=== PATIENT | female | born 1980 | race Caucasian/White ===

== ENCOUNTER → 2016-11-12 | Outpatient (CLI) | payer MEDICAID ==
[~2016-11-12] MED LIST: AMOX875T2 PO; AZIT250T5 PO; CYCL10TA9 PO; DOXY1TAB3 PO; HYOS0.1283 SL; MTP25TSR; MTP25TSR PO; ONDA4TAB8 PO; PNV91TAB3 PO
--- NOTE | 2016-11-12 12:39 | Diagnostic Imaging Report ---
First trimester OB ultrasound. INDICATION: Dating. FINDINGS: There is a normal-appearing single intrauterine . An embryo is seen with cardiac activity at 176 beats per minute. The crown-rump length is at 10 weeks and 2 days. DEBBY is 06/08/17. The ovaries are obscured by bowel gas . IMPRESSION: Live single intrauterine . Dictated by: Dictated on workstation # [id number]
== END ==
LOC: RAD 11:35
PROVIDERS: ATTEND Family Medicine
DX: Z36 Encounter for antenatal screening of mother (principal); Z3A.10 10 weeks gestation of pregnancy
CPT/HCPCS: 76801

== ENCOUNTER 2016-12-08 20:31 | Emergency (ER) | payer MEDICAID ==
[~2016-12-08] VITALS: Ht 154.9 cm; Wt 65.8 kg
[~2016-12-08 20:31] MED LIST changes: -AMOX875T2 PO; -AZIT250T5 PO; -DOXY1TAB3 PO; -PNV91TAB3 PO
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
[2016-12-08] MEDS ORDERED: PNV91TAB3 PO (20:47)
[2016-12-08] MEDS ORDERED: AMOX875T2 PO (20:47)
[2016-12-08 21:04] LABS: BILIRUBIN,URINE NEGATIVE (NEGATIVE); KETONES,URINE NEGATIVE (NEGATIVE); LEUKOCYTE ESTERASE ,URINE NEGATIVE (NEGATIVE); NITRITE,URINE NEGATIVE (NEGATIVE); PH,URINE 7 (5-9); PROTEIN,URINE NEGATIVE (NEGATIVE); UROBILINOGEN,URINE NORMAL (NORMAL)
--- NOTE | 2016-12-08 21:20 | ED GU-Female ---
General Chief Complaint: -Female Stated Complaint: SPOTTING, CRAMPING, APPROX 17 WKS PREG Nursing Triage Note: Pt c/o spotting starting just HAT PRESSER and lower abd cramping Nursing Sepsis Screen: No Definite Risk Source: patient Exam Limitations: no limitations History of Present Illness Time seen by provider: 21:03 Initial Comments Here with report of vaginal spotting tonight. She is and she is not exactly sure how far and thinks it may be 13 weeks now. She did have ultrasound which showed intrauterine . She does follow with Dr. Cortes. Denies vaginal discharge. She has not been sexually active for the last month. Denies persistent spotting. She does have some bilateral lower quadrant pain that is intermittent. Denies nausea or vomiting. Timing/Duration: this afternoon, intermittent Severity/Quality: mild Location: RLQ, LLQ Radiation: none Activities at Onset: none Sexual [place] History: less than 2 months ago, single partner Associated Symptoms: abdominal painNo dysuria, No fever/chills, No nausea/ vomiting, No urinary frequency Allergies and Home Medications Allergies Coded Allergies: No Known Drug Allergies (Unverified , 12/08/16) Home Medications Amoxicillin 875 Mg Tablet #20 875 MG PO BID (Reported) Pnv95/Ferrous Fumarate/FA 1 Each Tablet 1 EACH PO DAILY (Reported) Constitutional: see HPINo chills, No fever EENTM: no symptoms reported Respiratory: no symptoms reported Cardiovascular: no symptoms reported Gastrointestinal: see HPI Genitourinary: see HPI Expected Date of Delivery: Jun 08, 2017 Musculoskeletal: no symptoms reported Skin: no symptoms reported Past Gbkngjg-Skneys-Pdchlb Hx Patient Social History Alcohol Use: Denies Use Recreational Drug Use: No Smoking Status: Former Smoker Type Used: Cigarettes Recent Foreign Travel: No Contact w/Someone Who Travel: No Recent Infectious Disease Expo: No Recent Hopitalizations: Yes (during , 09/28, ) Surgeries HX Surgeries: Yes (BREAST-BENIGN LUMPECTOMY; ?LEEP? OF CERVIX; R WRIST/HAND-? GANGLION?; L KNEE) Surgeries: Breast, Orthopedic Respiratory Hx Respiratory Disorders: No Cardiovascular Hx Cardiac Disorders: No Neurological Hx Neurological Disorders: No Reproductive System : Yes Hx Reproductive Disorders: Yes (CERVICAL DYSPLASIA) Sexually Transmitted Disease: No Genitourinary Hx Genitourinary Disorders: No Gastrointestinal Hx Gastrointestinal Disorders: No Musculoskeletal Hx Musculoskeletal Disorders: Yes (RIGHT HAND/WRIST SURGERY, LEFT KNEE SURGERY) Endocrine Hx Endocrine Disorders: No HEENT HX ENT Disorders: No Cancer Hx Cancer: No Psychosocial Hx Psychiatric Problems: No Integumentary HX Skin/Integumentary Disorder: No Blood Transfusions Hx Blood Disorders: No Reviewed Nursing Assessment Reviewed/Agree w Nursing PMH: Yes Family Medical History Significant Family History: No Pertinent Family Hx Physical Exam Vital Signs Vital Sign - Last 12Hours 12/08/16 20:47 Temp 99.2 Pulse 86 Resp 18 B/P 128/79 Pulse Ox 97 O2 Delivery Room Air Capillary Refill : Less Than 3 Seconds General Appearance: WD/WN no apparent distress Neck: full range of motion supple Cardiovascular: regular rate, rhythm no murmur Respiratory: lungs clear normal breath sounds Gastrointestinal: non tender soft Pelvic: other (deferred per patient request) Back: normal inspection no CVA tenderness no vertebral tenderness Extremities: non-tender normal inspection Neurologic/Psychiatric: alert oriented x 3 Skin: normal color warm/dry Progress/Results/Core Measures Results/Orders Lab Results Laboratory Tests Test 12/08/16 20:56 Range/Units Urine Bacteria NEGATIVE /HPF Urine Bilirubin NEGATIVE NEGATIVE Urine Casts NONE /LPF Urine Clarity CLEAR Urine Color YELLOW Urine Crystals NONE /LPF Urine Culture Indicated NO Urine Glucose (UA) NEGATIVE NEGATIVE Urine Ketones NEGATIVE NEGATIVE Urine Leukocyte Esterase NEGATIVE NEGATIVE Urine Mucus NEGATIVE /LPF Urine Nitrite NEGATIVE NEGATIVE Urine Protein NEGATIVE NEGATIVE Urine RBC RARE /HPF Urine RBC (Auto) NEGATIVE NEGATIVE Urine Renal Epithelial Cells NONE /HPF Urine Specific [place] 1.015 L 1.016-1.022 Urine Squamous Epithelial Cells >50 H /HPF Urine Urobilinogen NORMAL NORMAL MG/DL Urine WBC 0-2 /HPF Urine pH 7 5-9 My Orders Orders-DWAYNE DEL ROSARIO MD Ua Culture If Indicated (12/08/16 20:54) Vital Signs/I&O Vital Sign - Last 12Hours 12/08/16 20:47 Temp 99.2 Pulse 86 Resp 18 B/P 128/79 Pulse Ox 97 O2 Delivery Room Air Blood Pressure Mean: 95 Progress Note : Progress Note Seen and evaluated. UA ordered. Bedside ultrasound shows intrauterine with fetus approximately 13 5/7 by femur length, positive movement and moderate amount of amniotic fluid. We will defer pelvic exam currently is patient denies vaginal discharge and she would like to wait to see her sales solutions associate which is reasonable. She is reassured by ultrasound. Monitor patient. 2200: No acute findings on UA. Discharged home with return precautions. Patient verbalize understanding instructions and agreement with plan. Departure Impression Impression: Primary Impression: Threatened miscarriage Additional Impression: Abdominal pain during Qualified Code: O26.891 - Other specified related conditions, first trimester Disposition: HOME, SELF-CARE Condition: Improved Departure-Patient Inst. Decision time for Depature: 21:24 Referrals: PATIENCE CORTES MD (PCP/Family) Primary Care Physician Patient Instructions: Threatened Miscarriage (DC) Add. Discharge Instructions: All discharge instructions reviewed with patient and/or family. Voiced understanding. Pelvic rest meaning no sexual activity or intravaginal insertion until cleared by your sales solutions associate. Follow-up with your Dr. in one to 2 days for recheck and further evaluation. Return for worse pain, fever, vomiting, weakness, breathing problems or other concerns as needed. You may take Tylenol ( acetaminophen) per package directions as needed for pain. Copy Copies To 1: PATIENCE CORTES MD, TIMOTHY D MD Dec 08, 2016 21:20
[2016-12-08 21:24] LABS: SQUAMOUS EPITHELIAL CELL,UR >50 /HPF; WBC,URINE 0-2 /HPF
[2016-12-08 22:10] VITALS: BP 117/82
== END 2016-12-08 22:10 | disposition home or self-care (01) ==
LOC: EDUNIT# 20:31 → ER 20:33
DX: O20.0 Threatened abortion (principal); O26.891 Other specified pregnancy related conditions, first trimester; Z3A.13 13 weeks gestation of pregnancy
CPT/HCPCS: 81000; 99283

== ENCOUNTER 2016-12-12 01:39 | Emergency (ER) | payer MEDICAID ==
[~2016-12-12] VITALS: Ht 154.9 cm; Wt 65.8 kg
[~2016-12-12 01:39] MED LIST changes: +AMOX875T2 PO; +PNV91TAB3 PO
--- OUTSIDE RECORDS SUMMARY | 2016-12-12 01:46 | XMS REPORT | Continuity of Care Document ---
Author Author [facility] Organization [facility] Address Unknown Phone Unavailable Care Team Providers Care Ict Teacher Name Role Phone PATIENCE JOHNSTON MD PCP Insurance Providers Payer Name Policy Number Subscriber Name Relationship [employer] [id number] Clint Rocha 18 Self / Same As Patient Advance Directives Directive Response Recorded Date/Time Advance Directives No 12/08/16 8:47pm Health Care Power of Cargo Tank Mechanic No 12/08/16 8:47pm Organ Donor No 12/08/16 8:47pm Resuscitation Status Full Code 12/08/16 8:47pm Chief Complaint and Reason for Visit Chief Complaint -Female Reason for Visit [id number] Abdominal pain during Problems Active Problems Medical Problem Onset Date Status Abdominal pain Unknown Acute Abdominal pain during Unknown Acute Threatened miscarriage Unknown Acute Medications Current Home Medications Medication Dose Units Route Directions Days/Qty Instructions Start Date Pnv95/Ferrous Fumarate/Fa 1 Each 1 Each Oral Daily 12/08/16 Amoxicillin 875 Mg 875 Mg Oral Twice A Day 20 12/08/16 Past Home Medications Medication Directions Ordered Status Metoprolol Succinate (Metoprolol Er 25MG) 25 Mg Tab, 12/19/09 Discontinued Metoprolol Succinate (Metoprolol Er 25MG) 25 Mg Tab, 25 Mg Oral Daily Discontinued Cyclobenzaprine Hcl (Flexeril) 10 Mg Tablet, 1 Each Oral Q8hr Prn 12/19/09 Discontinued Hyoscyamine Sulfate 0.125 Mg Tab.subl, 1-2 Tab Sublingual Every 4HRS for Abdominal Pain 02/02/16 Discontinued Ondansetron 4 Mg Tab.rapdis, 4 Mg Oral Every 4HRS for Nausea/Vomiting Discontinued Social History Social History Problem Response Recorded Date/Time Alcohol Use Denies Use 02/01/2016 11:33pm Recreational Drug Use No 02/01/2016 11:33pm Recent Foreign Travel No 12/08/2016 8:47pm Recent Infectious Disease Exposure No 12/08/2016 8:47pm Sexually Transmitted Disease No 12/08/2016 8:47pm Smoking Status Former Smoker 12/08/2016 8:47pm Do you dip or chew tobacco? No 02/01/2016 11:33pm Type Used Cigarettes 12/08/2016 8:47pm Recent Hopitalizations Y during , 09/28, 12/08/2016 8:47pm Sexually Transmitted Disease No 12/08/2016 8:47pm Hx Sexually Transmitted Disorders No 07/14/2008 10:55am Query Response Start Date Stop Date Smoking Status Former Smoker Hospital Discharge Instructions No hospital discharge instructions. Plan of Care Discharge Date 12/08/16 10:10pm Disposition 01 HOME, SELF-CARE Condition at Discharge Improved Instructions/Education Provided Threatened Miscarriage (DC) Prescriptions See Medication Section Referrals PATIENCE JOHNSTON MD - Primary Care Physician Additional Instructions/Education All discharge instructions reviewed with patient and/or family. Voiced understanding. 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 Follow-up with your Dr. in one to 2 days for recheck and further evaluation. Return for worse pain, fever, vomiting, weakness, breathing problems or other concerns as needed. You may take Tylenol (acetaminophen) per package directions as needed for pain. Functional Status No functional status results. Allergies, Adverse Reactions, Alerts No known allergies. Immunizations No immunization records. Vital Signs Acute Vital Signs Vital Response Date/Time Temperature (Fahrenheit) 99.2 degrees F (97.6 - 99.5) 12/08/2016 8:47pm Temperature (Calculated Celsius) 37.15416 degrees C (36.4 - 37.5) 12/08/2016 8:47pm Temperature Source Tympanic 12/08/2016 8:47pm Pulse Rate (adult) 86 bpm (60 - 90) 12/08/2016 8:47pm Respiratory Rate 18 bpm (12 - 24) 12/08/2016 8:47pm O2 Sat by Pulse Oximetry 97 % (88 - 100) 12/08/2016 8:47pm Blood Pressure 128/79 mm Hg 12/08/2016 8:47pm Blood Pressure Mean 95 mm Hg 12/08/2016 8:47pm Pain Numeric Pain Scale 5-Moderate Pain 12/08/2016 8:47pm Height (Feet) 5 feet 12/08/2016 8:47pm Height (Inches) 1 inches 12/08/2016 8:47pm Height (Calculated Centimeters) 154.237198 cm 12/08/2016 8:47pm Weight (Pounds) 145 pounds 12/08/2016 8:47pm Weight (Calculated Kilograms) 65.028401 kilograms 12/08/2016 8:47pm Capillary Refill Capillary Refill Less Than 3 Seconds 12/08/2016 8:47pm Height 5 ft 1 in Weight 145 lb Body Mass Index 27.4 kg/m^2 Results Pending Laboratory Results Test Name Collection Date/Time Procedures No known history of procedures. Encounters Encounter Location Arrival/Admit Date Discharge/Depart Date Attending Provider Departed Emergency Room [facility] 12/08/16 8:33pm 12/08 10:10pm DWAYNE DEL ROSARIO MD Registered Clinic [facility] 11/12/16 11:35am PATIENCE JOHNSTON MD Recent Diagnosis
[2016-12-12] MEDS ORDERED: ONDANSETRON 4 MG (ZOFRAN) ORAL DISSOLVE TAB PO ONE (02:00)
--- NOTE | 2016-12-12 02:13 | ED GI ---
General Chief Complaint: Abdominal/GI Problems Stated Complaint: N/V/D,13 1/2 WKS PREG Nursing Triage Note: PT TO ED 10 W/ FAMILY FOR C/O N/V/D ET ABD CRAMPING ONSET 1899 TONIGHT. PT ALSO REPORTS SHE IS 13 WKS AT THIS TIME Sepsis Screen: No Definite Risk Source of Information: Patient History of Present Illness Time Seen By Provider: 01:50 Initial Comments PT STATES SHE HAS HAD NAUSEA/VOMITING/DIARRHEA SINCE 1899 TONIGHT--FELT FINE ALL DAY TODAY STATES SHE HAS VOMITED AND HAD DIARRHEA "AT LEAST 20 TIMES EACH" LAST VOID UNKNOWN--STATES SHE DOES NOT KNOW IF SHE URINATES WHEN SHE HAS DIARRHEA OR NOT NO FEVER GENERALIZED ABDOMINAL SORENESS FROM VOMITING YOUNGEST CHILD HAS BEEN ILL WITH SAME--BROUGHT TO ER ON FRIDAY PT WAS ALSO SEEN HERE IN ER ON FRIDAY FOR MILD ABDOMINAL PAIN AND SLIGHT SPOTTING ONE TIME--NO PROBLEMS SINCE PT IS 13 WEEKS . HAS NOT HAD SIGNIFICANT MORNING SICKNESS WITH THIS PT HAS BEEN ON AMOXIL FOR URI--THOSE SYMPTOMS ARE BETTER. SEEN LAST WEEK BY DR. JOHNSTON, HAS ANOTHER WEEKS' WORTH OF MEDICATION --WAS GIVEN 10 DAY SUPPLY PCP: DR. JOHNSTON--SEEN 11/26/16 FOR OB VISIT Allergies and Home Medications Allergies Coded Allergies: No Known Drug Allergies (Unverified , 12/08/16) Home Medications Amoxicillin 875 Mg Tablet #20 875 MG PO BID (Reported) Doxylamine/Pyridoxine HCl 1 Each Tablet. #14 2 EACH PO HS Prescribed by: MIRIAN HARRISON on 12/12/16 0246 Ondansetron 4 Mg Tab.rapdis #6 4 MG PO Q4H Prescribed by: MIRIAN HARRISON on 12/12/16 0246 Pnv95/Ferrous Fumarate/FA 1 Each Tablet 1 EACH PO DAILY (Reported) Review of Systems Constitutional: no symptoms reported EENTM: See HPI Respiratory: No Symptoms Reported Cardiovascular: No Symptoms Reported Gastrointestinal: See HPI Genitourinary: See HPI Musculoskeletal: no symptoms reported Skin: no symptoms reported Psychiatric/Neurological: No Symptoms Reported Endocrine: No Symptoms Reported Hematologic/Lymphatic: No Symptoms Reported Past Pweaamy-Nabxmn-Bblcvb Hx Patient Social History Alcohol Use: Denies Use Recreational Drug Use: No Smoking Status: Former Smoker Type Used: Cigarettes Recent Foreign Travel: No Contact w/Someone Who Travel: No Recent Infectious Disease Expo: No Recent Hopitalizations: No Surgeries HX Surgeries: Yes (BREAST-BENIGN LUMPECTOMY; ?LEEP? OF CERVIX; R WRIST/HAND-? GANGLION?; L KNEE) Surgeries: Breast, Orthopedic Respiratory Hx Respiratory Disorders: No Cardiovascular Hx Cardiac Disorders: No Neurological Hx Neurological Disorders: No Reproductive System Hx : 4 Hx Para: 3 Hx Total # of Abortions (Spona: 0 Hx Reproductive Disorders: Yes (CERVICAL DYSPLASIA) Sexually Transmitted Disease: No Genitourinary Hx Genitourinary Disorders: No Gastrointestinal Hx Gastrointestinal Disorders: No Musculoskeletal Hx Musculoskeletal Disorders: Yes (RIGHT HAND/WRIST SURGERY, LEFT KNEE SURGERY) Endocrine Hx Endocrine Disorders: No HEENT HX ENT Disorders: No Cancer Hx Cancer: No Psychosocial Hx Psychiatric Problems: No Integumentary HX Skin/Integumentary Disorder: No Blood Transfusions Hx Blood Disorders: No Family Medical History Significant Family History: No Pertinent Family Hx Physical Exam Vital Signs VS - Last 72 Hours, by Label 12/12/16 01:44 Temp 95.8 Pulse 105 Resp 18 B/P 113/89 Pulse Ox 99 O2 Delivery Room Air Capillary Refill : Less Than 3 Seconds General Appearance: WD/WN no apparent distress other HEENT: PERRL/EOMI other (ORAL MUCOSA MOIST) Neck: normal inspection Respiratory: normal breath sounds no respiratory distress no accessory muscle use Cardiovascular: regular rate, rhythm no murmur Gastrointestinal: normal bowel sounds soft other (MILD DIFFUSE TENDERNESS. FUNDUS JUST ABOVE PUBIS) Extremities: normal inspection no pedal edema Back: no CVA tenderness Neurologic/Psychiatric: campground hand II-XII nml as tested no motor/sensory deficits alert normal mood/affect oriented x 3 Skin: normal color warm/dry Progress/Results/Core Measures Results/Orders My Orders Orders-MIRIAN HARRISON DO Ondansetron Oral Dissolve Tab (Zofran (12/12/16 02:00) Rx-Ondansetron Po (Rx-Zofran Po) (12/12/16 02:51) Medications Given in ED Current Medications Medications Dose Ordered Sig/Jeane Route Start Time Stop Time Status Last Admin Dose Admin Ondansetron HCl 4 mg ONCE ONCE PO 12/12/16 02:00 12/12/16 02:01 DC 12/12/16 02:01 4 MG Vital Signs/I&O Vital Sign - Last 12Hours 12/12/16 01:44 Temp 95.8 Pulse 105 Resp 18 B/P 113/89 Pulse Ox 99 O2 Delivery Room Air Blood Pressure Mean: 97 Progress Note : Progress Note GIVEN ZOFRAN--KEEPING WATER AND ICE CHIPS DOWN. STATES SHE IS FEELING MUCH BETTER NO VOMITING OR DIARRHEA DURING ER STAY Departure Impression Impression: Primary Impression: Gastroenteritis Disposition: HOME, SELF-CARE Condition: Improved Departure-Patient Inst. Referrals: PATIENCE JOHNSTON MD (PCP/Family) Primary Care Physician Patient Instructions: Viral Gastroenteritis, Adult (DC) Add. Discharge Instructions: CLEAR LIQUIDS--WATER, BROTH, JELLO, GATORADE TOMORROW IF YOU ARE BETTER, ADD BRATS DIET TO CLEAR LIQUIDS--BANANAS, RICE, APPLESAUCE, TOAST, SALTINES ACIDOPHILUS 2 PILLS 4 TIMES A DAY FOR 1 [address] FOLLOW UP WITH DR. JOHNSTON IN 1-2 DAYS IF NO BETTER All discharge instructions reviewed with patient and/or family. Voiced understanding. Scripts Ondansetron (Zofran Odt)4 Mg Tab.rapdis4 Mg PO Q4H Nausea/Vomiting #6 TAB Prov:MIRIAN HARRISON DO 12/12/16 Doxylamine/Pyridoxine HCl (Que Win 10-10 mg Tablet)1 Each Tablet.dr2 Each PO HS #14 TAB Prov:MIRIAN HARRISON DO 12/12/16 MIRIAN HARRISON DO Dec 12, 2016 02:13
[2016-12-12] MEDS ORDERED: ONDA4TAB8 PO ×2 (02:46→03:05)
[2016-12-12] MEDS ORDERED: DOXY1TAB3 PO ×2 (02:46→03:05)
[2016-12-12] MEDS ORDERED: RX-ONDANSETRON 4 MG ODT (ZOFRAN) PPK #4 PO STA (02:51)
[2016-12-12 02:58] VITALS: BP 0/0
== END 2016-12-12 02:58 | disposition home or self-care (01) ==
LOC: EDUNIT# 01:39 → ER 01:42
DX: O99.611 Diseases of the digestive system complicating pregnancy, first trimester (principal); K52.9 Noninfective gastroenteritis and colitis, unspecified; Z87.891 Personal history of nicotine dependence; Z3A.13 13 weeks gestation of pregnancy
CPT/HCPCS: 99283

== ENCOUNTER → 2017-01-27 | Outpatient (CLI) | payer MEDICAID ==
[~2017-01-27] MED LIST changes: +AZIT250T5 PO; +DOXY1TAB3 PO
--- NOTE | 2017-01-27 12:06 | Diagnostic Imaging Report ---
OB ultrasound. INDICATION: survey. The previous OB ultrasound exam performed on 11/12/2016, noted a single live intrauterine of approximately 10 weeks 2 days gestation +/- 1 week. On this study the fetus is again visualized. The fetus is cephalic in presentation. heart motion was noted, and a rate of 146 bpm was recorded. There are no abnormalities identified. The growth parameters are fairly uniform and have progressed as expected since the prior exam. The growth parameters are as follows: BPD: 5.11 20 weeks 4 days. Head circumference: 18.84 21 weeks 1 day. Abdominal circumference: 16.49 21 weeks 4 days. Femur length: 3.61 21 weeks 4 days. The estimated weight is 426 g. The LMP percentile is 62 percent. The placenta is posterior, and there is no previa. The amniotic fluid volume is within normal limits. The cervix was identified and measures 4.8 cm in length (normal 3 cm or greater.) IMPRESSION: 1. There is a single live fetus approximately 21 weeks 1 day gestation +/- 1 week. EDC remains 06/08/2017. 2. There are no abnormalities identified. 3. The growth parameters have progressed as expected since the prior exam. Dictated by: Dictated on workstation # [id number]
== END ==
LOC: RAD 11:06
PROVIDERS: ATTEND Family Medicine
DX: Z34.82 Encounter for supervision of other normal pregnancy, second trimester (principal); Z36 Encounter for antenatal screening of mother
CPT/HCPCS: 76805

== ENCOUNTER 2017-02-08 21:42 | Emergency (ER) | payer MEDICAID ==
[~2017-02-08] VITALS: Ht 154.9 cm; Wt 70.8 kg
[~2017-02-08 21:42] MED LIST changes: -AZIT250T5 PO
[2017-02-08] MEDS ORDERED: AZIT250T5 PO (22:34)
--- NOTE | 2017-02-08 22:34 | ED Cough/URI ---
General Chief Complaint: Cough/Cold/Flu Symptoms Stated Complaint: CHEST CONGESTION Nursing Triage Note: pt c/o congestion in chest and ears with cough, symptoms started this am, denies contractions, vag leakage, no difficulty with urination Source: patient Exam Limitations: no limitations History of Present Illness Time seen by provider: 22:31 Initial Comments To ER with rhinorrhea, sore throat, nonproductive cough and pressure in her ears that began this morning upon awakening. No fevers. She is , about 23 weeks gestation. Timing/Duration: this morning Severity/Quality: mild Associated Symptoms: cough Allergies and Home Medications Allergies Coded Allergies: No Known Drug Allergies (Unverified , 12/08/16) Home Medications Amoxicillin 875 Mg Tablet, 875 MG PO BID, #20 (Reported) Doxylamine/Pyridoxine HCl 1 Each Tablet.dr, 2 EACH PO HS, #14 Prescribed by: MIRIAN HARRISON on 12/12/16 0305 Ondansetron 4 Mg Tab.rapdis, 4 MG PO Q4H, #6 Prescribed by: MIRIAN HARRISON on 12/12/16 0305 Pnv95/Ferrous Fumarate/FA 1 Each Tablet, 1 EACH PO DAILY, (Reported) Constitutional: see HPI, No chills, No fever EENTM: ear pain, see HPI Respiratory: see HPI, cough Genitourinary: no symptoms reported Expected Date of Delivery: Jun 08, 2017 Musculoskeletal: no symptoms reported Past Xofgetl-Fwmbkm-Yzqwhb Hx Patient Social History Type Used: Cigarettes Recent Foreign Travel: No Contact w/Someone Who Travel: No Recent Infectious Disease Expo: No Recent Hopitalizations: No Surgeries HX Surgeries: Yes (BREAST-BENIGN LUMPECTOMY; ?LEEP? OF CERVIX; R WRIST/HAND-? GANGLION?; L KNEE) Surgeries: Breast, Orthopedic Respiratory Hx Respiratory Disorders: No Cardiovascular Hx Cardiac Disorders: No Neurological Hx Neurological Disorders: No Reproductive System : Yes Hx : 3 Hx Para: 3 Hx Reproductive Disorders: Yes (CERVICAL DYSPLASIA) Sexually Transmitted Disease: No Genitourinary Hx Genitourinary Disorders: No Gastrointestinal Hx Gastrointestinal Disorders: No Musculoskeletal Hx Musculoskeletal Disorders: Yes (RIGHT HAND/WRIST SURGERY, LEFT KNEE SURGERY) Endocrine Hx Endocrine Disorders: No HEENT HX ENT Disorders: No Cancer Hx Cancer: No Psychosocial Hx Psychiatric Problems: No Integumentary HX Skin/Integumentary Disorder: No Blood Transfusions Hx Blood Disorders: No Family Medical History Significant Family History: No Pertinent Family Hx Physical Exam Vital Signs Vital Sign - Last 12Hours 02/08/17 21:59 Temp 99.3 Pulse 103 Resp 22 B/P (MAP) 117/68 Pulse Ox 99 O2 Delivery Room Air Capillary Refill : Less Than 3 Seconds General Appearance: WD/WN, no apparent distress Eyes: Bilateral Eye EOMI, Bilateral Eye Normal Inspection, Bilateral Eye PERRL HEENT: PERRL/EOMI, normal ENT inspection, TMs normal, pharyngeal erythema Neck: non-tender, full range of motion Respiratory: no respiratory distress, no accessory muscle use Gastrointestinal: normal bowel sounds, non tender, soft Extremities: normal range of motion, non-tender Neurologic/Psychiatric: alert, normal mood/affect Skin: normal color, warm/dry Progress/Results/Core Measures Results/Orders My Orders Orders - JAMES VALENTIN APRN Azithromycin Tablet (Zithromax Tablet) (02/09/17 09:00) Vital Signs/I&O Vital Sign - Last 12Hours 02/08/17 21:59 Temp 99.3 Pulse 103 Resp 22 B/P (MAP) 117/68 Pulse Ox 99 O2 Delivery Room Air Blood Pressure Mean: 84 Departure Impression Impression: Primary Impression: Upper respiratory infection Disposition: 01 HOME, SELF-CARE Condition: Stable Departure-Patient Inst. Decision time for Depature: 22:33 Referrals: PATIENCE JOHNSTON MD (PCP/Family) Primary Care Physician Patient Instructions: Bacterial Upper Respiratory Infection, Adult (DC) Add. Discharge Instructions: 1. Follow-up with Dr. Johnston next week 2. Return to ER for any concerns 3. Tylenol as needed for aches or fevers. Benadryl for runny nose. All discharge instructions reviewed with patient and/or family. Voiced understanding. Scripts Azithromycin (Azithromycin) 250 Mg Tablet 250 MG PO DAILY, #4 TAB Prov: JAMES VALENTIN APRN 02/08/17 JAMES VALENTIN APRN Feb 08, 2017 22:34
[2017-02-08] MEDS ORDERED: AZITHROMYCIN 250 MG TAB (ZITHROMAX) PO ONE (22:41)
[2017-02-08 22:46] VITALS: BP 0/0
[2017-02-09] MEDS ORDERED: AZITHROMYCIN 250 MG TAB (ZITHROMAX) PO SCH (09:00)
== END 2017-02-08 22:46 | disposition home or self-care (01) ==
LOC: EDUNIT# 21:42 → ER 21:44
DX: O99.512 Diseases of the respiratory system complicating pregnancy, second trimester (principal); J06.9 Acute upper respiratory infection, unspecified; Z3A.23 23 weeks gestation of pregnancy
CPT/HCPCS: 99283

== ENCOUNTER 2017-04-28 09:39 | Outpatient (RCR) | payer MEDICAID ==
[~2017-04-28] VITALS: Ht 154.9 cm; Wt 75.3 kg
[~2017-04-28 09:39] MED LIST changes: +AZIT250T5 PO
[2017-04-28 10:45] VITALS: BP 121/76
[2017-05-05 11:35] VITALS: BP 162/80
[2017-05-12 10:52] VITALS: BP 132/91
[2017-05-19] VITALS (7 sets, daily range): BP systolic 130–170; BP diastolic 75–115
[2017-05-19] MEDS ORDERED: D5 LR IV SOLUTION 1,000 ML IV ONE (12:15)
[2017-05-19] MEDS ORDERED: D5 LR IV SOLUTION 1,000 ML IV SCH (13:15)
--- NOTE | 2017-05-19 13:36 | Diagnostic Imaging Report ---
OB Ultrasound. Biophysical profile. INDICATION: Nonreassuring stress test. FINDINGS: heart rate is 150 beats per minutes. The position is cephalic. The placenta is fundal. RAUL is 12.1 CM. Biophysical profile criteria are all met for a total score of 8 of 8. IMPRESSION: Total biophysical profile is 8/8. Dictated by: Dictated on workstation # [id number]
[2017-05-20 10:55] VITALS: BP 134/81
[2017-05-20 12:38] VITALS: BP 134/81
[2017-05-28] MEDS ORDERED: IBUP-1773 PO (07:36)
== END 2017-07-26 | disposition home or self-care (01) ==
LOC: WSo 09:39
PROVIDERS: ATTEND Family Medicine
DX: Z3A.34 34 weeks gestation of pregnancy; O24.419 Gestational diabetes mellitus in pregnancy, unspecified control
CPT/HCPCS: 59025; 76819; 82570; 84156; 96360

== ENCOUNTER 2017-05-26 20:00 | Inpatient (IN) | payer MEDICAID ==
[~2017-05-26] VITALS: Ht 152.4 cm; Wt 78.3 kg
[~2017-05-26 20:00] MED LIST changes: +AZIT250T12 PO; -AZIT250T5 PO
[2017-05-26 20:10] VITALS: BP 138/81
[2017-05-26] MEDS ORDERED: AMPICILLIN INJECTION 2,000 MG in NS (IVPB) 50 ML IV SCH (20:15)
[2017-05-26] MEDS ORDERED: MEPIVACAINE (CARBOCAINE) 2% 50 ML VIAL INJ PRN (20:15)
[2017-05-26] MEDS ORDERED: ZOLPIDEM 5 MG (AMBIEN) TAB PO PRN (20:15)
[2017-05-26] MEDS ORDERED: DINOPROSTONE 10 MG (CERVIDIL) INSERT PV NR (20:15)
[2017-05-26] MEDS ORDERED: CATHETER FLUSH 10 ML SYR IV PRN (20:30)
[2017-05-26] MEDS: NS IV 1000 ML 1,000 ML IV SCH (20:48)
[2017-05-26 21:02] LABS: BASOPHILS % (AUTO) 0 % (0-10); EOSINOPHILS # (AUTO) 0.2 10^3/uL (0.0-0.3); EOSINOPHILS % (AUTO) 2 % (0-10); LYMPHOCYTES # (AUTO) 3.2 X 10^3 (1.0-4.0); LYMPHOCYTES % (AUTO) 27 % (12-44); MEAN CORPUSCULAR HEMOGLOBIN 32 PG (25-34); MEAN CORPUSCULAR HGB CONC 34 G/DL (32-36); MEAN CORPUSCULAR VOLUME 96 FL (80-99); MEAN PLATELET VOLUME 10.5 FL (7.4-10.4); MONOCYTES # (AUTO) 0.8 X 10^3 (0.0-1.0); MONOCYTES % (AUTO) 7 % (0-12); NEUTROPHILS # (AUTO) 7.6 X 10^3 (1.8-7.8); NEUTROPHILS % (AUTO) 64 % (42-75); PLATELET COUNT 298 10^3/uL (130-400); RED BLOOD COUNT 3.58 10^6/uL (4.35-5.85); RED CELL DISTRIBUTION WIDTH 13.9 % (10.0-14.5); WHITE BLOOD COUNT 11.9 10^3/uL (4.3-11.0)
[2017-05-26 21:03] LABS: BILIRUBIN,URINE NEGATIVE (NEGATIVE); KETONES,URINE NEGATIVE (NEGATIVE); LEUKOCYTE ESTERASE ,URINE 3+ (NEGATIVE); NITRITE,URINE NEGATIVE (NEGATIVE); PH,URINE 6.5 (5-9); PROTEIN,URINE 1+ (NEGATIVE); UROBILINOGEN,URINE 1 MG/DL (NORMAL)
[2017-05-26 21:11] LABS: SQUAMOUS EPITHELIAL CELL,UR >50 /HPF
[2017-05-26 22:00] VITALS: BP 146/76
[2017-05-26] MEDS ORDERED: CATHETER FLUSH 10 ML SYR IV SCH (22:00)
[2017-05-27] VITALS (41 sets, daily range): BP systolic 127–181; BP diastolic 70–96
[2017-05-27] MEDS: AMPICILLIN INJECTION 1,000 MG in NS (IVPB) 50 ML IV SCH ×4 (00:59→13:06)
[2017-05-27] MEDS: NS IV 1000 ML 1,000 ML IV SCH ×2 (04:29→13:27)
[2017-05-27] MEDS ORDERED: BUTORPHANOL INJ 2 MG/ML (STADOL) VIAL ONE (05:00)
[2017-05-27] MEDS: BUTORPHANOL INJ 2 MG/ML (STADOL) VIAL IV PRN ×5 (05:13→14:17)
--- NOTE | 2017-05-27 07:07 | History & Physical-OB ---
OB - Chief Complaint & HPI Date/Time Date of Admission: Date of Admission: May 26, 2017 at 20:00 Time Seen by Provider: 07:05 Chief Complaint/History OB-Reason for Admission/Chief: Induction of Labor Hx : 4 Hx Para: 3 Expected Date of Delivery: Jun 08, 2017 Gestational Age in Weeks: 38 Gestational Age in Days: 2 Indication for induction: other (PIH and gestational diabetes) Admission Nurse Assessment Rev: Yes History of Labs GBS positive Allergies and Home Medications Allergies Coded Allergies: No Known Drug Allergies (Unverified , 12/08/16) Home Medications Amoxicillin 875 Mg Tablet, 875 MG PO BID, #20 (Reported) Azithromycin 250 Mg Tablet, 250 MG PO DAILY, #4 Prescribed by: JAMES VALENTIN on 02/08/17 2234 Doxylamine/Pyridoxine HCl 1 Each Tablet.dr, 2 EACH PO HS, #14 Prescribed by: MIRIAN HARRISON on 12/12/16 0305 Ondansetron 4 Mg Tab.rapdis, 4 MG PO Q4H, #6 Prescribed by: MIRIAN HARRISON on 12/12/16 0305 Pnv95/Ferrous Fumarate/FA 1 Each Tablet, 1 EACH PO DAILY, (Reported) OB - History Hx of Present Care: Yes Ultrasounds: Normal mid trimester US Obstetrical Complications: Gestational Diabetes, Other (PIH) Medical Complications: None Delivery History Hx Blood Disorders: No Patient Past Medical History No chronic medical problems Social History/Family History HIV/AIDS: No Recent Infectious Disease Expo: No Sexually Transmitted Disease: No Alcohol Use: Denies Use Recreational Drug Use: No OB - Admission Exam Physical Exam Date Seen by Provider: May 27, 2017 Time Seen by Provider: 07:05 Vitals: Vital Signs 05/27/17 04:30 Temp 97.7 Pulse 62 Resp 18 B/P (MAP) 139/84 HEENT: Moist Membranes Heart: Rhythm Normal Lungs: Clear Abdomen: Gravid Cervical Dilatation: 2cm Effacement: 50% Station: -3 Membranes: Intact Accelerations: Accelerations Present Short Term Variability: Present Contractions on Admission: < 5 Minutes Apart Avendano Scoring Tool (Modified) Dilation (cm): 1-2cm (1) Effacement (%): 31-51% (1) Descent/Station: -3 (0) Cervix Consistency: Medium(1) Cervix Position: Middle/Mid-Position (1) Add 1 point for: Each previous vaginal delivery (1) Avendano Score: 5 Labs Laboratory Tests Test 05/26/17 20:10 05/26/17 20:25 Range/Units Urine Color YELLOW Urine Clarity VERY CLOUDY H Urine pH 6.5 5-9 Urine Specific [place] 1.020 1.016-1.022 Urine Protein 1+ H NEGATIVE Urine Glucose (UA) NEGATIVE NEGATIVE Urine Ketones NEGATIVE NEGATIVE Urine Nitrite NEGATIVE NEGATIVE Urine Bilirubin NEGATIVE NEGATIVE Urine Urobilinogen 1 NORMAL MG/DL Urine Leukocyte Esterase 3+ H NEGATIVE Urine RBC (Auto) 5+ H NEGATIVE Urine RBC 5-10 H /HPF Urine WBC 10-25 H /HPF Urine Squamous Epithelial Cells >50 H /HPF Urine Crystals NONE /LPF Urine Bacteria MODERATE H /HPF Urine Casts NONE /LPF Urine Mucus NEGATIVE /LPF Urine Culture Indicated YES White Blood Count 11.9 H 4.3-11.0 10^3/uL Red Blood Count 3.58 L 4.35-5.85 10^6/uL Hemoglobin 11.6 11.5-16.0 G/DL Hematocrit 34 L 35-52 % Mean Corpuscular Volume 96 80-99 FL Mean Corpuscular Hemoglobin 32 25-34 PG Mean Corpuscular Hemoglobin Concent 34 32-36 G/DL Red Cell Distribution Width 13.9 10.0-14.5 % Platelet Count 298 130-400 10^3/uL Mean Platelet Volume 10.5 H 7.4-10.4 FL Neutrophils (%) (Auto) 64 42-75 % Lymphocytes (%) (Auto) 27 12-44 % Monocytes (%) (Auto) 7 0-12 % Eosinophils (%) (Auto) 2 0-10 % Basophils (%) (Auto) 0 0-10 % Neutrophils # (Auto) 7.6 1.8-7.8 X 10^3 Lymphocytes # (Auto) 3.2 1.0-4.0 X 10^3 Monocytes # (Auto) 0.8 0.0-1.0 X 10^3 Eosinophils # (Auto) 0.2 0.0-0.3 10^3/uL Basophils # (Auto) 0.0 0.0-0.1 10^3/uL Glucose Level 156 H 70-105 MG/DL OB - Assessment/Plan/Diagnosis Assessment Assessment: induction of labor (at 38w2d due to PIH and gestational diabetes) Plan Plan: Induction (via cervidil) Other Plan GBS positive by vag culture at 36 weeks -ampicillin protochol PATIENCE JOHNSTON MD May 27, 2017 07:07
[2017-05-27] MEDS ORDERED: OXYTOCIN/NORMAL SALINE 500 ML IV SCH ×2 (07:21→16:23)
[2017-05-27] MEDS ORDERED: MINERAL OIL CONCENTRATE 99.9% 15 ML UDC ONE (07:33)
--- NOTE | 2017-05-27 16:23 | OB Labor & Delivery Record ---
L&D History Date of Service Date of Service: May 27, 2017 History Expected Date of Delivery: Jun 08, 2017 Gestational Age in Weeks: 38 Hx : 4 Hx Para: 3 Complications Events: Routine care Operative Indications (Cesarea: N/A-Vaginal Delivery Other Complications GBS positive L&D Stage1 Stage One Onset of Labor - Date: May 27, 2017 Onset of Labor - Time: 07:10 Monitors and Tracing Monitor Mode: Internal Heart Rate: 125 Monitor Accelerations: Uniform Monitor Decelerations: Variable Station: -1 Claims Vice President Variability: Average (6-10) Short Term Variability: Present Presentation: Vertex Vital Signs VS - Last 72 Hours, by Label 05/26/17 05/26/17 05/27/17 05/27/17 20:10 22:00 00:00 02:25 Temp 98.0 97.9 97.4 Pulse 73 91 79 65 Resp 18 18 18 20 B/P (MAP) 138/81 146/76 154/87 172/86 05/27/17 05/27/17 05/27/17 05/27/17 04:30 07:20 07:50 08:20 Temp 97.7 98.4 Pulse 62 62 63 63 Resp 18 18 18 18 B/P (MAP) 139/84 150/82 154/72 154/72 Pulse Ox 98 O2 Delivery Room Air Room Air Room Air 05/27/17 05/27/17 05/27/17 05/27/17 08:45 09:15 09:30 10:00 Temp 98.6 98.5 Pulse 71 56 61 65 Resp 18 18 18 18 B/P (MAP) 139/81 141/73 140/77 144/78 O2 Delivery Room Air Room Air Room Air Room Air 05/27/17 05/27/17 05/27/17 05/27/17 10:30 11:00 11:30 11:45 Temp 98.6 Pulse 60 60 69 74 Resp 18 18 18 18 B/P (MAP) 135/70 181/96 138/88 142/87 O2 Delivery Room Air Room Air Room Air Room Air 05/27/17 05/27/17 05/27/17 05/27/17 12:00 12:15 12:30 12:45 Pulse 60 67 63 61 Resp 18 18 18 18 B/P (MAP) 161/80 149/72 138/77 139/73 O2 Delivery Room Air Room Air Room Air Room Air 05/27/17 13:00 Temp 99.0 Pulse 65 Resp 18 B/P (MAP) 156/86 O2 Delivery Room Air Signs of Distress by FHT Signs of Distress no Rupture of Membranes Spontaneous Ruture of Membrane: No Amniotic Membrane Rupture Time: 0715 Amniotic Membrane Fluid Desc.: Clear Induction/Anesthesia Medications Stadol L&D Stage2 Stage Two Stage II Date: May 27, 2017 Stage II Time: 15:44 Monitors and Tracing Monitor Mode: Internal Heart Rate: 125 Monitor Accelerations: Uniform Monitor Decelerations: Variable Alf Variability: Average (6-10) Short Term Variability: Present Position: Left Occiput Anterior Presentation: Vertex Signs of Distress by FHT Signs of Distress no Cord Descript/Complications Cord Vessel Description: 3 Vessels Delivery Type Infant Delivery Method: Spontaneous Vaginal Anterior Shoulder: Left Episiotomy/Perineal Laceration Laceraction(s)/Extensions: Yes Episiotomy Description: Perineal Extension/lac, 1st degree Sutures Used: Vicryl Condition of Delivery 1 minute Comment: 8 5 minute Comment: 9 Condition of Condition of Infant: Living Exam: No Observed Abnormalities Resuscitation Resuscitation: N/A - Spontaneous Resp L&D Stage3 Stage Three Stage III Date: May 27, 2017 Stage III Time: 15:48 Pictocin Pitocin Administration mu/min: 6 Pitocin ml/hr: 6 Pitocin Administration Comment: OXYTOCIN INCREASED Placenta Delivery Placenta Delivery: Spontaneous Delivery Summary Summary Vaginal blood loss >500ml: No 200 Condition of Delivery Examined: Cervix Examined Post Hemorrhage: No PATIENCE JOHNSTON MD May 27, 2017 16:23
[2017-05-27] MEDS ORDERED: MEASLES,MUMPS,RUBELLA 1 EA INJ SQ ONE (16:30)
[2017-05-27] MEDS ORDERED: TETANUS,DIPTH,PERTUSS P/F (BOOSTRIX) 0.5 ML VIAL IM ONE (16:30)
[2017-05-27] MEDS: IBUPROFEN 600 MG (MOTRIN) TAB PO SCH ×2 (16:51→23:13)
[2017-05-27] MEDS: BENZOCAINE/MENTHOL (DERMOPLAST) 56 ML CAN TP PRN (16:51)
[2017-05-27] MEDS: WITCH HAZEL(TUCKS) 40 EA JAR TOP PRN (16:51)
[2017-05-27] MEDS: HYDROcodone/APAP 5 MG/325 MG (LORTAB) TAB PO PRN ×2 (19:54→23:13)
[2017-05-27] MEDS ORDERED: CATHETER FLUSH 10 ML SYR IV SCH (22:00)
[2017-05-28 02:35] VITALS: BP 147/83
[2017-05-28 05:57] LABS: BASOPHILS % (AUTO) 0 % (0-10); EOSINOPHILS # (AUTO) 0.2 10^3/uL (0.0-0.3); EOSINOPHILS % (AUTO) 1 % (0-10); LYMPHOCYTES # (AUTO) 3.7 X 10^3 (1.0-4.0); LYMPHOCYTES % (AUTO) 23 % (12-44); MEAN CORPUSCULAR HEMOGLOBIN 32 PG (25-34); MEAN CORPUSCULAR HGB CONC 33 G/DL (32-36); MEAN CORPUSCULAR VOLUME 97 FL (80-99); MONOCYTES % (AUTO) 6 % (0-12); NEUTROPHILS # (AUTO) 11.4 X 10^3 (1.8-7.8); NEUTROPHILS % (AUTO) 70 % (42-75); PLATELET COUNT 255 10^3/uL (130-400); RED BLOOD COUNT 2.88 10^6/uL (4.35-5.85); RED CELL DISTRIBUTION WIDTH 13.7 % (10.0-14.5); WHITE BLOOD COUNT 16.3 10^3/uL (4.3-11.0)
[2017-05-28] MEDS: IBUPROFEN 600 MG (MOTRIN) TAB PO SCH ×3 (06:37→18:22)
[2017-05-28] MEDS: BENZOCAINE/MENTHOL (DERMOPLAST) 56 ML CAN TP PRN (06:38)
--- NOTE | 2017-05-28 07:25 | Discharge Summary ---
Diagnosis/Chief Complaint Date of Admission May 26, 2017 at 20:00 Date of Discharge May 28, 2017 Discharge Date: May 28, 2017 Discharge Time: 18:00 Admission Diagnosis Admission Diagnosis 1. Intrauterine at 38 weeks 4 days gestation 2. Gestational diabetes 3. -induced hypertension Discharge Diagnosis 1. Intrauterine at 38 weeks 4 days gestation 2. Gestational diabetes 3. -induced hypertension 4. Anemiadue to blood loss following delivery Reason Hospital Visit 37-year-old female 4 now term 4 who was admitted for induction of labor on May 26, 2017 secondary to -induced hypertension as well as gestational diabetes. She was noted to be at 38 weeks 4 days gestation. She was admitted for Cervidil cervical ripening. Discharge Summary-OBS Procedures 1. Spontaneous vaginal delivery 2. Repair of first-degree perineal laceration Discharge Physical Examination Allergies: Coded Allergies: latex (Verified Allergy, Unknown, 05/27/17) SWELLING Vitals & I&Os Vital Signs Date Time Temp Pulse Resp B/P (MAP) Pulse Ox O2 Delivery O2 Flow Rate FiO2 05/27/17 22:35 97.6 75 20 151/84 97 Room Air 05/27/17 15:44 15.00 General Appearance: No Acute Distress Respiratory: Clear to Auscultation Cardiovascular: Regular Rate Abdominal: Soft (with uterus firm) Hospital Course following admission patient underwent Cervidil cervical ripening. Patient tolerated the Cervidil well and began a contraction pattern. She ultimately underwent amniotomy at 07 100 on May 27, 2017. Patient continued to contract and eventually went on to complete cervical dilation. She was allowed to push and delivered a term viable male. She did not receive epidural during the course of her labor but she did require Pitocin augmentation. Patient delivered a 7 lbs. 4 oz. infant with Apgars of 8 at 1 minute and 9 at 5 minutes. There was a natural first degree perineal laceration that was repaired with Vicryl. Following delivery patient underwent routine care orders. She was noted to medications or remainder of her hospital stay. she tolerated regular diet and was ambulatory. she had no shortness of breath was felt ready for dismissal during the afternoon of may 28, 2017. Addendum: patient didn't want dismissal on the Afternoon of May since her son was spending an additional day in hospital due to poor feedings. She was dismissed in the am of May 29, 2017. Pending Labs Laboratory Tests 05/28/17 05:41: White Blood Count 16.3, Red Blood Count 2.88, Hemoglobin 9.1, Hematocrit 28, Mean Corpuscular Volume 97, Mean Corpuscular Hemoglobin 32, Mean Corpuscular Hemoglobin Concent 33, Red Cell Distribution Width 13.7, Platelet Count 255, Mean Platelet Volume 10.0, Neutrophils (%) (Auto) 70, Lymphocytes (%) (Auto) 23 , Monocytes (%) (Auto) 6, Eosinophils (%) (Auto) 1, Basophils (%) (Auto) 0, Neutrophils # (Auto) 11.4, Lymphocytes # (Auto) 3.7, Monocytes # (Auto) 1.0, Eosinophils # (Auto) 0.2, Basophils # (Auto) 0.0 Discharge Instructions to patient/family Please see electonic discharge instructions given to patient. Discharge Medications Reviewed and agree with Discharge Medication list on patient's Discharge Instruction sheet Clinical Quality Measures DVT/VTE Risk/Contraindication: Risk Factor Score Per Nursin RFS Level Per Nursing on Admit: 1=Low/No VTE PPX PATIENCE JOHNSTON MD May 28, 2017 07:25
[2017-05-28] MEDS ORDERED: IBUP-1773 PO (07:36)
--- NOTE | 2017-05-28 07:37 | Discharge Inst-Women's Service ---
Discharge Inst-Women's Serv Depart Medication/Instructions New, Converted or Re-Newed RX: Transmitted to Pharmacy ([facility]) Consults/Follow Up Additional Follow Up: Yes (Dr Johnston in 6 weeks) Activity Activity: Activity as Tolerated Driving Instructions: You May Drive Nothing Inside Vagina: No [place] (for 6 weeks) Diet Discharge Diet: Regular Diet Return to The Hospital For: as below Symptoms to Report to : Bleeding Excessive, Pain Increased, Fever Over 101 Degrees F, Vaginal Bleeding Increase, Vaginal Discharge Foul For Any Problems or Questions: Contact Your Physician PATIENCE JOHNSTON MD May 28, 2017 07:37
[2017-05-28 09:15] VITALS: BP 141/81
[2017-05-28] MEDS ORDERED: TETANUS,DIPTH,PERTUSS P/F (BOOSTRIX) 0.5 ML VIAL IM ONE (09:40)
[2017-05-28] MEDS: WITCH HAZEL(TUCKS) 40 EA JAR TOP PRN (10:10)
[2017-05-28 12:45] VITALS: BP 144/83
[2017-05-28 16:45] VITALS: BP 143/80
[2017-05-28 21:30] VITALS: BP 145/87
[2017-05-29] MEDS: IBUPROFEN 600 MG (MOTRIN) TAB PO SCH ×2 (00:24→06:20)
[2017-05-29 02:58] VITALS: BP 147/82
[2017-05-29 08:00] VITALS: BP 140/84
== END 2017-05-29 09:02 | disposition home or self-care (01) | DRG 775 ==
LOC: LDRP 20:00 → ENPENDDIS 05-28 18:00
PROVIDERS: ADMIT Family Medicine; ATTEND Family Medicine
PROC: 3E0P7GC Introduction of Other Therapeutic Substance into Female Reproductive, Via Natural or Artificial Opening (ICD-10-PCS; 2017-05-26)
PROC: 0HQ9XZZ Repair Perineum Skin, External Approach (ICD-10-PCS; principal; 2017-05-27)
PROC: 10E0XZZ Delivery of Products of Conception, External Approach (ICD-10-PCS; 2017-05-27)
DX: O13.4 Gestational [pregnancy-induced] hypertension without significant proteinuria, complicating childbirth (principal); O24.429 Gestational diabetes mellitus in childbirth, unspecified control; O99.824 Streptococcus B carrier state complicating childbirth; O70.0 First degree perineal laceration during delivery; O90.81 Anemia of the puerperium; D62 Acute posthemorrhagic anemia; Z3A.38 38 weeks gestation of pregnancy; Z37.0 Single live birth; Z23 Encounter for immunization
CPT/HCPCS: 36415; 81000; 82947; 85025; 86850; 86900; 86901; 87088; 90715

== ENCOUNTER → 2017-06-02 | Outpatient (CLI) | payer MEDICAID ==
[~2017-06-02] MED LIST changes: -AZIT250T12 PO; +AZIT250T5 PO; +IBUP-1773 PO
--- NOTE | 2017-06-02 10:57 | Diagnostic Imaging Report ---
Three views of the right ankle. INDICATION: Right ankle pain. FINDINGS: There is no fracture, dislocation or radiopaque foreign body. The ankle mortise is normal in configuration. There is soft tissue swelling mostly along the lateral aspect. IMPRESSION: No fracture seen. Dictated by: Dictated on workstation # [id number]
--- NOTE | 2017-06-02 10:59 | Diagnostic Imaging Report ---
EXAMINATION: Three views of the right foot. INDICATION: Right foot pain. FINDINGS: There is no fracture, dislocation, or radiopaque foreign body. Joint alignment is satisfactory. IMPRESSION: Unremarkable exam. Dictated by: Dictated on workstation # [id number]
== END ==
LOC: RAD 10:05
PROVIDERS: ATTEND Family Medicine
DX: M25.571 Pain in right ankle and joints of right foot (principal)
CPT/HCPCS: 73610; 73630

== ENCOUNTER 2018-01-04 15:11 | Emergency (ER) | payer MEDICAID ==
[~2018-01-04] VITALS: Ht 154.9 cm; Wt 66.2 kg
[~2018-01-04 15:11] MED LIST changes: +AZIT250T12 PO; -AZIT250T5 PO
--- NOTE | 2018-01-04 15:42 | ED Integumentary General ---
General Chief Complaint: Head/Cervical Problems Stated Complaint: KNOTS IN BACK ON NECK Nursing Triage Note: PT REPORTS KNOTS ON BACK OF HEAD AND NECK STARTING YESTERDAY Source: patient Exam Limitations: no limitations History of Present Illness Date Seen by Provider: Jan 04, 2018 Time Seen by Provider: 15:37 Initial Comments The patient is a 37-year-old white female who presents today with a complaint of a tender knot in her scalp and several tiny knots in her neck. This is a new complaint. There is been no drainage. She has no other illnesses. Timing/Duration: yesterday Location: scalp Possible Cause: no cause identified Associated Symptoms: denies symptoms Allergies and Home Medications Allergies Coded Allergies: latex (Verified Allergy, Unknown, 05/27/17) SWELLING Home Medications Doxylamine/Pyridoxine HCl 1 Each Tablet.dr, 2 EACH PO HS Prescribed by: MIRIAN HARRISON on 12/12/16 0305 Ibuprofen 600 Mg Tablet, 600 MG PO Q6H Prescribed by: PATIENCE JOHNSTON on 05/28/17 0736 Pnv95/Ferrous Fumarate/FA 1 Each Tablet, 1 EACH PO DAILY, (Reported) Patient Home Medication List Home Medication List Reviewed: Yes Constitutional: see HPI EENTM: no symptoms reported Respiratory: no symptoms reported Cardiovascular: no symptoms reported Gastrointestinal: no symptoms reported Genitourinary: no symptoms reported Musculoskeletal: no symptoms reported Skin: no symptoms reported Psychiatric/Neurological: No Symptoms Reported Endocrine: No Symptoms Reported Hematologic/Lymphatic: No Symptoms Reported Past Xqbfvit-Jsyuvz-Qbfwie Hx Patient Social History Alcohol Use: Denies Use Recreational Drug Use: No Smoking Status: Current Everyday Smoker Type Used: Cigarettes Former Smoker, Quit: Oct 27, 2016 Recent Foreign Travel: No Contact w/Someone Who Travel: No Recent Infectious Disease Expo: No Recent Hopitalizations: No Seasonal Allergies Seasonal Allergies: No Surgeries History of Surgeries: Yes (BREAST-BENIGN LUMPECTOMY; LEEP OF CERVIX; R WRIST/ HAND-GANGLION; L KNEE) Surgeries: Breast, Orthopedic Respiratory History of Respiratory Disorde: No Currently Using CPAP: No Currently Using BIPAP: No Cardiovascular History of Cardiac Disorders: No Neurological History of Neurological Disord: No Reproductive System Hx Reproductive Disorders: Yes (CERVICAL DYSPLASIA) Sexually Transmitted Disease: No HIV/AIDS: No Female Reproductive Disorders: Denies Genitourinary History of Genitourinary Disor: No Gastrointestinal History of Gastrointestinal Di: No Musculoskeletal History of Musculoskeletal Dis: Yes (RIGHT HAND/WRIST SURGERY, LEFT KNEE SURGERY) Endocrine History of Endocrine Disorders: Yes (GESTATIONAL DIABETES) HEENT History of HEENT Disorders: No Cancer History of Cancer: No Psychosocial History of Psychiatric Problem: No Integumentary History of Skin or Integumenta: No Blood Transfusions History of Blood Disorders: No Family Medical History Significant Family History: No Pertinent Family Hx Physical Exam Vital Signs Vital Signs - First Documented 01/04/18 15:27 Temp 98.1 Pulse 80 Resp 20 B/P (MAP) 167/117 (134) Pulse Ox 99 Capillary Refill : Less Than 3 Seconds General Appearance: mild distress HEENT: normal ENT inspection Neck: full range of motion Cardiovascular: normal peripheral pulses, regular rate, rhythm, no edema, no gallop, no JVD, no murmur Respiratory: chest non-tender, lungs clear, normal breath sounds, no respiratory distress, no accessory muscle use Comments There is a rubbery 8 mm nodule in the scalp at the distal occiput and just left of center. This is tender to palpation. And when the hair is it is reddish and scaly. There are multiple tiny BB sized posterior cervical lymph nodes greater on the left but also on the right of midline. Progress/Results/Core Measures Results/Orders Vital Signs/I&O Vital Sign - Last 12Hours 01/04/18 15:27 Temp 98.1 Pulse 80 Resp 20 B/P (MAP) 167/117 (134) Pulse Ox 99 Blood Pressure Mean: 134 Departure Impression Impression: Primary Impression: inflamed pilar cyst Disposition: 01 HOME, SELF-CARE Condition: Stable/Unchanged Departure-Patient Inst. Decision time for Depature: 15:41 Referrals: PATIENCE JOHNSTON MD (PCP/Family) Primary Care Physician Add. Discharge Instructions: All discharge instructions reviewed with patient and/or family. Voiced understanding. Take antibiotics as directed. Schedule appointment to see Dr. Johnston in about one week. Tell the office that you need to have a pilar cyst on your scalp removed JING SERNA MD Jan 04, 2018 15:42
[2018-01-04] MEDS ORDERED: CEPH-507 PO (15:44)
[2018-01-04 15:55] VITALS: BP 164/103
--- OUTSIDE RECORDS SUMMARY | 2018-01-05 09:50 | XMS REPORT | Continuity of Care Document ---
Author Author [facility] Organization [facility] Address Unknown Phone Unavailable Allergies Active Description Code Type Severity Reaction Onset Reported/Identified Relationship to Patient Clinical Status Yes codeine [id number] Drug Allergy Unknown N/A 07/01/2008 Yes Penicillins [id number] Drug Allergy Unknown N/A 07/01/2008 Yes No Known Drug Allergies [id number] Drug Allergy Unknown N/A 12/08/2016 Yes latex [id number] Drug Allergy Unknown N/A 05/27/2017 Medications There is no data. Problems Date Dx Coded Attending Type Code [...] HARRISON DOA K Ot R11.0 NAUSEA 02/02/2016 CHRISTY BOWENS MIRIAN K Ot F17.210 02/02/2016 CHRISTY BOWENS MIRIAN K Ot R10.84 02/02/2016 PEE HARRISON DOA Rodger Ot R11.0 07/16/2016 INDIRA SIMON, Tonya TERESA Ot Z47.89 ENCOUNTER FOR OTHER ORTHOPEDIC AFTERCARE 07/16/2016 INDIRA SIMON, Tonya TERESA Ot Z47.89 ENCOUNTER FOR OTHER ORTHOPEDIC AFTERCARE 07/16/2016 INDIRA SIMON, Tonya TERESA Ot Z47.89 ENCOUNTER FOR OTHER ORTHOPEDIC AFTERCARE 07/19/2016 INDIRA SIMON, Tonya TERESA Ot Z47.89 ENCOUNTER FOR OTHER ORTHOPEDIC AFTERCARE 07/26/2016 INDIRA SIMON, Tonya TERESA Ot Z47.89 ENCOUNTER FOR OTHER ORTHOPEDIC AFTERCARE 08/07/2016 INDIRA SIMON, Tonya TERESA Ot Z47.89 ENCOUNTER FOR OTHER ORTHOPEDIC AFTERCARE 11/13/2016 PATIENCE JOHNSTON MD, Ot Z36 ENCOUNTER FOR SCREENING OF MOT 11/13/2016 PATIENCE JOHNSTON MD, Ot Z3A.10 10 WEEKS GESTATION OF 11/28/2016 PATIENCE JOHNSTON MD Ot Z36 ENCOUNTER FOR SCREENING OF MOT 11/28/2016 PATIENCE JOHNSTON MD, Ot Z3A.10 10 WEEKS GESTATION OF 12/08/2016 DWAYNE DEL ROSARIO MD Ot O20.0 THREATENED 12/08/2016 DWAYNE DEL ROSARIO MD Ot O26.851 SPOTTING COMPLICATING , FIRST T 12/08/2016 DWAYNE DEL ROSARIO MD Ot O26.891 OTH RELATED CONDITIONS, FIRST 12/08/2016 DWAYNE DEL ROSARIO MD Ot Z3A.13 13 WEEKS GESTATION OF 12/09/2016 DWAYNE DEL ROSARIO MD Ot O20.0 THREATENED 12/09/2016 DWAYNE DEL ROSARIO MD Ot O26.851 SPOTTING COMPLICATING , FIRST T 12/09/2016 DWAYNE DEL ROSARIO MD Ot O26.891 OTH RELATED CONDITIONS, FIRST 12/09/2016 DWAYNE DEL ROSARIO MD Ot Z3A.13 13 WEEKS GESTATION OF 12/12/2016 PATIENCE JOHNSTON MD Ot Z36 ENCOUNTER FOR SCREENING OF MOT 12/12/2016 PATIENCE JOHNSTON MD, Ot Z3A.10 10 WEEKS GESTATION OF 12/12/2016 MIRIAN HARRISON DO Ot K52.9 NONINFECTIVE GASTROENTERITIS AND COLITIS 12/12/2016 MIRIAN HARRISON DO Ot O99.611 DISEASES OF THE DGSTV SYS COMP 12/12/2016 MIRIAN HARRISON DO Ot R11.2 NAUSEA WITH VOMITING, UNSPECIFIED 12/12/2016 MIRIAN HARRISON DO Ot Z3A.13 13 WEEKS GESTATION OF 12/12/2016 MIRIAN HARRISON DO Ot Z87.891 PERSONAL HISTORY OF NICOTINE DEPENDENCE 02/08/2017 JAMES VALENTIN APRN Ot J06.9 ACUTE UPPER RESPIRATORY INFECTION, UNSPE 02/08/2017 JAMES VALENTIN APRN Ot O99.512 DISEASES OF THE RESP SYS COMP , 02/08/2017 JAMES VALENTIN APRN Ot R05 COUGH 02/08/2017 JAMES VALENTIN APRN Ot Z3A.23 23 WEEKS GESTATION OF 02/10/2017 JAMES VALENTIN APRN Ot J06.9 ACUTE UPPER RESPIRATORY INFECTION, UNSPE 02/10/2017 JAMES VALENTIN APRN Ot O99.512 DISEASES OF THE RESP SYS COMP , 02/10/2017 JAMES VALENTIN APRN Ot R05 COUGH 02/10/2017 JAMES VALENTIN APRN Ot Z3A.23 23 WEEKS GESTATION OF 02/14/2017 JAMES VALENTIN APRN Ot J06.9 ACUTE UPPER RESPIRATORY INFECTION, UNSPE 02/14/2017 JAEMS VALENTIN APRN Ot O99.512 DISEASES OF THE RESP SYS COMP , 02/14/2017 JAMES VALENTIN APRN Ot R05 COUGH 02/14/2017 JAMES VALENTIN APRN Ot Z3A.23 23 WEEKS GESTATION OF 03/18/2017 PATIENCE JOHNSTON MD Ot Z34.82 ENCOUNTER FOR SUPRVSN OF NORMAL PREGNANC 03/18/2017 PATIENCE JOHNSTON MD Ot Z36 ENCOUNTER FOR SCREENING OF MOT 04/28/2017 PATIENCE JOHNSTON MD Ot Z36 ENCOUNTER FOR SCREENING OF MOT 04/28/2017 PATIENCE JOHNSTON MD Ot Z3A.10 10 WEEKS GESTATION OF 04/28/2017 PATIENCE JOHNSTON MD Ot Z34.82 ENCOUNTER FOR SUPRVSN OF NORMAL PREGNANC 04/28/2017 PATIENCE JOHNSTON MD Ot Z36 ENCOUNTER FOR SCREENING OF MOT 04/30/2017 PATIENCE JOHNSTON MD Ot O24.419 GESTATIONAL DIABETES MELLITUS IN PREGNAN 04/30/2017 PATIENCE JOHNSTON MD, Ot Z3A.34 34 WEEKS GESTATION OF 05/05/2017 PATIENCE JOHNSTON MD, Ot O24.419 GESTATIONAL DIABETES MELLITUS IN PREGNAN 05/05/2017 PATIENCE JOHNSTON MD, Ot Z3A.34 34 WEEKS GESTATION OF 05/12/2017 PATIENCE JOHNSTON MD, Ot O24.419 GESTATIONAL DIABETES MELLITUS IN PREGNAN 05/12/2017 PATIENCE JOHNSTON MD, Ot Z3A.34 34 WEEKS GESTATION OF 05/20/2017 PATIENCE JOHNSTON MD, Ot O24.419 GESTATIONAL DIABETES MELLITUS IN PREGNAN 05/20/2017 PATIENCE JOHNSTON MD, Ot Z3A.34 34 WEEKS GESTATION OF 05/29/2017 PATIENCE JOHNSTON MD, Ot D62 ACUTE POSTHEMORRHAGIC ANEMIA 05/29/2017 PATIENCE JOHNSTON MD, Ot O13.4 GESTATNL HTN WITHOUT SIGNIFICANT PROTEIN 05/29/2017 PATIENCE JOHNSTON MD, Ot O24.429 GESTATIONAL DIABETES MELLITUS IN CHILDBI 05/29/2017 PATIENCE JOHNSTON MD, Ot O70.0 FIRST DEGREE PERINEAL LACERATION DURING 05/29/2017 PATIENCE JOHNSTON MD, Ot O90.81 ANEMIA OF THE PUERPERIUM 05/29/2017 PATIENCE JOHNSTON MD, Ot O99.824 STREPTOCOCCUS B CARRIER STATE COMPLICATI 05/29/2017 PATIENCE JOHNSTON MD, Ot Z23 ENCOUNTER FOR IMMUNIZATION 05/29/2017 PATIENCE JOHNSTON MD, Ot Z37.0 SINGLE LIVE 05/29/2017 PATIENCE JOHNSTON MD, Ot Z3A.38 38 WEEKS GESTATION OF 06/20/2017 PTAIENCE JOHNSTON MD, Ot O24.419 GESTATIONAL DIABETES MELLITUS IN PREGNAN 06/20/2017 PATIENCE JOHNSTON MD, Ot Z3A.34 34 WEEKS GESTATION OF 06/21/2017 PATIENCE JOHNSTON MD, Ot M25.571 PAIN IN RIGHT ANKLE AND JOINTS OF RIGHT 07/26/2017 PATIENCE JOHNSTON MD, Ot O24.419 GESTATIONAL DIABETES MELLITUS IN PREGNAN 07/26/2017 PATIENCE JOHNSTON MD, Ot Z3A.34 34 WEEKS GESTATION OF 07/31/2017 PATIENCE JOHNSTON MD, Ot O24.419 GESTATIONAL DIABETES MELLITUS IN PREGNAN 07/31/2017 PATIENCE JOHNSTON MD, Ot Z3A.34 34 WEEKS GESTATION OF 08/01/2017 PATIENCE JOHNSTON MD, Ot O24.419 GESTATIONAL DIABETES MELLITUS IN PREGNAN 08/01/2017 PATIENCE JOHNSTON MD Ot Z3A.34 34 WEEKS GESTATION OF Procedures Code Description Performed By Performed On 0X3C4XI INTRODUCE OF OTH THERAP SUBST INTO FEM R 05/26/2017 [id number] REPAIR PERINEUM SKIN, EXTERNAL APPROACH 05/27/2017 [id number] DELIVERY OF PRODUCTS OF CONCEPTION, EXTE 05/27/2017 Results Test Result Range Complete urinalysis with reflex to culture - 12/08/16 20:56 Urine color determination YELLOW NRG Urine clarity determination CLEAR NRG Urine pH measurement by test strip 7 5-9 Specific gravity of urine by test strip 1.015 1.016- 1.022 Urine protein assay by test strip, semi-quantitative NEGATIVE NEGATIVE Urine glucose detection by automated test strip NEGATIVE NEGATIVE Erythrocytes detection in urine sediment by light microscopy NEGATIVE NEGATIVE Urine ketones detection by automated test strip NEGATIVE NEGATIVE Urine nitrite detection by test strip NEGATIVE NEGATIVE Urine total bilirubin detection by test strip NEGATIVE NEGATIVE Urine urobilinogen measurement by automated test strip (mass/volume) NORMAL NORMAL Urine leukocyte esterase detection by dipstick NEGATIVE NEGATIVE Automated urine sediment erythrocyte count by microscopy (number/high power field) RARE NRG Automated urine sediment leukocyte count by microscopy (number/high power field ) [HPF] NRG Bacteria detection in urine sediment by light microscopy NEGATIVE NRG Squamous epithelial cells detection in urine sediment by light microscopy >50 NRG Crystals detection in urine sediment by light microscopy NONE NRG Casts detection in urine sediment by light microscopy NONE NRG Mucus detection in urine sediment by light microscopy NEGATIVE NRG Complete urinalysis with reflex to culture NO NRG Renal epithelial cells detection in urine sediment by light microscopy NONE NRG Urine protein/creatinine mass ratio - 05/20/17 11:45 Urine protein measurement (mass/volume) < mg/dL 6-12 Urine creatinine measurement (mass/volume) 10 mg/dL 30- 125 Urine protein/creatinine mass ratio TNP NRG Complete urinalysis with reflex to culture - 05/26/17 20:10 Urine color determination YELLOW NRG Urine clarity determination VERY CLOUDY NRG Urine pH measurement by test strip 6.5 5-9 Specific gravity of urine by test strip 1.020 1.016- 1.022 Urine protein assay by test strip, semi-quantitative 1+ NEGATIVE Urine glucose detection by automated test strip NEGATIVE NEGATIVE Erythrocytes detection in urine sediment by light microscopy 5+ NEGATIVE Urine ketones detection by automated test strip NEGATIVE NEGATIVE Urine nitrite detection by test strip NEGATIVE NEGATIVE Urine total bilirubin detection by test strip NEGATIVE NEGATIVE Urine urobilinogen measurement by automated test strip (mass/volume) 1 mg/dL NORMAL Urine leukocyte esterase detection by dipstick 3+ NEGATIVE Automated urine sediment erythrocyte count by microscopy (number/high power field) [HPF] NRG Automated urine sediment leukocyte count by microscopy (number/high power field ) [HPF] NRG Bacteria detection in urine sediment by light microscopy MODERATE NRG Squamous epithelial cells detection in urine sediment by light microscopy >50 NRG Crystals detection in urine sediment by light microscopy NONE NRG Casts detection in urine sediment by light microscopy NONE NRG Mucus detection in urine sediment by light microscopy NEGATIVE NRG Complete urinalysis with reflex to culture YES NRG Bacterial urine culture - 05/26/17 20:10 URINE CULTURE RESULTS <10,000/ML NRG Complete blood count (CBC) with automated white blood cell (WBC) differential - 05/26/17 20:25 Blood leukocytes automated count (number/volume) 11.9 10*3/uL 4.3-11.0 Blood erythrocytes automated count (number/volume) 3.58 10*6/uL 4.35-5.85 Venous blood hemoglobin measurement (mass/volume) 11.6 g/dL 11.5-16.0 Blood hematocrit (volume fraction) 34 % 35-52 Automated erythrocyte mean corpuscular volume 96 [foz_us] 80-99 Automated erythrocyte mean corpuscular hemoglobin (mass per erythrocyte) 32 pg 25-34 Automated erythrocyte mean corpuscular hemoglobin concentration measurement ( mass/volume) 34 g/dL 32-36 Automated erythrocyte distribution width ratio 13.9 % 10.0-14.5 Automated blood platelet count (count/volume) 298 10*3/uL 130-400 Automated blood platelet mean volume measurement 10.5 [foz_us] 7.4-10.4 Automated blood neutrophils/100 leukocytes 64 % 42-75 Automated blood lymphocytes/100 leukocytes 27 % 12-44 Blood monocytes/100 leukocytes 7 % 0-12 Automated blood eosinophils/100 leukocytes 2 % 0-10 Automated blood basophils/100 leukocytes 0 % 0-10 Blood neutrophils automated count (number/volume) 7.6 10*3 1.8-7.8 Blood lymphocytes automated count (number/volume) 3.2 10*3 1.0-4.0 Blood monocytes automated count (number/volume) 0.8 10*3 0.0-1.0 Automated eosinophil count 0.2 10*3/uL 0.0-0.3 Automated blood basophil count (count/volume) 0.0 10*3/uL 0.0-0.1 Serum or plasma glucose measurement (mass/volume) - 05/26/17 20:25 Serum or plasma glucose measurement (mass/volume) 156 mg/dL 70-105 Blood type T Indirect antibody screen panel - 05/26/17 20:25 ABO+Rh group AP NRG Transfusion band number [id number] NRG Blood group antibody screen NEGATIVE NRG Complete blood count (CBC) with automated white blood cell (WBC) differential - 05/28/17 05:41 Blood leukocytes automated count (number/volume) 16.3 10*3/uL 4.3-11.0 Blood erythrocytes automated count (number/volume) 2.88 10*6/uL 4.35-5.85 Venous blood hemoglobin measurement (mass/volume) 9.1 g/dL 11.5-16.0 Blood hematocrit (volume fraction) 28 % 35-52 Automated erythrocyte mean corpuscular volume 97 [foz_us] 80-99 Automated erythrocyte mean corpuscular hemoglobin (mass per erythrocyte) 32 pg 25-34 Automated erythrocyte mean corpuscular hemoglobin concentration measurement ( mass/volume) 33 g/dL 32-36 Automated erythrocyte distribution width ratio 13.7 % 10.0-14.5 Automated blood platelet count (count/volume) 255 10*3/uL 130-400 Automated blood platelet mean volume measurement 10.0 [foz_us] 7.4-10.4 Automated blood neutrophils/100 leukocytes 70 % 42-75 Automated blood lymphocytes/100 leukocytes 23 % 12-44 Blood monocytes/100 leukocytes 6 % 0-12 Automated blood eosinophils/100 leukocytes 1 % 0-10 Automated blood basophils/100 leukocytes 0 % 0-10 Blood neutrophils automated count (number/volume) 11.4 10*3 1.8-7.8 Blood lymphocytes automated count (number/volume) 3.7 10*3 1.0-4.0 Blood monocytes automated count (number/volume) 1.0 10*3 0.0-1.0 Automated eosinophil count 0.2 10*3/uL 0.0-0.3 Automated blood basophil count (count/volume) 0.0 10*3/uL 0.0-0.1 Encounters ACCT No. Visit Date/Time Discharge Status Pt. Type Provider Facility Loc./Unit Complaint [id number] 07/27/2017 00:14:00 07/27/2017 23:59:59 CLS Preadmit PATIENCE JOHNSTON MD [facility] GESTATIONAL DIABETES [id number] 04/28/2017 09:39:00 07/26/2017 00:01:00 DIS Outpatient PATIENCE JOHNSTON MD [facility] GESTATIONAL DIABETES [id number] 06/02/2017 10:05:00 06/02/2017 23:59:59 CLS Outpatient PATIENCE JOHNSTON MD [facility] RAD ANKLE LATERAL FOOT PAIN [id number] 05/26/2017 20:00:00 05/29/2017 09:02:00 DIS Inpatient PATIENCE JOHNSTON MD [facility] LDRP INDUCTION [id number] 02/08/2017 21:44:00 02/08/2017 22:46:00 DIS Emergency JAMES VALENTIN INTERNET [employer] [facility] ER CHEST CONGESTION [id number] 01/27/2017 11:06:00 01/27/2017 23:59:59 CLS Outpatient PATIENCE JOHNSTON MD [facility] RAD SURVEY [id number] 12/12/2016 01:42:00 12/12/2016 02:58:00 DIS Emergency CHRISTY DOMIRIAN K [facility] ER N/V/D,13 1/2 WKS PREG [id number] 12/08/2016 20:33:00 12/08/2016 22:10:00 DIS Emergency DWAYNE DEL ROSARIO MD [facility] ER SPOTTING, CRAMPING, APPROX 17 WKS PREG [id number] 11/12/2016 11:35:00 11/12/2016 23:59:59 CLS Outpatient PATIENCE JOHNSTON MD [facility] RAD DATE [id number] 07/30/2016 09:44:00 08/07/2016 11:57:00 DIS Outpatient Tonya JACOBSON MD [facility] REHAB R WRIST TFCC REPAIR, DEQUERVAINS RELEASE [id number] 07/25/2016 09:47:00 07/26/2016 17:00:00 DIS Outpatient INDIRA SIMON, Tonya TERESA [facility] REHAB R WRIST TFCC REPAIR, DEQUERVAINS RELEASE [id number] 02/01/2016 22:49:00 02/02/2016 03:29:00 DIS Emergency MIRIAN HARRISON DO [facility] ER BACK AND SIDE PAIN [id number] 12/08/2016 20:48:00 Document Registration [id number] 05/28/2012 12:47:00 Document Registration
== END 2018-01-04 15:55 | disposition home or self-care (01) ==
LOC: EDUNIT# 15:11 → ER 15:12
DX: L72.11 Pilar cyst (principal); F17.210 Nicotine dependence, cigarettes, uncomplicated; Z91.040 Latex allergy status
CPT/HCPCS: 99282

== ENCOUNTER 2018-04-07 05:35 | Outpatient (CLI) | payer MEDICAID ==
[~2018-04-07] VITALS: Ht 154.9 cm; Wt 66.5 kg
[~2018-04-07 05:35] MED LIST changes: +CEPH-507 PO
[2018-04-07] MEDS ORDERED: ALPR1TAB2 PO (09:48)
[2018-04-07] MEDS ORDERED: LISI-552 PO (09:48)
[2018-04-07] MEDS ORDERED: METO50TA15 PO (09:48)
[2018-04-10] MEDS ORDERED: TRAM50TA2 PO (08:58)
== END 2018-04-07 09:55 ==
LOC: PREOP 05:35
PROVIDERS: ATTEND Surgery
DX: Z01.818 Encounter for other preprocedural examination (principal); L72.3 Sebaceous cyst

== ENCOUNTER 2018-04-10 06:59 | Day surgery (SDC) | payer MEDICAID ==
[~2018-04-10] VITALS: Ht 154.9 cm; Wt 66.5 kg
[~2018-04-10 06:59] MED LIST changes: +ALPR1TAB2 PO; +LISI-552 PO; +METO50TA15 PO
[2018-04-10 07:00] VITALS: BP 176/111
--- OUTSIDE RECORDS SUMMARY | 2018-04-10 07:04 | XMS REPORT | Continuity of Care Document ---
Author Author [facility] Organization [facility] Address Unknown Phone Unavailable Allergies Active Description Code Type Severity Reaction Onset Reported/Identified Relationship to Patient Clinical Status Yes codeine [id number] Drug Allergy Unknown N/A 07/01/2008 Yes Penicillins [id number] Drug Allergy Unknown N/A 07/01/2008 Yes No Known Drug Allergies [id number] Drug Allergy Unknown N/A 12/08/2016 Yes latex [id number] Drug Allergy Unknown N/A 05/27/2017 Medications There [...] Ot F17.210 NICOTINE DEPENDENCE, CIGARETTES, UNCOMPL 02/02/2016 PEE HARRISON DOA Rodger Ot R10.84 GENERALIZED ABDOMINAL PAIN 02/02/2016 PEE [...] J06.9 ACUTE UPPER RESPIRATORY INFECTION, UNSPE 02/14/2017 JAMES VALENTIN APRN Ot O99.512 DISEASES OF [...] Ot Z3A.38 38 WEEKS GESTATION OF 06/20/2017 PATIENCE JOHNSTON MD, Ot O24.419 GESTATIONAL DIABETES [...] MD Ot Z3A.34 34 WEEKS GESTATION OF 01/06/2018 JING SERNA MD Ot F17.210 NICOTINE DEPENDENCE, CIGARETTES, UNCOMPL 01/06/2018 JING SERNA MD Ot L72.11 PILAR CYST 01/06/2018 JING SERNA MD Ot R22.0 LOCALIZED SWELLING, MASS AND LUMP, HEAD 01/06/2018 JING SERNA MD Ot Z91.040 LATEX ALLERGY STATUS Procedures Code Description Performed By Performed On 2C0C1NQ INTRODUCE OF OTH THERAP SUBST INTO FEM R 05/26/2017 [id number] REPAIR PERINEUM SKIN, EXTERNAL APPROACH 05/27/2017 [id number] DELIVERY OF PRODUCTS OF CONCEPTION, EXTE 05/27/2017 [...] ABO+Rh group AP NRG Transfusion band number [id number] NR Blood group antibody screen NEGATIVE NR Complete blood count (CBC) with automated white [...] Status Pt. Type Provider Facility Loc./Unit Complaint [id number] 01/04/2018 15:12:00 01/04/2018 15:55:00 DIS Outpatient JING SERNA MD [facility] ER KNOTS IN BACK ON NECK [id number] 07/27/2017 00:14:00 07/27/2017 23:59:59 CLS Preadmit PATIENCE JOHNSTON MD [facility] GESTATIONAL DIABETES [id number] 04/28/2017 09:39:00 07/26/2017 00:01:00 DIS Outpatient PATIENCE JOHNSTON MD [facility] GESTATIONAL DIABETES [id number] 06/02/2017 10:05:00 06/02/2017 23:59:59 CLS Outpatient PATIENCE JOHNSTON MD [facility] RAD ANKLE LATERAL FOOT PAIN [id number] 05/26/2017 20:00:00 05/29/2017 09:02:00 DIS Inpatient PATIENCE JOHNSTON MD [facility] LDRP INDUCTION [id number] 02/08/2017 21:44:00 02/08/2017 22:46:00 DIS Emergency JAMES VALENTIN APRN [facility] ER CHEST CONGESTION [id number] 01/27/2017 11:06:00 01/27/2017 23:59:59 CLS Outpatient PATIENCE JOHNSTON MD [facility] RAD SURVEY [id number] 12/12/2016 01:42:00 12/12/2016 02:58:00 DIS Emergency MIRIAN HARRISON DO [facility] ER N/V/D,13 1/2 WKS PREG [id number] 12/08/2016 20:33:00 12/08/2016 22:10:00 DIS Emergency CARIN SIMON, DWAYNE Nick [facility] ER SPOTTING, CRAMPING, APPROX 17 WKS PREG [id number] 11/12/2016 11:35:00 11/12/2016 23:59:59 CLS Outpatient PRESTON SIMON, PATIENCE Tran [facility] RAD DATE [id number] 07/30/2016 09:44:00 08/07/2016 11:57:00 DIS Outpatient Tonya JACOBSON MD [facility] REHAB R WRIST TFCC REPAIR, DEQUERVAINS RELEASE [id number] 07/25/2016 09:47:00 07/26/2016 17:00:00 DIS Outpatient Tonya JACOBSON MD [facility] REHAB R WRIST TFCC REPAIR, DEQUERVAINS RELEASE [id number] 02/01/2016 22:49:00 02/02/2016 03:29:00 DIS Emergency CHRISTY BOWENS MIRIAN Soares [facility] ER BACK AND SIDE PAIN [id number] 04/10/2018 08:00:00 PEN Lisa ARANDA MD, CARMEN Bacon [facility] SDC SEBACEOUS CYST [id number] 12/08/2016 20:48:00 Document Registration [id number] 05/28/2012 12:47:00 Document Registration
[2018-04-10] MEDS ORDERED: LACTATED RINGERS 1,000 ML IV PRN (07:08)
[2018-04-10] MEDS ORDERED: ceFAZolin INJECTION 1,000 MG in NS (IVPB) 50 ML IV ONE (07:15)
[2018-04-10] MEDS ORDERED: MIDAZOLAM 2 MG/2 ML (VERSED) VIAL ONE ×2 (07:18→07:47)
[2018-04-10] MEDS ORDERED: ROCURONIUM 10 MG/ML 5 ML SYRINGE IV ONE (07:18)
[2018-04-10] MEDS ORDERED: proPOfol 200 MG/20 ML (DIPRIVAN) VIAL IV ONE (07:18)
[2018-04-10] MEDS ORDERED: fentaNYL INJECTION 100 MCG/2 ML AMP ONE (07:18)
[2018-04-10] MEDS ORDERED: ONDANSETRON 4 MG/2 ML (SDV) Z0FRAN ONE ×2 (07:18→08:33)
[2018-04-10] MEDS ORDERED: LIDOCAINE PF 2% 5 ML (XYLOCAINE) VIAL ONE (07:18)
[2018-04-10] MEDS ORDERED: SEVOFLURANE (ULTANE) 15 ML INHAL SOLN ONE (07:18)
[2018-04-10] MEDS ORDERED: MIDAZOLAM 2 MG/2 ML (VERSED) VIAL IV ONE (07:30)
[2018-04-10] MEDS ORDERED: BUP/EPI 0.5% 1:200,000 (SENSORCAINE) 30 ML VIAL ONE (07:39)
[2018-04-10] MEDS ORDERED: ceFAZolin 1,000 MG (ANCEF) VIAL ONE (07:47)
[2018-04-10] MEDS ORDERED: NS (IVPB) 50 ML ONE (07:47)
--- NOTE | 2018-04-10 08:09 | Progress Note-Pre Operative ---
Pre-Operative Progress Note H&P Reviewed The H&P was reviewed, patient examined and no changes noted. Date Seen by Provider: Mar 30, 2018 Time Seen by Provider: 16:00 Date H&P Reviewed: Apr 10, 2018 Time H&P Reviewed: 08:09 Pre-Operative Diagnosis: Sebaceous cyst-Left scapular region CARMEN ARANDA MD Apr 10, 2018 8:09 am
[2018-04-10] MEDS ORDERED: NEOSTIGMINE 1 MG/ML 5 ML SYRINGE ONE (08:33)
[2018-04-10] MEDS ORDERED: DEXAMETHASONE 10 MG/ML (DECADRON) 1 ML VIAL ONE (08:33)
[2018-04-10] MEDS ORDERED: GLYCOPYRROLATE 0.2 MG/ML (ROBINUL) 2 ML VIAL ONE (08:33)
--- NOTE | 2018-04-10 08:57 | Operative Report ---
Operative Report Date of Procedure/Surgery Apr 10, 2018 Surgeon (s) CARMEN ARANDA MD Community Development Worker (s): n/a Post-Operative Diagnosis Same Procedure Performed Excision Description of Procedure Anesthesia Type: General Estimated blood loss (mL): Minimal Specimen(s) collected/removed Sebaceous cyst Description of the Procedure Indication for the procedure: This lady presented with a 5 cm sebaceous cyst over the left scapular region. She was offered excision under general anesthetic. Informed consent was obtained after reviewing the operative details and complications of postoperative hematoma, wound infection and recurrence of the cyst. Description of the procedure: She was initially placed supine on the gurney and general anesthesia induced. A gram of Ancef was administered intravenously as prophylaxis against wound infection. Subsequently, she was placed in right lateral decubitus position on the operative table and her pressure areas were padded and protected. After adequate antiseptic preparation,, pre-emptive analgesia was established using 0.5 percent Marcaine with epinephrine. An elliptical incision about 6 cm in length was made and the cyst excised intact. Hemostasis was achieved using cautery and the incision closed using 3-0 Vicryl for the dermal layer and 4-0 Vicryl for skin, in a subcuticular fashion. Steri-Strips and a nonadherent dressing were applied He tolerated the procedure well, was turned supine before being extubated and taken to the recovery room in a stable condition. Findings of the Procedure See op report Allergies and Home Medications Allergies Coded Allergies: latex (Verified Allergy, Severe, SEVERE SWELLING, 04/07/18) Home Medications Alprazolam 1 Mg Tablet, 1 MG PO BID PRN for ANXIETY, (Reported) Lisinopril 20 Mg Tablet, 20 MG PO DAILY, (Reported) Metoprolol Tartrate 50 Mg Tablet, 50 MG PO DAILY, (Reported) Patient Home Medication List Home Medication List Reviewed: Yes CARMEN ARANDA MD Apr 10, 2018 8:57 am
[2018-04-10] MEDS ORDERED: TRAM50TA2 PO (08:58)
--- NOTE | 2018-04-10 08:59 | Discharge Inst-Simple/Standard ---
Discharge Inst-Standard Discharge Medications New, Converted or Re-Newed RX: RX on Chart Patient Instructions/Follow Up Plan of Care/Instructions/FU: Dressing may come off in 48 hours. Steri-Strips to stay; follow-up if needed. No sutures to be removed. Activity as Tolerated: Yes Discharge Diet: No Restrictions CARMEN ARANDA MD Apr 10, 2018 8:59 am
[2018-04-10] MEDS ORDERED: morphine INJ 10 MG/ML 1ML (SYR OR VIAL) IVP PRN (09:30)
[2018-04-10] MEDS ORDERED: ONDANSETRON 4 MG/2 ML (SDV) Z0FRAN IVP PRN (09:30)
[2018-04-10] MEDS ORDERED: fentaNYL INJECTION 100 MCG/2 ML AMP IVP PRN (09:30)
[2018-04-10 09:50] VITALS: BP 169/96
[2018-04-10 10:20] VITALS: BP 152/94
[2018-04-10 10:55] VITALS: BP 168/104
--- NOTE | 2018-04-10 11:03 | Anesthesia-General Post-Op ---
General Patient Condition Mental Status/LOC: Same as Preop Cardiovascular: Satisfactory Nausea/Vomiting: Absent Respiratory: Satisfactory Pain: Controlled Complications: Absent Post Op Complications Complications None Follow Up Care/Instructions Patient Instructions None needed. Anesthesia/Patient Condition Patient Condition Patient is doing well, no complaints, stable vital signs, no apparent adverse anesthesia problems. RADHA HENNESSY DO Apr 10, 2018 11:03
== END 2018-04-10 11:00 | disposition home or self-care (01) ==
LOC: SDC 06:59
PROVIDERS: ATTEND Surgery
DX: L72.0 Epidermal cyst (principal); I10 Essential (primary) hypertension; F17.210 Nicotine dependence, cigarettes, uncomplicated; Z79.899 Other long term (current) drug therapy
CPT/HCPCS: 84703; 87081; 88304

== ENCOUNTER 2018-06-27 21:26 | Emergency (ER) | payer MEDICAID ==
[~2018-06-27] VITALS: Ht 154.9 cm; Wt 66.2 kg
[~2018-06-27 21:26] MED LIST changes: +TRAM50TA2 PO
--- OUTSIDE RECORDS SUMMARY | 2018-06-27 21:33 | XMS REPORT | Continuity of Care Document ---
Author Author [facility] Organization [facility] Address Unknown Phone Unavailable Allergies Active Description Code Type Severity Reaction Onset Reported/Identified Relationship to Patient Clinical Status Yes codeine [id number] Drug Allergy Unknown N/A 07/01/2008 Yes Penicillins [id number] Drug Allergy Unknown N/A 07/01/2008 Yes No Known Drug Allergies [id number] Drug Allergy Unknown N/A 12/08/2016 Yes latex [id number] Drug Allergy Unknown N/A 05/27/2017 Yes latex [id number] Drug Allergy Severe SEVERE SWELLING 04/07/2018 Medications There is no data. Problems Date [...] DO Ot R10.84 GENERALIZED ABDOMINAL PAIN 02/02/2016 MIRIAN HARRISON DO Ot R11.0 NAUSEA 02/02/2016 PEE HARRISON DOA Rodger Ot F17.210 02/02/2016 MIRIAN HARRISON DO Ot R10.84 02/02/2016 MIRAIN HARRISON DO Ot R11.0 07/16/2016 INDIRA SIMON, Tonya TERESA Ot Z47.89 ENCOUNTER FOR OTHER ORTHOPEDIC AFTERCARE 07/16/2016 Tonya JACOBSON MD Ot Z47.89 ENCOUNTER FOR OTHER ORTHOPEDIC AFTERCARE 07/16/2016 Tonya JACOBSON MD Ot Z47.89 ENCOUNTER FOR [...] RELATED CONDITIONS, FIRST 12/09/2016 DWAYNE DEL ROSARIO MD, Ot Z3A.13 13 WEEKS GESTATION OF 12/12/2016 [...] WEEKS GESTATION OF 12/12/2016 MIRIAN HARRISON DO K Ot Z87.891 PERSONAL HISTORY OF NICOTINE DEPENDENCE [...] 23 WEEKS GESTATION OF 03/18/2017 PATIENCE JOHNSTON MD, Ot Z34.82 ENCOUNTER FOR SUPRVSN OF NORMAL PREGNANC 03/18/2017 PATIENCE JOHNSTON MD Ot Z36 ENCOUNTER FOR SCREENING OF MOT 04/28/2017 PATIENCE JOHNSTON MD, Ot Z36 ENCOUNTER FOR SCREENING OF MOT 04/28/2017 PATIENCE JOHNSTON MD, Ot Z3A.10 10 WEEKS GESTATION OF 04/28/2017 PATIENCE JOHNSTON MD, Ot Z34.82 ENCOUNTER FOR SUPRVSN OF NORMAL PREGNANC 04/28/2017 PATIENCE JOHNSTON MD, Ot Z36 ENCOUNTER FOR SCREENING OF MOT 04/30/2017 PATIENCE JOHNSTON MD, Ot O24.419 GESTATIONAL DIABETES [...] 34 WEEKS GESTATION OF 08/01/2017 PATIENCE JOHNSTON MD Ot O24.419 GESTATIONAL DIABETES MELLITUS IN PREGNAN 08/01/2017 PATIENCE JOHNSTON MD, Ot Z3A.34 34 WEEKS GESTATION OF 01/06/2018 JING SERNA MD Ot F17.210 NICOTINE DEPENDENCE, CIGARETTES, UNCOMPL 01/06/2018 JING SERNA MD Ot L72.11 PILAR CYST 01/06/2018 JING SERNA MD Ot R22.0 LOCALIZED SWELLING, MASS AND LUMP, HEAD 01/06/2018 JING SERNA MD Ot Z91.040 LATEX ALLERGY STATUS 04/07/2018 PATIENCE JOHNSTON MD Ot O24.419 GESTATIONAL DIABETES MELLITUS IN PREGNAN 04/07/2018 PATIENCE JOHNSTON MD, Ot Z3A.34 34 WEEKS GESTATION OF 04/08/2018 ROSI SIMON, CARMEN Bacon Ot L72.3 SEBACEOUS CYST 04/08/2018 CARMEN ARANDA MD Ot Z01.818 ENCOUNTER FOR OTHER PREPROCEDURAL EXAMIN 04/10/2018 CARMEN ARANDA MD Ot F17.210 NICOTINE DEPENDENCE, CIGARETTES, UNCOMPL 04/10/2018 CARMEN ARANDA MD Ot I10 ESSENTIAL (PRIMARY) HYPERTENSION 04/10/2018 CARMEN ARANDA MD Ot L72.0 EPIDERMAL CYST 04/10/2018 CARMEN ARANDA MD Ot Z79.899 OTHER SKILLED NURSING (CURRENT) DRUG THERAPY 04/13/2018 CARMEN ARANDA MD Ot L72.3 SEBACEOUS CYST 04/13/2018 CARMEN ARANDA MD Ot Z01.818 ENCOUNTER FOR OTHER PREPROCEDURAL EXAMIN Procedures Code Description Performed By Performed On [id number] INTRODUCE OF OTH THERAP SUBST INTO FEM R 05/26/2017 [id number] REPAIR PERINEUM SKIN, EXTERNAL APPROACH 05/27/2017 [id number] DELIVERY OF PRODUCTS OF CONCEPTION, EXTE 05/27/2017 [...] ABO+Rh group AP NRG Transfusion band number [id number] NRG Blood group antibody screen NEGATIVE NRG [...] blood basophil count (count/volume) 0.0 10*3/uL 0.0-0.1 Urine beta human chorionic gonadotropin (hCG) measurement - 04/10/18 07:00 Urine beta human chorionic gonadotropin (hCG) measurement NEGATIVE NEGATIVE Methicillin resistant Staphylococcus aureus (MRSA) screening culture - 07:00 Methicillin resistant Staphylococcus aureus (MRSA) screening culture NEG NRG Encounters ACCT No. Visit Date/Time Discharge Status Pt. Type Provider Facility Loc./Unit Complaint [id number] 04/10/2018 06:59:00 04/10/2018 11:00:00 DIS Outpatient ROSI SIMON, CARMEN Cason [facility] SDC SEBACEOUS CYST [id number] 04/07/2018 05:35:00 04/07/2018 09:55:00 DIS Outpatient ROSI SIMON, CARMEN Bacon [facility] PREOP SEBACEOUS CYST [id number] 01/04/2018 15:12:00 01/04/2018 15:55:00 DIS Outpatient KAREEM SIMON, JING Soares [facility] ER KNOTS IN BACK ON NECK [id number] 07/27/2017 00:14:00 07/27/2017 23:59:59 CLS Preadmit PATIENCE JOHNSTON MD [facility] GESTATIONAL DIABETES [id number] 04/28/2017 09:39:00 07/26/2017 00:01:00 DIS Outpatient PATIENCE JOHNSTON MD [facility] GESTATIONAL DIABETES [id number] 06/02/2017 10:05:00 06/02/2017 23:59:59 CLS Outpatient PATIENCE JOHNSTON MD [facility] RAD ANKLE LATERAL FOOT PAIN [id number] 05/26/2017 20:00:00 05/29/2017 09:02:00 DIS Inpatient PATIENCE JOHNSTON MD [facility] LDRP INDUCTION [id number] 02/08/2017 21:44:00 02/08/2017 22:46:00 DIS Emergency JAMES VALENTIN APRN [facility] ER CHEST CONGESTION [id number] 01/27/2017 11:06:00 01/27/2017 23:59:59 CLS Outpatient PATIENCE JOHNSTON MD [facility] RAD SURVEY [id number] 12/12/2016 01:42:00 12/12/2016 02:58:00 DIS Emergency MIRIAN HARRISON DO [facility] ER N/V/D,13 1/2 WKS PREG [id number] 12/08/2016 20:33:00 12/08/2016 22:10:00 DIS Emergency DWAYNE DEL ROSARIO MD [facility] ER SPOTTING, CRAMPING, APPROX 17 WKS PREG [id number] 11/12/2016 11:35:00 11/12/2016 23:59:59 CLS Outpatient PRESTON SIMON, PATIENCE Tran [facility] RAD DATE [id number] 07/30/2016 09:44:00 08/07/2016 11:57:00 DIS Outpatient Tonya JACOBSON MD [facility] REHAB R WRIST TFCC REPAIR, DEQUERVAINS RELEASE [id number] 07/25/2016 09:47:00 07/26/2016 17:00:00 DIS Outpatient Tonya JACOBSON MD [facility] REHAB R WRIST TFCC REPAIR, DEQUERVAINS RELEASE [id number] 02/01/2016 22:49:00 02/02/2016 03:29:00 DIS Emergency MIRIAN HARRISON DO [facility] ER BACK AND SIDE PAIN [id number] 12/08/2016 20:48:00 Document Registration [id number] 05/28/2012 12:47:00 Document Registration
[2018-06-27] MEDS ORDERED: LACTATED RINGERS 1,000 ML IV ONE (21:47)
[2018-06-27 22:02] LABS: BASOPHILS % (AUTO) 0 % (0-10); EOSINOPHILS # (AUTO) 0.1 10^3/uL (0.0-0.3); EOSINOPHILS % (AUTO) 1 % (0-10); HEMATOCRIT 41 % (35-52); HEMOGLOBIN 14.3 G/DL (11.5-16.0); LYMPHOCYTES # (AUTO) 1.6 X 10^3 (1.0-4.0); LYMPHOCYTES % (AUTO) 15 % (12-44); MEAN CORPUSCULAR HEMOGLOBIN 31 PG (25-34); MEAN CORPUSCULAR HGB CONC 35 G/DL (32-36); MEAN CORPUSCULAR VOLUME 90 FL (80-99); MEAN PLATELET VOLUME 9.7 FL (7.4-10.4); MONOCYTES # (AUTO) 0.5 X 10^3 (0.0-1.0); MONOCYTES % (AUTO) 5 % (0-12); NEUTROPHILS # (AUTO) 8.3 X 10^3 (1.8-7.8); NEUTROPHILS % (AUTO) 78 % (42-75); PLATELET COUNT 304 10^3/uL (130-400); RED BLOOD COUNT 4.57 10^6/uL (4.35-5.85); RED CELL DISTRIBUTION WIDTH 12.9 % (10.0-14.5); WHITE BLOOD COUNT 10.7 10^3/uL (4.3-11.0)
[2018-06-27] MEDS ORDERED: ONDANSETRON 4 MG/2 ML (SDV) Z0FRAN ONE (22:07)
[2018-06-27] MEDS ORDERED: KETOROLAC 30 MG/ML VIAL ONE (22:07)
--- NOTE | 2018-06-27 22:09 | ED Abdominal Pain ---
General Chief Complaint: Abdominal/GI Problems Stated Complaint: ABD PN,BACK PN Nursing Triage Note: BILATERAL ABDOMINAL PAIN WITH RADIATION TO BACK. VOMITING SINCE 1100 Sepsis Screen: No Definite Risk Source of Information: Patient History of Present Illness Date Seen by Provider: Jun 27, 2018 Time Seen by Provider: 21:50 Initial Comments PT ARRIVES VIA POV FROM HOME C/O DIFFUSE ABDOMINAL PAIN AND BACK PAIN SINCE SOMETIME THIS MORNING--DID NOT HAVE IT WHEN SHE WOKE UP PAIN IS CONSTANT NOTHING WORSENS OR IMPROVES PAIN PAIN IS WORSE ON LEFT THAN RIGHT + NAUSEA, VOMITED X 3 NO DIARRHEA/CONSTIPATION--HAD NORMAL BM TODAY NO FEVER NO URINARY SYMPTOMS NO HISTORY OF SIMILAR HAS NOT TAKEN ANYTHING FOR SYMPTOMS HAS CONTINUED TO EAT AND DRINK TODAY--LAST ATE AT 1730 HAS NOT TAKEN HER BLOOD PRESSURE MEDICATION OR ANXIETY MEDICATION TODAY LMP 06/19/18. NORMAL. NO CONTROL. PCP: DR. JOHNSTON Allergies and Home Medications Allergies Coded Allergies: latex (Verified Allergy, Severe, SEVERE SWELLING, 04/07/18) Home Medications Alprazolam 1 Mg Tablet, 1 MG PO BID PRN for ANXIETY, (Reported) Hyoscyamine Sulfate 0.125 Mg Tab.subl, 1-2 TAB SL Q4H Prescribed by: MIRIAN HARRISON on 06/27/182350 Lisinopril 20 Mg Tablet, 20 MG PO DAILY, (Reported) Metoprolol Tartrate 50 Mg Tablet, 50 MG PO DAILY, (Reported) Naproxen 500 Mg Tablet, 500 MG PO BID Prescribed by: MIRIAN HARRISON on 06/27/182350 Ondansetron 4 Mg Tab.rapdis, 4 MG PO Q4H Prescribed by: MIRIAN HARRISON on 06/27/182350 Orphenadrine Citrate 100 Mg Tablet.er, 100 MG PO BID FOR MUSCLE SPASMS Prescribed by: MIRIAN HARRISON on 06/27/182350 Tramadol HCl 50 Mg Tablet, 50 MG PO Q12H Prescribed by: CARMEN ARANDA on 04/10/18 0842 Patient Home Medication List Home Medication List Reviewed: Yes Review of Systems Review of Systems Constitutional: no symptoms reported Respiratory: No Symptoms Reported Cardiovascular: No Symptoms Reported Gastrointestinal: See HPI, Abdominal Pain; Denies Constipated, Denies Diarrhea ; Nausea, Vomiting Genitourinary: No Symptoms Reported Musculoskeletal: see HPI, back pain Skin: no symptoms reported Psychiatric/Neurological: No Symptoms Reported Endocrine: No Symptoms Reported Hematologic/Lymphatic: No Symptoms Reported Past Akqcifj-Pccsdw-Uwtgsy Hx Patient Social History Alcohol Use: Denies Use Recreational Drug Use: No Smoking Status: Current Everyday Smoker (1/2 PPD) Type Used: Cigarettes Recent Foreign Travel: No Contact w/Someone Who Travel: No Recent Infectious Disease Expo: No Recent Hopitalizations: No Seasonal Allergies Seasonal Allergies: No Past Medical History Surgeries: Yes (BREAST-BENIGN LUMPECTOMY; LEEP OF CERVIX; R WRIST/HAND-GANGLION ; L KNEE; SEBACEOUS CYST LEFT SCAPULA) Breast, Orthopedic Respiratory: No Currently Using CPAP: No Currently Using BIPAP: No Cardiac: Yes Hypertension Neurological: No Hx : 6 Hx Para: 4 Hx Total # of Abortions (Sp): 2 Reproductive Disorders: Yes (CERVICAL DYSPLASIA) Female Reproductive Disorders: Denies Sexually Transmitted Disease: No HIV/AIDS: No Genitourinary: No Gastrointestinal: No Musculoskeletal: Yes (RIGHT HAND/WRIST SURGERY, LEFT KNEE SURGERY) Endocrine: Yes (GESTATIONAL DIABETES) HEENT: No Loss of Vision: Bilateral Cancer: No Psychosocial: Yes Anxiety Integumentary: No Blood Disorders: No Adverse Reaction/Blood Tranf: No (N/A) Family Medical History No Pertinent Family Hx Physical Exam Vital Signs Vital Signs - First Documented 06/27/18 21:52 Temp 98.8 Pulse 99 Resp 23 B/P (MAP) 185/122 (143) Pulse Ox 96 Capillary Refill : Less Than 3 Seconds Height/Weight/BMI Height: 5'1.00" Weight: 146lbs. 9.0oz. 66.507246cz; 27.7 BMI Method:Stated General Appearance: WD/WN, other (PACING, HOLDING LUQ) Respiratory: normal breath sounds, no respiratory distress, no accessory muscle use Cardiovascular: regular rate, rhythm, no murmur Gastrointestinal: normal bowel sounds, soft, no organomegaly, no pulsatile mass Neurologic/Psychiatric: curbing stonecutter II-XII nml as tested, no motor/sensory deficits, alert, oriented x 3, other (MILDLY ANXIOUS) Skin: normal color, warm/dry Progress/Results/Core Measures Results/Orders Lab Results Laboratory Tests Test 06/27/18 21:54 06/27/18 21:57 Range/Units White Blood Count 10.7 4.3-11.0 10^3/uL Red Blood Count 4.57 4.35-5.85 10^6/uL Hemoglobin 14.3 11.5-16.0 G/DL Hematocrit 41 35-52 % Mean Corpuscular Volume 90 80-99 FL Mean Corpuscular Hemoglobin 31 25-34 PG Mean Corpuscular Hemoglobin Concent 35 32-36 G/DL Red Cell Distribution Width 12.9 10.0-14.5 % Platelet Count 304 130-400 10^3/uL Mean Platelet Volume 9.7 7.4-10.4 FL Neutrophils (%) (Auto) 78 H 42-75 % Lymphocytes (%) (Auto) 15 12-44 % Monocytes (%) (Auto) 5 0-12 % Eosinophils (%) (Auto) 1 0-10 % Basophils (%) (Auto) 0 0-10 % Neutrophils # (Auto) 8.3 H 1.8-7.8 X 10^3 Lymphocytes # (Auto) 1.6 1.0-4.0 X 10^3 Monocytes # (Auto) 0.5 0.0-1.0 X 10^3 Eosinophils # (Auto) 0.1 0.0-0.3 10^3/uL Basophils # (Auto) 0.0 0.0-0.1 10^3/uL Sodium Level 140 135-145 MMOL/L Potassium Level 3.8 3.6-5.0 MMOL/L Chloride Level 105 98-107 MMOL/L Carbon Dioxide Level 26 21-32 MMOL/L Anion Gap 9 5-14 MMOL/L Blood Urea Nitrogen 9 7-18 MG/DL Creatinine 0.94 0.60-1.30 MG/DL Estimat Glomerular Filtration Rate > 60 BUN/Creatinine Ratio 10 Glucose Level 130 H 70-105 MG/DL Calcium Level 11.7 H 8.5-10.1 MG/DL Corrected Calcium 11.3 H 8.5-10.1 MG/DL Total Bilirubin 0.3 0.1-1.0 MG/DL Aspartate Amino Transf (AST/SGOT) 14 5-34 U/L Alanine Aminotransferase (ALT/SGPT) 13 0-55 U/L Alkaline Phosphatase 73 40-136 U/L Total Protein 7.4 6.4-8.2 GM/DL Albumin 4.5 3.2-4.5 GM/DL Amylase Level 38 25-125 U/L Lipase 20 8-78 U/L Urine Color YELLOW Urine Clarity CLEAR Urine pH 6 5-9 Urine Specific [place] 1.020 1.016-1.022 Urine Protein 2+ H NEGATIVE Urine Glucose (UA) NEGATIVE NEGATIVE Urine Ketones NEGATIVE NEGATIVE Urine Nitrite NEGATIVE NEGATIVE Urine Bilirubin NEGATIVE NEGATIVE Urine Urobilinogen 1 NORMAL MG/DL Urine Leukocyte Esterase 1+ H NEGATIVE Urine RBC (Auto) 1+ H NEGATIVE Urine RBC NONE /HPF Urine WBC 0-2 /HPF Urine Squamous Epithelial Cells 2-5 /HPF Urine Crystals PRESENT H /LPF Urine Calcium Oxalate Crystals FEW H /LPF Urine Bacteria NEGATIVE /HPF Urine Casts NONE /LPF Urine Mucus MODERATE H /LPF Urine Culture Indicated NO My Orders Orders - MIRIAN HARRISON DO Urine Bedside (06/27/18 21:44) Ua Culture If Indicated (06/27/18 21:44) Amylase (06/27/18 21:47) Cbc With Automated Diff (06/27/18 21:47) Comprehensive Metabolic Panel (06/27/18 21:47) Lipase (06/27/18 21:47) Saline Lock/Iv-Start (06/27/18 21:47) Lactated Ringers (Lr 1000 Ml Iv Solution (06/27/18 21:47) Ketorolac Injection (Toradol Injection) (06/27/18 22:15) Ondansetron Injection (Zofran Injectio (06/27/18 22:15) Ketorolac Injection (Toradol Injection) (06/27/18 22:07) Ondansetron Injection (Zofran Injectio (06/27/18 22:07) Ct Abd/Pelvis Wo(Kidney Stone) (06/27/18 22:32) Acute Abd Series (06/27/18 22:32) Hydralazine Injection (Apresoline Inject (06/27/18 22:45) Rx-Hyoscyamine Tab (Rx-Levsin Sl) (06/27/18 23:45) Rx-Naproxen (Rx-Naprosyn) (06/27/18 23:45) Rx-Ondansetron Po (Rx-Zofran Po) (06/27/18 23:45) Orphenadrine Injection (Norflex Injectio (06/28/18 00:00) Medications Given in ED Vital Signs/I&O 06/27/18 06/28/18 21:52 00:02 Temp 98.8 98.3 Pulse 99 82 Resp 23 12 B/P (MAP) 185/122 (143) 155/100 Pulse Ox 96 98 Blood Pressure Mean: 143 Progress Progress Note : Progress Note PT STATES SHE RARELY TAKES HER BLOOD PRESSURE MEDICATION, STATES "I FORGET"-- STATES IT IS BECAUSE SHE HAS 3 KIDS, AND HAS BEEN AT LEAST 2 WEEKS SINCE SHE LAST TOOK IT. --SMILING AND LAUGHING SHE SAYS THIS. PAIN EASED AT DISMISSAL NO NAUSEA OR VOMITING DURING ER STAY Diagnostic Imaging Comments CT ABDOMEN/PELVIS--NO ACUTE PROCESS, PER [facility] VIA FAX @ [phone] Reviewed: Reviewed by Me Departure Impression Primary Impression: Abdominal pain Additional Impression: Bilateral flank pain Disposition: HOME, SELF-CARE Condition: Improved Departure-Patient Inst. Referrals: PATIENCE JOHNSTON MD (PCP/Family) Primary Care Physician Patient Instructions: Acute Abdomen (Belly Pain), Adult (DC), Flank Pain (DC) Add. Discharge Instructions: HOME, REST CLEAR LIQUIDS--WATER, BROTH, JELLO, GATORADE WHEN YOUR PAIN IS GONE, ADD BRATS DIET TO CLEAR LIQUIDS FOLLOW UP WITH YOUR DR THIS WEEK FOR FURTHER CARE RETURN TO ER IF WORSE All discharge instructions reviewed with patient and/or family. Voiced understanding. Scripts Ondansetron (Zofran Odt) 4 Mg Tab.rapdis 4 MG PO Q4H for Nausea/Vomiting, #10 TAB Prov: MIRIAN HARRISON DO 06/27/18 Orphenadrine Citrate (Orphenadrine Citrate) 100 Mg Tablet.er 100 MG PO BID, #14 TAB FOR MUSCLE SPASMS Prov: MIRIAN HARRISON DO 06/27/18 Naproxen (Naproxen) 500 Mg Tablet 500 MG PO BID, #20 TAB Prov: MIRIAN HARRISON DO 06/27/18 Hyoscyamine Sulfate (Levsin-Sl) 0.125 Mg Tab.subl 1-2 TAB SL Q4H for Abdominal Pain, #15 TAB Prov: MIRIAN HARRISON DO 06/27/18 MIRIAN HARRISON DO Jun 27, 2018 22:09
[2018-06-27 22:11] LABS: BILIRUBIN,URINE NEGATIVE (NEGATIVE); CLARITY,URINE CLEAR; COLOR,URINE YELLOW; GLUCOSE, URINE (UA) NEGATIVE (NEGATIVE); KETONES,URINE NEGATIVE (NEGATIVE); LEUKOCYTE ESTERASE ,URINE 1+ (NEGATIVE); NITRITE,URINE NEGATIVE (NEGATIVE); PH,URINE 6 (5-9); PROTEIN,URINE 2+ (NEGATIVE); UROBILINOGEN,URINE 1 MG/DL (NORMAL)
[2018-06-27] MEDS ORDERED: KETOROLAC 30 MG/ML VIAL IVP ONE (22:15)
[2018-06-27] MEDS ORDERED: ONDANSETRON 4 MG/2 ML (SDV) Z0FRAN IVP ONE (22:15)
[2018-06-27 22:20] LABS: ALANINE AMINOTRANSFERASE 13 U/L (0-55); ALBUMIN 4.5 GM/DL (3.2-4.5); ALKALINE PHOSPHATASE 73 U/L (40-136); AMYLASE 38 U/L (25-125); BILIRUBIN,TOTAL 0.3 MG/DL (0.1-1.0); BUN/CREATININE RATIO 10; CALCIUM 11.7 MG/DL (8.5-10.1); CARBON DIOXIDE 26 MMOL/L (21-32); CHLORIDE 105 MMOL/L (98-107); CREATININE SERUM 0.94 MG/DL (0.60-1.30); GFR ESTIMATED > 60; GLUCOSE 130 MG/DL (70-105); LIPASE 20 U/L (8-78); POTASSIUM 3.8 MMOL/L (3.6-5.0); SODIUM 140 MMOL/L (135-145); TOTAL PROTEIN 7.4 GM/DL (6.4-8.2)
[2018-06-27 22:25] LABS: BACTERIA,URINE NEGATIVE /HPF; WBC,URINE 0-2 /HPF
[2018-06-27 22:26] LABS: CALCIUM OXALATE CRYSTALS,UR FEW /LPF
[2018-06-27] MEDS ORDERED: hydrALAZINE (APESOLINE) 20 MG/ML VIAL IV ONE (22:45)
[2018-06-27] MEDS ORDERED: RX-ONDANSETRON 4 MG ODT (ZOFRAN) PPK #4 PO STA (23:45)
[2018-06-27] MEDS ORDERED: RX-HYOSCYAMINE 0.125 MG SL (LEVSIN) PPK#6 SL STA (23:45)
[2018-06-27] MEDS ORDERED: RX-NAPROXEN (NAPROSYN) 250 MG TAB PPK#4 PO STA (23:45)
[2018-06-27] MEDS ORDERED: ORPH100T PO (23:51)
[2018-06-27] MEDS ORDERED: ONDA4TAB8 PO (23:51)
[2018-06-27] MEDS ORDERED: HYOS0.1283 SL (23:51)
[2018-06-27] MEDS ORDERED: NAPR-915 PO (23:51)
[2018-06-28] MEDS ORDERED: ORPHENADRINE 60 MG/2 ML (NORFLEX) AMP IV ONE
[2018-06-28 00:02] VITALS: BP 155/100
--- NOTE | 2018-06-28 07:36 | Diagnostic Imaging Report ---
INDICATION: Abdominal and back pain starting earlier in the day TECHNIQUE: Single view chest with supine and upright radiographs of the abdomen. CORRELATION STUDY: None FINDINGS: Frontal radiograph of the chest demonstrates no acute abnormality. Prominent gas-filled loops of bowel noted throughout the abdomen in a nonobstructive pattern. Mild severity fecal retention. No differential air-fluid levels. Mild S-type thoracolumbar scoliotic curvature present. IMPRESSION: 1. Negative for acute cardiopulmonary abnormality. 2. Unremarkable appearing bowel gas pattern. Dictated by: Dictated on workstation # [id number]
--- NOTE | 2018-06-28 07:48 | Diagnostic Imaging Report ---
PROCEDURE: CT urinary tract, rule out kidney stone. TECHNIQUE: Multiple contiguous axial images were obtained through the abdomen and pelvis without the use of intravenous contrast. INDICATION: Abdominal and back pain. Comparison is made with prior examination from 02/02/2016. FINDINGS: The heart size is normal. The lung bases are clear. The liver is normal in size without focal lesions. The gallbladder is unremarkable. There is no biliary ductal dilatation. Spleen is normal. The pancreas and adrenal glands are unremarkable. There is a right renal cyst. There is no evidence of nephrolithiasis or obstructive uropathy. The abdominal aorta is nonaneurysmal. Bowel gas pattern is nonspecific. There is no free air. There is no ascites. There are no focal inflammatory changes. Uterus is normal. There is no pelvic mass or adenopathy. Bladder is normal. The osseous structures are unremarkable. IMPRESSION: Right renal cyst, however, no evidence of nephrolithiasis or obstructive uropathy. No other acute abnormality in the abdomen or pelvis Dictated by: Dictated on workstation # [id number]
== END 2018-06-28 00:12 | disposition home or self-care (01) ==
LOC: EDUNIT# 21:26 → ER 21:28
DX: R10.84 Generalized abdominal pain (principal); I10 Essential (primary) hypertension; F41.9 Anxiety disorder, unspecified; F17.210 Nicotine dependence, cigarettes, uncomplicated; Z91.040 Latex allergy status
CPT/HCPCS: 36415; 74022; 74176; 80053; 81000; 82150; 83690; 84703; 85025; 96361; 96374; 96375

== ENCOUNTER → 2019-06-04 | Outpatient (CLI) | payer MEDICAID ==
[~2019-06-04] MED LIST changes: +NAPR-915 PO; +ORPH100T PO
--- NOTE | 2019-06-04 08:19 | Diagnostic Imaging Report ---
PROCEDURE: CT abdomen and pelvis without contrast. TECHNIQUE: Multiple contiguous axial images were obtained through the abdomen and pelvis without the use of intravenous contrast. Auto Exposure Controls were utilized during the CT exam to meet ALARA standards for radiation dose reduction. INDICATION: Left-sided pain for 2 months. COMPARISON: CT abdomen and pelvis on 06/27/2018. FINDINGS: The heart is unremarkable. The included lung bases are clear. Stable appearance of a cortical cyst in the superior pole of the right kidney with peripheral rim calcifications measuring 3.3 x 2.0 cm. No evidence of obstructing calculi or hydronephrosis. The liver, spleen, pancreas, and adrenal glands have a normal appearance. There is no pathologically enlarged mesenteric or retroperitoneal adenopathy. The bowel loops are nondilated. A few scattered diverticuli are seen in the descending and sigmoid colon without evidence of acute diverticulitis. The appendix is visualized and has a normal appearance. There is no free fluid or free air. The osseous structures are age-appropriate. The bladder is decompressed. A dominant follicle is seen in the left ovary measuring 2.5 cm. There is no free air, loculated collection, or adenopathy in the pelvis. IMPRESSION: 1. No acute inflammation, bowel obstruction, or free fluid. 2. Scattered diverticuli without evidence of acute diverticulitis. 3. Stable cortical cyst in the superior pole of the right kidney with peripheral rim calcification. No hydronephrosis or renal calculi bilaterally. Dictated by: Dictated on workstation # [id number]
== END ==
LOC: RAD 07:47
PROVIDERS: ATTEND Family Medicine
DX: K57.30 Diverticulosis of large intestine without perforation or abscess without bleeding (principal)
CPT/HCPCS: 74176

== ENCOUNTER 2019-07-31 20:12 | Emergency (ER) | payer MEDICAID ==
[~2019-07-31] VITALS: Ht 152.4 cm; Wt 56.8 kg
--- NOTE | 2019-07-31 21:18 | Diagnostic Imaging Report ---
INDICATION: Left hand pain post fall. EXAMINATION: AP, oblique and lateral views of the left hand were obtained. FINDINGS: No fracture or acute bony abnormality is seen. Joint spaces are unremarkable. IMPRESSION: Negative left hand. Dictated by: Dictated on workstation # [id number]
--- NOTE | 2019-07-31 21:19 | Diagnostic Imaging Report ---
INDICATION: Injury to left wrist. AP, oblique, and lateral views of the left wrist are obtained. No fracture or acute bony abnormality is seen. IMPRESSION: Negative left wrist. Dictated by: Dictated on workstation # [id number]
[2019-07-31] MEDS ORDERED: MELO15TA14 PO ×2 (21:35→21:55)
--- NOTE | 2019-07-31 21:36 | ED Upper Extremity ---
General Chief Complaint: Trauma-Non Activation Stated Complaint: FELL INJ HAND Nursing Triage Note: L hand pain Nursing Sepsis Screen: No Definite Risk Source: patient History of Present Illness Date Seen by Provider: Jul 31, 2019 Time Seen by Provider: 20:33 Initial Comments PT ARRIVES VIA POV FROM HOME STATES SHE WAS RUNNING AND CHASING 2 Y.O. 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 JOHNSTON Allergies and Home Medications Allergies Coded Allergies: latex (Verified Allergy, Severe, SEVERE SWELLING, 04/07/18) Home Medications Alprazolam 1 Mg Tablet, 1 MG PO BID PRN for ANXIETY, (Reported) Hyoscyamine Sulfate 0.125 Mg Tab.subl, 1-2 TAB SL Q4H Prescribed by: MIRIAN HARRISON on 06/27/182350 Lisinopril 20 Mg Tablet, 20 MG PO DAILY, (Reported) Meloxicam 15 Mg Tablet, 15 MG PO DAILY Prescribed by: MIRIAN HARRISON on 07/31/192154 Metoprolol Tartrate 50 Mg Tablet, 50 MG PO DAILY, (Reported) Naproxen 500 Mg Tablet, 500 MG PO BID Prescribed by: MIRIAN HARRISON on 06/27/182350 Ondansetron 4 Mg Tab.rapdis, 4 MG PO Q4H Prescribed by: MIRIAN HARRISON on 06/27/182350 Orphenadrine Citrate 100 Mg Tablet.er, 100 MG PO BID FOR MUSCLE SPASMS Prescribed by: MIRIAN HARRISON on 06/27/182350 Tramadol HCl 50 Mg Tablet, 50 MG PO Q12H Prescribed by: CARMEN ARANDA on 04/10/18 0858 Patient Home Medication List Home Medication List Reviewed: Yes Review of Systems Constitutional: no symptoms reported LMP: Jul 24, 2019 Musculoskeletal: see HPI Skin: no symptoms reported Psychiatric/Neurological: No Symptoms Reported Past Hsfuylh-Gefuhv-Pcznpv Hx Patient Social History Smoking Status: Current Everyday Smoker Type Used: Cigarettes Recent Foreign Travel: No Contact w/Someone Who Travel: No Recent Infectious Disease Expo: No Recent Hopitalizations: No Physical Abuse: No Sexual Abuse: No Mistreated: No Seasonal Allergies Seasonal Allergies: No Past Medical History Surgeries: Yes (RIGHT HAND / TENDON REPAIR) Breast, Orthopedic Respiratory: No Currently Using CPAP: No Currently Using BIPAP: No Cardiac: Yes Hypertension Neurological: No Last Menstrual Period: Jul 11, 2019 Reproductive Disorders: Yes (CERVICAL DYSPLASIA) Female Reproductive Disorders: Denies Sexually Transmitted Disease: No HIV/AIDS: No Genitourinary: No Gastrointestinal: No Musculoskeletal: No (RIGHT HAND/WRIST SURGERY, LEFT KNEE SURGERY) Endocrine: No (GESTATIONAL DIABETES) HEENT: No Loss of Vision: Bilateral Cancer: No Psychosocial: Yes Anxiety Integumentary: No Blood Disorders: No Adverse Reaction/Blood Tranf: No (N/A) Family Medical History No Pertinent Family Hx Physical Exam Vital Signs Vital Signs - First Documented 07/31/19 07/31/19 20:36 21:50 Temp 37.5 Pulse 82 Resp 18 B/P (MAP) 147/82 (103) Pulse Ox 98 O2 Delivery Room Air Capillary Refill : Less Than 3 Seconds Height, Weight, BMI Height: 5'1.00" Weight: 146lbs. 9.0oz. 66.534076ps; 24.00 BMI Method:Stated General Appearance: WD/WN, no apparent distress Shoulder: normal inspection, non-tender, no evidence of injury, normal ROM Elbow/Forearm: normal inspection, non-tender, no evidence of injury, normal ROM Wrist: Yes non-tender, Yes no evidence of injury, Yes limited ROM Hand: Left, bone tenderness (MODERATE TENDERNESS TO ENTIRE DORSUM OF LEFT HAND, WITH MARKED TENDERNESS TO RIGHT THUMB MCP JOINT, SNUFF BOX AND METACARPAL, WITH SLIGHT SWELLING TO THENAR EMINENCE OF LEFT THUMB. DISTAL MOTOR/ SENSORY/VASCULAR INTACT. NO BRUISING. VERY LIMITED ROM DUE TO PAIN ), limited ROM, soft tissue tenderness Neurologic/Tendon: normal sensation, normal motor functions Neurologic/Psychiatric: inside polisher II-XII nml as tested, no motor/sensory deficits, alert, normal mood/affect, oriented x 3 Skin: normal color, warm/dry; No ecchymosis Procedures/Interventions Splinting and Joint Reduction : Splints: Thumb/Wrist Spica Progress/Results/Core Measures Results/Orders My Orders Orders - MIRIAN HARRISON DO Wrist, Left, 3 Views Or More (07/31/19 20:30) Hand, Left, 3 Views (07/31/19 20:30) Thumb Spika (07/31/19 21:33) Rx-Naproxen (Rx-Naprosyn) (07/31/19 21:45) Medications Given in ED Current Medications Medications Dose Ordered Sig/Jeane Route Start Time Stop Time Status Last Admin Dose Admin Naproxen 250 mg ONCE ONCE PO 07/31/19 21:45 07/31/19 21:48 DC 07/31/19 21:50 250 MG Vital Signs/I&O 07/31/19 07/31/19 20:36 21:50 Temp 37.5 37.1 Pulse 82 72 Resp 18 18 B/P (MAP) 147/82 (103) 192/118 Pulse Ox 98 O2 Delivery Room Air Blood Pressure Mean: 103 Progress Progress Note : Progress Note STRESSED THE IMPORTANCE OF FOLLOW UP WITH ORTHOPEDIC SURGEON FOR FURTHER EVALUATION DUE TO POSSIBILITY OF LIGAMENTOUS INJURY TO THUMB. Diagnostic Imaging Comments XRAYS LEFT HAND AND WRIST--NO ACUTE PROCESS, PER RADIOLOGIST REPORTS AT 2133 Reviewed: Reviewed by Me Departure Impression Primary Impression: LEFT HAND AND THUMB SPRAIN Disposition: HOME, SELF-CARE Condition: Stable Departure-Patient Inst. Referrals: DARIEN JEFF DO (PCP) Primary Care Physician LILIBETH GREENE DO Patient Instructions: Common Wrist Injuries (DC), Sprained Thumb (DC) Add. Discharge Instructions: ICE TO AREA AT 20 MINUTE INTERVALS WEAR SPLINT AT ALL TIMES FOLLOW UP WITH DR GREENE IN 2-3 DAYS FOR FURTHER CARE All discharge instructions reviewed with patient and/or family. Voiced understan rosmery. Scripts Meloxicam (Mobic) 15 Mg Tablet 15 MG PO DAILY, #10 TAB Prov: MIRIAN HARRISON DO 07/31/19 Work/School Note: Work Release Form Date Seen in the Emergency Department: Jul 31, 2019 Return to Work: Aug 01, 2019 Restrictions: Need Release from Doctor Other Restrictions Listed Below: NO USE OF LEFT HAND UNTIL RELEASED BY DRGisell MUST WEAR SPLINT AT ALL TIMES MIRIAN HARRISON DO Jul 31, 2019 21:36
[2019-07-31] MEDS ORDERED: RX-NAPROXEN (NAPROSYN) 250 MG TAB PPK#4 PO ONE (21:45)
[2019-07-31 21:50] VITALS: BP 192/118
== END 2019-07-31 21:50 | disposition home or self-care (01) ==
LOC: EDUNIT# 20:12 → ER 20:13
DX: S63.602A Unspecified sprain of left thumb, initial encounter (principal); S63.92XA Sprain of unspecified part of left wrist and hand, initial encounter; I10 Essential (primary) hypertension; F41.9 Anxiety disorder, unspecified; F17.210 Nicotine dependence, cigarettes, uncomplicated; Z91.040 Latex allergy status; W19.XXXA Unspecified fall, initial encounter; Y93.02 Activity, running; Y92.009 Unspecified place in unspecified non-institutional (private) residence as the place of occurrence of the external cause
CPT/HCPCS: 29125; 73110; 73130

== ENCOUNTER → 2020-03-31 | Outpatient (CLI) | payer MEDICAID ==
[~2020-03-31] MED LIST changes: +MELO15TA14 PO; -TRAM50TA2 PO; +TRM50T PO
--- NOTE | 2020-03-31 14:12 | Diagnostic Imaging Report ---
INDICATION: Screening. EXAMINATION: 2-D and 3-D digital screening with CAD. COMPARISON: 05/26/2015 FINDINGS: The parenchymal pattern remains heterogeneously dense limiting mammographic sensitivity. No mass, architectural distortion, spiculated lesion or suspicious calcifications are demonstrated. The skin, nipples and axilla within normal limits. IMPRESSION: Stable negative mammograms BI-RADS Category 1. ACR BI-RADS Category 1: Negative. Result letter will be mailed to the patient. Note: At least 10% of breast cancer is not imaged by mammography. Dictated by: Dictated on workstation # [id number]
== END ==
LOC: RAD 10:21
PROVIDERS: ATTEND Family Medicine
DX: Z12.31 Encounter for screening mammogram for malignant neoplasm of breast (principal)
CPT/HCPCS: 77063; 77067

== ENCOUNTER 2020-04-09 01:59 | Inpatient (IN) | payer MEDICAID ==
[2020-04-09] VITALS (11 sets, daily range): BP systolic 101–167; BP diastolic 67–99
[~2020-04-09] VITALS: Ht 155 cm; Wt 61.1 kg
[2020-04-09] MEDS ORDERED: VANCOMYCIN INJECTION 750 MG in NS (IVPB) 100 ML IV ONE (02:45)
[2020-04-09] MEDS ORDERED: KETOROLAC 30 MG/ML VIAL IVP ONE (02:45)
[2020-04-09] MEDS ORDERED: PIPERACILLIN SODIUM/TAZOBACTAM 4.5 GM in NS (IVPB) 100 ML IV ONE (02:45)
--- NOTE | 2020-04-09 02:53 | NUR ---
DR. JEFF HERE TO ASSESS PT.
[2020-04-09 03:05] LABS: BASOPHILS % (AUTO) 0 % (0-10); EOSINOPHILS # (AUTO) 0.1 10^3/uL (0.0-0.3); EOSINOPHILS % (AUTO) 1 % (0-10); HEMATOCRIT 40 % (35-52); HEMOGLOBIN 13.4 G/DL (11.5-16.0); LYMPHOCYTES # (AUTO) 1.4 X 10^3 (1.0-4.0); LYMPHOCYTES % (AUTO) 13 % (12-44); MEAN CORPUSCULAR HEMOGLOBIN 30 PG (25-34); MEAN CORPUSCULAR HGB CONC 33 G/DL (32-36); MEAN CORPUSCULAR VOLUME 89 FL (80-99); MEAN PLATELET VOLUME 10.4 FL (7.4-10.4); MONOCYTES % (AUTO) 10 % (0-12); NEUTROPHILS # (AUTO) 7.8 X 10^3 (1.8-7.8); NEUTROPHILS % (AUTO) 76 % (42-75); PLATELET COUNT 258 10^3/uL (130-400); RED CELL DISTRIBUTION WIDTH 13.8 % (10.0-14.5); WHITE BLOOD COUNT 10.3 10^3/uL (4.3-11.0)
[2020-04-09 03:16] LABS: ALBUMIN 3.9 GM/DL (3.2-4.5); POTASSIUM 2.9 MMOL/L (3.6-5.0)
[2020-04-09 03:18] LABS: CALCIUM 11.2 MG/DL (8.5-10.1)
[2020-04-09 03:20] LABS: BILIRUBIN,TOTAL 0.3 MG/DL (0.1-1.0)
[2020-04-09 03:22] LABS: CREATININE SERUM 3.51 MG/DL (0.60-1.30)
[2020-04-09 03:23] LABS: BILIRUBIN,URINE NEGATIVE (NEGATIVE); CLARITY,URINE SL CLOUDY; COLOR,URINE YELLOW; GLUCOSE, URINE (UA) NEGATIVE (NEGATIVE); KETONES,URINE NEGATIVE (NEGATIVE); LEUKOCYTE ESTERASE ,URINE NEGATIVE (NEGATIVE); NITRITE,URINE NEGATIVE (NEGATIVE); PROTEIN,URINE 1+ (NEGATIVE)
--- NOTE | 2020-04-09 03:32 | ED General ---
General Chief Complaint: Skin/Wound Problems Stated Complaint: L LEG KNOT Nursing Triage Note: TO ED VIA POV AND AMBULATORY TO ROOM 6 WITH C/O "KNOT" IN LEFT GROIN AREA. STATES STARTED THIS PAST FRIDAY. SITE PER PT IS RED, WARM, HARD, PAINFUL TO TOUCH WELL PAINFUL TO SIT, WALK, ETC. Nursing Sepsis Screen: Possible Sepsis Risk Source of Information: Patient Exam Limitations: No Limitations History of Present Illness Date Seen by Provider: Apr 09, 2020 Time Seen by Provider: 02:30 Initial Comments This 39-year-old woman presents to the emergency room with pain, induration, and swelling of the left groin region along with fever up to 102. This is the third day of symptoms. See nursing notes above. Allergies and Home Medications Allergies Coded Allergies: latex (Verified Allergy, Severe, SEVERE SWELLING, 04/07/18) Home Medications Alprazolam 1 Mg Tablet, 1 MG PO BID PRN for ANXIETY, (Reported) Hyoscyamine Sulfate 0.125 Mg Tab.subl, 1-2 TAB SL Q4H Prescribed by: MIRIAN HARRISON on 06/27/182350 Lisinopril 20 Mg Tablet, 20 MG PO DAILY, (Reported) Meloxicam 15 Mg Tablet, 15 MG PO DAILY Prescribed by: MIRIAN HARRISON on 07/31/192154 Metoprolol Tartrate 50 Mg Tablet, 50 MG PO DAILY, (Reported) Naproxen 500 Mg Tablet, 500 MG PO BID Prescribed by: MIRIAN HARRISON on 06/27/182350 Ondansetron 4 Mg Tab.rapdis, 4 MG PO Q4H Prescribed by: MIRIAN HARRISON on 06/27/182350 Orphenadrine Citrate 100 Mg Tablet.er, 100 MG PO BID FOR MUSCLE SPASMS Prescribed by: MIRIAN HARRISON on 06/27/182350 Tramadol HCl 50 Mg Tablet, 50 MG PO Q12H Prescribed by: CARMEN ARANDA on 04/10/18 6407 Patient Home Medication List Home Medication List Reviewed: Yes Review of Systems Review of Systems Constitutional: see HPI EENTM: no symptoms reported Respiratory: no symptoms reported Cardiovascular: no symptoms reported Gastrointestinal: no symptoms reported Genitourinary: no symptoms reported : No Musculoskeletal: no symptoms reported Skin: see HPI Psychiatric/Neurological: No Symptoms Reported Hematologic/Lymphatic: No Symptoms Reported Immunological/Allergic: no symptoms reported Past Uqjlcfy-Cbnyor-Jdtnfw Hx Past Med/Social Hx: Reviewed Nursing Past Med/Soc Hx Patient Social History Alcohol Use: Denies Use Recreational Drug Use: No Smoking Status: Current Everyday Smoker Type Used: Cigarettes 2nd Hand Smoke Exposure: Yes Recent Foreign Travel: No Contact w/Someone Who Travel: No Recent Infectious Disease Expo: No Recent Hopitalizations: No Physical Abuse: No Sexual Abuse: No Mistreated: No Fear: No Immunizations Up To Date Tetanus Booster (TDap): Unknown Seasonal Allergies Seasonal Allergies: No Past Medical History Surgeries: Yes (RIGHT HAND / TENDON REPAIR) Breast, Orthopedic Respiratory: No Currently Using CPAP: No Currently Using BIPAP: No Cardiac: Yes Hypertension Neurological: No Reproductive Disorders: Yes (CERVICAL DYSPLASIA) Female Reproductive Disorders: Denies Sexually Transmitted Disease: No HIV/AIDS: No Genitourinary: No Gastrointestinal: No (DIVERTICULITIS) Musculoskeletal: No (RIGHT HAND/WRIST SURGERY, LEFT KNEE SURGERY) Endocrine: No (GESTATIONAL DIABETES) HEENT: No Loss of Vision: Bilateral Cancer: No Psychosocial: Yes Anxiety, Depression Integumentary: No Blood Disorders: No Adverse Reaction/Blood Tranf: No (N/A) Family Medical History No Pertinent Family Hx Physical Exam-Suspected Sepsis Physical Exam Vital Signs Vital Signs - First Documented 04/09/20 04/09/20 02:11 04:46 Temp 37.7 Pulse 98 Resp 18 B/P (MAP) 137/91 (106) Pulse Ox 97 O2 Delivery Room Air Capillary Refill : Less Than 3 Seconds Blood Pressure Mean: 106 Height, Weight, BMI Height: 5'1.00" Weight: 146lbs. 9.0oz. 66.712139jo; 24.00 BMI Method:Stated General Appearance: No Apparent Distress, WD/WN HEENT: PERRL/EOMI, Normal ENT Inspection Neck: Normal Inspection, Supple Respiratory: Lungs Clear, Normal Breath Sounds, No Accessory Muscle Use, No Respiratory Distress Cardiovascular: Regular Rate, Rhythm, No Murmur, Normal Peripheral Pulses Extremity: Other (Pain, warm erythema, induration, and swelling of the left groin extending around to the left buttock) Neurologic/Psychiatric: Alert, Oriented x3, No Motor/Sensory Deficits, Normal Mood/Affect, nurse case management II-XII Norm as Tested Skin: normal color, warm/dry Focused Exam Lactate Level 04/09/20 02:45: Lactic Acid Level 1.52 Lactic Acid Level Progress/Results/Core Measures Suspected Sepsis Recent Fever Within 48 Hours: Yes Infection Criteria Present: Suspected New Infection New/Unexplained Altered Menta: No Sepsis Screen: Possible Sepsis Risk SIRS Temperature: Pulse: 98 Respiratory Rate: 18 Laboratory Tests 04/09/20 02:45: White Blood Count 10.3 Blood Pressure 137 /91 Mean: 106 04/09/20 02:45: Lactic Acid Level 1.52 Laboratory Tests 04/09/20 02:45: Creatinine 3.51H, INR Comment 1.0, Platelet Count 258, Total Bilirubin 0.3 Results/Orders Lab Results Laboratory Tests Test 04/09/20 02:40 04/09/20 02:45 Range/Units Urine Color YELLOW Urine Clarity SL CLOUDY Urine pH 6.0 5-9 Urine Specific Jewell >=1.030 1.016-1.022 Urine Protein 1+ H NEGATIVE Urine Glucose (UA) NEGATIVE NEGATIVE Urine Ketones NEGATIVE NEGATIVE Urine Nitrite NEGATIVE NEGATIVE Urine Bilirubin NEGATIVE NEGATIVE Urine Urobilinogen 1.0 < = 1.0 MG/DL Urine Leukocyte Esterase NEGATIVE NEGATIVE Urine RBC (Auto) 1+ H NEGATIVE Urine RBC 0-2 /HPF Urine WBC RARE /HPF Urine Squamous Epithelial Cells 25-50 H /HPF Urine Crystals NONE /LPF Urine Bacteria FEW H /HPF Urine Casts NONE /LPF Urine Mucus LARGE H /LPF Urine Culture Indicated CULTURE PENDING White Blood Count 10.3 4.3-11.0 10^3/uL Red Blood Count 4.49 4.35-5.85 10^6/uL Hemoglobin 13.4 11.5-16.0 G/DL Hematocrit 40 35-52 % Mean Corpuscular Volume 89 80-99 FL Mean Corpuscular Hemoglobin 30 25-34 PG Mean Corpuscular Hemoglobin Concent 33 32-36 G/DL Red Cell Distribution Width 13.8 10.0-14.5 % Platelet Count 258 130-400 10^3/uL Mean Platelet Volume 10.4 7.4-10.4 FL Neutrophils (%) (Auto) 76 H 42-75 % Lymphocytes (%) (Auto) 13 12-44 % Monocytes (%) (Auto) 10 0-12 % Eosinophils (%) (Auto) 1 0-10 % Basophils (%) (Auto) 0 0-10 % Neutrophils # (Auto) 7.8 1.8-7.8 X 10^3 Lymphocytes # (Auto) 1.4 1.0-4.0 X 10^3 Monocytes # (Auto) 1.0 0.0-1.0 X 10^3 Eosinophils # (Auto) 0.1 0.0-0.3 10^3/uL Basophils # (Auto) 0.0 0.0-0.1 10^3/uL Prothrombin Time 13.0 12.2-14.7 SEC INR Comment 1.0 0.8-1.4 Activated Partial Thromboplast Time 29 24-35 SEC Sodium Level 137 135-145 MMOL/L Potassium Level 2.9 L 3.6-5.0 MMOL/L Chloride Level 102 98-107 MMOL/L Carbon Dioxide Level 25 21-32 MMOL/L Anion Gap 10 5-14 MMOL/L Blood Urea Nitrogen 6 L 7-18 MG/DL Creatinine 3.51 H 0.60-1.30 MG/DL Estimat Glomerular Filtration Rate 14 BUN/Creatinine Ratio 2 Glucose Level 153 H 70-105 MG/DL Lactic Acid Level 1.52 0.50-2.00 MMOL/L Calcium Level 11.2 H 8.5-10.1 MG/DL Corrected Calcium 11.3 H 8.5-10.1 MG/DL Total Bilirubin 0.3 0.1-1.0 MG/DL Aspartate Amino Transf (AST/SGOT) 23 5-34 U/L Alanine Aminotransferase (ALT/SGPT) 19 0-55 U/L Alkaline Phosphatase 59 40-136 U/L C-Reactive Protein High Sensitivity 10.79 H 0.00-0.50 MG/DL Total Protein 7.0 6.4-8.2 GM/DL Albumin 3.9 3.2-4.5 GM/DL Serum Test, Qualitative NEGATIVE NEGATIVE My Orders Orders - SHAVONNE ANSARI MD Cbc With Automated Diff (04/09/20 02:35) Comprehensive Metabolic Panel (04/09/20 02:35) Blood Culture (04/09/20 02:35) Sputum Culture (04/09/20 02:35) Urinalysis (04/09/20 02:35) Urine Culture (04/09/20 02:35) Protime With Inr (04/09/20 02:35) Partial Thromboplastin Time (04/09/20 02:35) Chest 1 View, Ap/Pa Only (04/09/20 02:35) Ed Iv/Invasive Line Start (04/09/20 02:35) Ed Iv/Invasive Line Start (04/09/20 02:35) Vital Signs Adult Sepsis Patie Q15M (04/09/20 02:35) O2 (04/09/20 02:35) Remove Rings In Anticipation O (04/09/20 02:35) Lactic Acid Analyzer (04/09/20 02:35) Hs C Reactive Protein (04/09/20 02:35) Hcg,Qualitative Serum (04/09/20 02:35) Piperacillin Sodium/Tazobactam (Zosyn Vi (04/09/20 02:45) Vancomycin Injection (Vancomycin Injecti (04/09/20 02:45) Vancomycin Injection (Vancomycin Injecti (04/09/20 03:45) Ketorolac Injection (Toradol Injection) (04/09/20 02:45) Potassium Cl 10meq/50ml Ivpb (Kcl 10 Meq (04/09/20 04:00) Ns Iv 1000 Ml (Sodium Chloride 0.9%) (04/09/20 03:55) Medications Given in ED Current Medications Medications Dose Ordered Sig/Jeane Route Start Time Stop Time Status Last Admin Dose Admin Ketorolac Tromethamine 30 mg ONCE ONCE IVP 04/09/20 02:45 04/09/20 02:47 DC 04/09/20 03:19 30 MG Piperacillin Sod/ Tazobactam Sod 4.5 gm/Sodium Chloride 100 ml @ 200 mls/hr ONCE ONCE IV 04/09/20 02:45 04/09/20 03:14 DC 04/09/20 03:21 200 MLS/HR Potassium Chloride 50 ml @ 50 mls/hr ONCE ONCE IV 04/09/20 04:00 04/09/20 04:59 DC 04/09/20 04:24 50 MLS/HR Vancomycin HCl 500 mg/Sodium Chloride 100 ml @ 100 mls/hr ONCE ONCE IV 04/09/20 03:45 04/09/20 04:44 DC 04/09/20 03:21 100 MLS/HR Vancomycin HCl 750 mg/Sodium Chloride 100 ml @ 100 mls/hr ONCE ONCE IV 04/09/20 02:45 04/09/20 03:44 DC 04/09/20 03:23 100 MLS/HR Vital Signs/I&O 04/09/20 04/09/20 04/09/20 02:11 04:46 05:13 Temp 37.7 37.7 36.9 Pulse 98 81 82 Resp 18 18 18 B/P (MAP) 137/91 (106) 135/87 (106) 124/76 Pulse Ox 97 97 O2 Delivery Room Air Room Air Capillary Refill : Less Than 3 Seconds Blood Pressure Mean: 106 Progress Note : Progress Note Septic workup was pursued. Zosyn and vancomycin were ordered. Dr. Mccann was consulted and plans to open up the abscess later today. Toradol was given for pain. V fluids were administered. Diagnostic Imaging Diagonstic Imaging: Xray Plain Films/CT/US/NM/MRI: chest Comments NAME: CLINT BARRAZA MED REC#: [id number] PT STATUS: ADM IN : 1980 PHYSICIAN: SAHVONNE ANSARI MD ADMIT DATE: 04/09/20/ Draft Date of Exam:04/09/20 CHEST 1 VIEW, AP/PA ONLY INDICATION: Fever. Time of exam: 3:19 AM Comparison is made with prior chest from 06/27/2018. The heart size is normal. The pulmonary vascularity is unremarkable. The lungs are clear. No infiltrate, effusion or pneumothorax is detected. IMPRESSION: No acute cardiopulmonary process is detected. Dictated on workstation # [id number] Dict: 04/09/20 0710 Trans: 04/09/20 0715 GEE [id number] Interpreted by: RUKHSANA PAINTING MD Departure Communication (Admissions) Time/Spoke to Admitting Phy: 04:03 Dr. Johnston Time/Spoke to Consulting Phy: 03:20 Dr. Mccann Impression Primary Impression: Sepsis Qualified Codes: A41.9 - Sepsis, unspecified organism Additional Impression: Abscess or cellulitis of thigh Disposition: ADMITTED INPATIENT Condition: Improved Admissions Decision to Admit Reason: Admit from ER (General) Decision to Admit/Date: Apr 09, 2020 Time/Decision to Admit Time: 02:35 Departure-Patient Inst. Referrals: PATIENCE JOHNSTON MD (PCP/Family) Primary Care Physician SHAVONNE ANSARI MD Apr 09, 2020 03:32
[2020-04-09 03:37] LABS: BACTERIA,URINE FEW /HPF; RBC,URINE 0-2 /HPF; SQUAMOUS EPITHELIAL CELL,UR 25-50 /HPF; WBC,URINE RARE /HPF
[2020-04-09] MEDS ORDERED: VANCOMYCIN INJECTION 500 MG in NS (IVPB) 100 ML IV ONE (03:45)
[2020-04-09] MEDS ORDERED: NS IV 1000 ML 1,000 ML IV SCH (03:55)
[2020-04-09] MEDS ORDERED: POTASSIUM CL 10MEQ/50ML IVPB 50 ML IV ONE (04:00)
--- NOTE | 2020-04-09 04:30 | NUR ---
LEFT GROIN AREA ABSCESS MARKED.
--- NOTE | 2020-04-09 05:13 | NUR ---
CLINT BARRAZA admitted to room 416-1, with an admitting diagnosis of SEPSIS, LEFT THIGH ABSCESS/CELLULITIS, HYPOKALEMIA, [facility] accompanied by STAFF.CLINT BARRAZA introduced to surroundings, call light, bed controls, phone, TV, temperature control, lights, meal times, smoking policy, visitor policy, side rail policy, bathrooms and showers. Patient Rights given to patient in the handbook. CLINT BARRAZA verbalizes understanding that [facility] is not responsible for the loss or damage to any personal effects or valuables that are kept in the patients posession during their hospitalization. CLINT BARRAZA verbalizes understanding of Interdisciplinary Patient Education. Patient and/or family were informed about the Rapid Response Team and its purpose.
[2020-04-09] MEDS ORDERED: D5 1/2 NS W/KCL 40 MEQ/L 1,000 ML IV ONE (05:40)
[2020-04-09] MEDS: D5 1/2 NS W/KCL 40 MEQ/L 1,000 ML IV SCH ×2 (06:13→14:30)
--- NOTE | 2020-04-09 07:16 | Diagnostic Imaging Report ---
INDICATION: Fever. Time of exam: 3:19 AM Comparison is made with prior chest from 06/27/2018. The heart size is normal. The pulmonary vascularity is unremarkable. The lungs are clear. No infiltrate, effusion or pneumothorax is detected. IMPRESSION: No acute cardiopulmonary process is detected. Dictated by: Dictated on workstation # [id number]
--- NOTE | 2020-04-09 07:30 | NUR ---
PTD Vanco - 1250mg loading dose administered in ER, patients CrCl = 20.9ml/min using actual bodyweight. Following loading dose, will continue with 500mg every 24 hours.
--- NOTE | 2020-04-09 07:38 | NUR ---
Renal Adjustment for Zosyn - Using adj. bodywt to calculate CrCl = 17.7ml/min. Dose reduction indicated when CrCl is less than 20 to 4.5gm every 12 hours. Will monitor renal function. If SCr improves, will adjust dosing as indicated.
--- NOTE | 2020-04-09 08:00 | History & Physicial ---
History of Present Illness History of Present Illness Reason for visit/HPI 39 yo here with pain and redness to the inner aspect of the left thigh. She basically reports this came on within the last 48 hours. She cannot think what route this on. She denies any bug bites or getting into any plants in the yard that may have aggravated the area. She has been running a fever. Date of Admission Apr 09, 2020 at 04:06 Date Seen by a Provider: Apr 09, 2020 Time Seen by a Provider: 08:10 I consulted on this patient on 04/09/20 07:57 Attending Physician Mikey Johnston MD Admitting Physician Mikey Johnston MD Consult Allergies and Home Medications Allergies Coded Allergies: latex (Verified Allergy, Severe, SEVERE SWELLING, 04/07/18) Home Medications Alprazolam 1 Mg Tablet, 1 MG PO BID PRN for ANXIETY, (Reported) Hyoscyamine Sulfate 0.125 Mg Tab.subl, 1-2 TAB SL Q4H Prescribed by: MIRIAN HARRISON on 06/27/182350 Lisinopril 20 Mg Tablet, 20 MG PO DAILY, (Reported) Meloxicam 15 Mg Tablet, 15 MG PO DAILY Prescribed by: MIRIAN HARRISON on 07/31/192154 Metoprolol Tartrate 50 Mg Tablet, 50 MG PO DAILY, (Reported) Naproxen 500 Mg Tablet, 500 MG PO BID Prescribed by: MIRIAN HARRISON on 06/27/182350 Ondansetron 4 Mg Tab.rapdis, 4 MG PO Q4H Prescribed by: MIRIAN HARRISON on 06/27/182350 Orphenadrine Citrate 100 Mg Tablet.er, 100 MG PO BID FOR MUSCLE SPASMS Prescribed by: MIRIAN HARRISON on 06/27/182350 Tramadol HCl 50 Mg Tablet, 50 MG PO Q12H Prescribed by: CARMEN ARANDA on 04/10/18 0858 Patient Home Medication List Home Medication List Reviewed: Yes Past Wtxoxbe-Mxjpiq-Taleda Hx Patient Social History Marrital Status: cohabiting Alcohol Use: Denies Use Recreational Drug Use: No Smoking Status: Current Everyday Smoker Type Used: Cigarettes 2nd Hand Smoke Exposure: Yes Recent Foreign Travel: No Contact w/other who traveled: No Recent Hopitalizations: No Recent Infectious Disease Expo: No Immunizations Up To Date Tetanus Booster (TDap): Unknown Date of Pneumonia Vaccine: Mar 27, 2015 Seasonal Allergies Seasonal Allergies: No Surgeries Yes (RIGHT HAND / TENDON REPAIR) Breast, Orthopedic Respiratory No Currently Using CPAP: No Currently Using BIPAP: No Cardiovascular Yes Hypertension Neurological No Reproductive System Hx Reproductive Disorders: Yes (CERVICAL DYSPLASIA) Sexually Transmitted Disease: No HIV/AIDS: No Female Reproductive Disorders: Denies Genitourinary No Gastrointestinal No (DIVERTICULITIS) Musculoskeletal No (RIGHT HAND/WRIST SURGERY, LEFT KNEE SURGERY) Endocrine History of Endocrine Disorders: No (GESTATIONAL DIABETES) HEENT History of HEENT Disorders: No Loss of Vision: Bilateral Cancer No Psychosocial History of Psychiatric Problem: Yes Behavioral Health Disorders: Anxiety, Depression Integumentary History of Skin or Integumenta: No Blood Transfusions History of Blood Disorders: No Adverse Reaction to a Blood Tr: No (N/A) Family Medical History Significant Family History: No Pertinent Family Hx Review of Systems Constitutional: see HPI Physical Exam Vital Signs Vital Signs - First Documented 04/09/20 04/09/20 02:11 04:46 Temp 37.7 Pulse 98 Resp 18 B/P (MAP) 137/91 (106) Pulse Ox 97 O2 Delivery Room Air Capillary Refill : Less Than 3 Seconds Height, Weight, BMI Height: 5'1.00" Weight: 146lbs. 9.0oz. 66.046161tz; 25.43 BMI Method:Stated General Appearance: No Apparent Distress HEENT: Normal ENT Inspection Respiratory: Lungs Clear Cardiovascular: Regular Rate, Rhythm Rectal: Deferred Extremity: Inflammation (And erythema noted to the inner aspect of the left thigh. Area of involvement proximally one third of proximal inner thigh. Fluc tuance noted) Comments [facility] [place], [place] NAME: [facility] REC#: [id number] PT STATUS: ADM IN : 1980 PHYSICIAN: SHAVONNE ANSARI MD ADMIT DATE: 04/09/20/ Draft Date of Exam:04/09/20 CHEST 1 VIEW, AP/PA ONLY INDICATION: Fever. Time of exam: 3:19 AM Comparison is made with prior chest from 06/27/2018. The heart size is normal. The pulmonary vascularity is unremarkable. The lungs are clear. No infiltrate, effusion or pneumothorax is detected. IMPRESSION: No acute cardiopulmonary process is detected. Dictated on workstation # [id number] Dict: 04/09/20 0710 Trans: 04/09/20 0715 [facility] [id number] Interpreted by: RUKHSANA PAINTING MD Electronically signed by: Assessment/Plan Assessment and Plan 1. Cellulitis of left thigh with abscess formation -admitted through ED and placed on Vanc and zosyn -Dr Mccann seen patient in the emergency department on presentation. Admission Diagnosis 1. Cellulitis of left thigh with abscess formation Admission Status: Inpatient Order (span 2 midnights) Reason for Inpatient Admission: IV antibiotics and surgical consultation Clinical Quality Measures DVT/VTE Risk/Contraindication: Risk Factor Score Per Nursin RFS Level Per Nursing on Admit: 4+=Very High MIKEY JOHNSTON MD Apr 09, 2020 08:00
[2020-04-09] MEDS ORDERED: MTP100TCR PO (08:44)
[2020-04-09] MEDS ORDERED: CITA10TA12 PO (08:45)
[2020-04-09] MEDS ORDERED: AMLO5TAB9 PO (08:50)
[2020-04-09] MEDS ORDERED: NORG1TAB86 PO (08:50)
[2020-04-09] MEDS ORDERED: CYCL10TA9 PO (08:50)
[2020-04-09] MEDS: fentaNYL INJECTION 100 MCG/2 ML AMP IV PRN ×2 (09:00→12:27)
[2020-04-09] MEDS ORDERED: PIPERACILLIN/TAZO 4.5 GM/NS 100 ML IV SCH ×2 (10:00)
--- NOTE | 2020-04-09 10:14 | Consultation - Surgery ---
History of Present Illness History of Present Illness Patient Consulted On(robert/time) 04/09/20 10:09 Time Seen by Provider: 03:14 History of Present Illness Surgery asked to consult regarding left leg abscess and cellulitis. HPI per ED: TO ED VIA POV AND AMBULATORY TO ROOM 6 WITH C/O "KNOT" IN LEFT GROIN AREA. STATES STARTED THIS PAST FRIDAY. SITE PER PT IS RED, WARM, HARD, PAINFUL TO TOUCH WELL PAINFUL TO SIT, WALK, ETC. This 39-year-old woman presents to the emergency room with pain, induration, and swelling of the left groin region along with fever up to 102. This is the third day of symptoms. See nursing notes above. When I spoke to pt early this am, she stated she had never had anything like this before. Denied any trauma to the area and no splinters, bites or other foreign object penetration to this area. Rating the pain as 7-8 out of 10, sharp and constant pain. Nothing seems to make it better except the pain meds. Allergies and Home Medications Allergies Coded Allergies: latex (Verified Allergy, Severe, SEVERE SWELLING, 04/07/18) Home Medications Alprazolam 1 Mg Tablet, 1 MG PO BID PRN for ANXIETY, (Reported) Amlodipine Besylate 5 Mg Tablet, 5 MG PO DAILY Prescribed by: JIM SANCHES on 04/09/20 0850 Citalopram Hydrobromide 10 Mg Tablet, 10 MG PO DAILY Prescribed by: JIM SANCHES on 04/09/20 0845 Cyclobenzaprine HCl 10 Mg Tablet, 10 MG PO BID PRN Prescribed by: JIM SANCHES on 04/09/20 0850 Lisinopril 20 Mg Tablet, 20 MG PO DAILY, (Reported) Metoprolol Succinate 100 Mg Tab.er.24h, 100 MG PO DAILY Prescribed by: JIM SANCHES on 04/09/20 0844 Norgestimate-Ethinyl Estradiol 1 Each Tablet, 1 EACH PO DAILY PRN for 0 Prescribed by: JIM SANCHES on 04/09/20 0850 Patient Home Medication List Home Medication List Reviewed: Yes Past Hwlvusd-Ospjwv-Wboukz Hx Patient Social History Alcohol Use: Denies Use Recreational Drug Use: No Smoking Status: Current Everyday Smoker Type Used: Cigarettes 2nd Hand Smoke Exposure: Yes Recent Foreign Travel: No Contact w/Someone Who Travel: No Recent Infectious Disease Expo: No Recent Hopitalizations: No Immunizations Up To Date Tetanus Booster (TDap): Unknown Date of Pneumonia Vaccine: Mar 27, 2015 Seasonal Allergies Seasonal Allergies: No Surgeries History of Surgeries: Yes (RIGHT HAND / TENDON REPAIR) Surgeries: Breast, Orthopedic Respiratory History of Respiratory Disorde: No Cardiovascular History of Cardiac Disorders: Yes Cardiac Disorders: Hypertension Neurological History of Neurological Disord: No Reproductive System Hx Reproductive Disorders: Yes (CERVICAL DYSPLASIA) Sexually Transmitted Disease: No HIV/AIDS: No Female Reproductive Disorders: Denies Genitourinary History of Genitourinary Disor: No Gastrointestinal History of Gastrointestinal Di: No (DIVERTICULITIS) Musculoskeletal History of Musculoskeletal Dis: No (RIGHT HAND/WRIST SURGERY, LEFT KNEE SURGERY) Endocrine History of Endocrine Disorders: No (GESTATIONAL DIABETES) HEENT History of HEENT Disorders: No Loss of Vision: Bilateral Cancer History of Cancer: No Psychosocial History of Psychiatric Problem: Yes Behavioral Health Disorders: Anxiety, Depression Integumentary History of Skin or Integumenta: No Blood Transfusions History of Blood Disorders: No Adverse Reaction to a Blood Tr: No (N/A) Family Medical History Significant Family History: Diabetes (mother) Review of Systems-General Constitutional: No diaphoresis, No malaise, No weakness EENTM: No blurred vision, No double vision, No mouth pain, No mouth swelling, No epistaxis Respiratory: No dyspnea on exertion, No orthopnea, No phlegm, No short of breath Cardiovascular: No chest pain, No palpitations Gastrointestinal: No abdominal pain, No nausea, No vomiting Genitourinary: No dysuria, No frequency, No hematuria Musculoskeletal: joint pain, muscle pain, muscle stiffness Skin: see HPI; No hx of skin cancer Psychiatric/Neurological: Anxiety, Depressed; Denies Seizure, Denies Tremors Other pt denies any hx of abnormal bleeding or bruising Physical Exam-General Problems Physical Exam Vital Signs Vital Signs - First Documented 04/09/20 04/09/20 02:11 04:46 Temp 37.7 Pulse 98 Resp 18 B/P (MAP) 137/91 (106) Pulse Ox 97 O2 Delivery Room Air Capillary Refill : Less Than 3 Seconds General Appearance: WD/WN, mild distress Eyes: Bilateral Eye PERRL, Bilateral Eye EOMI HEENT: pharynx normal; No scleral icterus (R), No scleral icterus (L) Neck: non-tender, supple Respiratory: chest non-tender, lungs clear, normal breath sounds, no respiratory distress, no accessory muscle use Cardiovascular: regular rate, rhythm, no murmur Gastrointestinal: normal bowel sounds, non tender, soft, no organomegaly Extremities: no calf tenderness, normal capillary refill, other (just below left inguinal crease there is large area of erythema and firmness, tender to the touch, feels like abscess. runs from mid anterior to mid posterior of thigh) Neurologic/Psychiatric: gold nib grinder II-XII nml as tested, no motor/sensory deficits, alert, normal mood/affect, oriented x 3 Skin: normal color, warm/dry Lymphatic: no adenopathy (neck, axilla or groin) Data Review Labs Laboratory Tests 04/09/20 02:40: Urine Color YELLOW, Urine Clarity SL CLOUDY, Urine pH 6.0, Urine Specific [place] >=1.030, Urine Protein 1+H, Urine Glucose (UA) NEGATIVE, Urine Ketones NEGATIVE, Urine Nitrite NEGATIVE, Urine Bilirubin NEGATIVE, Urine Urobilinogen 1.0, Urine Leukocyte Esterase NEGATIVE, Urine RBC (Auto) 1+H, Urine RBC 0-2, Urine WBC RARE, Urine Squamous Epithelial Cells 25-50H, Urine Crystals NONE, Urine Bacteria FEWH, Urine Casts NONE, Urine Mucus LARGEH, Urine Culture Indicated CULTURE PENDING 04/09/20 02:45: White Blood Count 10.3, Red Blood Count 4.49, Hemoglobin 13.4, Hematocrit 40, Mean Corpuscular Volume 89, Mean Corpuscular Hemoglobin 30, Mean Corpuscular Hemoglobin Concent 33, Red Cell Distribution Width 13.8, Platelet Count 258, Mean Platelet Volume 10.4, Neutrophils (%) (Auto) 76H, Lymphocytes (%) (Auto) 13, Monocytes (%) (Auto) 10, Eosinophils (%) (Auto) 1, Basophils (%) (Auto) 0, Neutrophils # (Auto) 7.8, Lymphocytes # (Auto) 1.4, Monocytes # (Auto) 1.0, Eosinophils # (Auto) 0.1, Basophils # (Auto) 0.0, Prothrombin Time 13.0, INR Comment 1.0, Activated Partial Thromboplast Time 29, Sodium Level 137, Potassium Level 2.9L, Chloride Level 102, Carbon Dioxide Level 25, Anion Gap 10, Blood Urea Nitrogen 6L, Creatinine 3.51H, Estimat Glomerular Filtration Rate 14, BUN/Creatinine Ratio 2, Glucose Level 153H, Lactic Acid Level 1.52, Calcium Level 11.2H, Corrected Calcium 11.3H, Total Bilirubin 0.3, Aspartate Amino Transf (AST/SGOT) 23, Alanine Aminotransferase (ALT/SGPT) 19, Alkaline Phospha tase 59, C-Reactive Protein High Sensitivity 10.79H, Total Protein 7.0, Albumin 3.9, Serum Test, Qualitative NEGATIVE Assessment/Plan Assessment/Plan Assessment/Plan Left leg Cellulitis/Abscess HTN Pt has spreading cellulitis on her left leg, almost into the groin with no signs of necrosis and feels firm. Suspected abscess and will need Incision and Drainage so it does not get worse. Pt is being admitted, started on IV ABX, pain control and IV fluids. Plan to take her to the OR for I&D with possible packing and possible debridement. This needs to be done before this gets worse; plus, abscess won't get better until it is drained and then the ABX work better. Discussed the procedure with pt; risks and complications not limited to pain, bleeding, infection and scar. All questions answered to her satisfaction. Clinical Quality Measures DVT/VTE Risk/Contraindication: Risk Factor Score Per Nursin RFS Level Per Nursing on Admit: 4+=Very High DARIEN JEFF DO Apr 09, 2020 10:14
[2020-04-09] MEDS ORDERED: BUP/EPI 0.5% 1:200,000 (SENSORCAINE) 30 ML VIAL ONE (10:16)
[2020-04-09] MEDS ORDERED: LACTATED RINGERS 1,000 ML IV PRN (10:30)
[2020-04-09] MEDS ORDERED: fentaNYL INJECTION 100 MCG/2 ML AMP ONE (10:37)
[2020-04-09] MEDS ORDERED: MIDAZOLAM 2 MG/2 ML (VERSED) VIAL ONE (10:38)
[2020-04-09] MEDS ORDERED: ONDANSETRON 4 MG/2 ML (SDV) Z0FRAN ONE (11:06)
[2020-04-09] MEDS ORDERED: proPOfol 200 MG/20 ML (DIPRIVAN) VIAL IV ONE (11:06)
[2020-04-09] MEDS ORDERED: LIDOCAINE PF 2% 5 ML (XYLOCAINE) VIAL ONE (11:06)
[2020-04-09] MEDS ORDERED: SEVOFLURANE (ULTANE) 15 ML INHAL SOLN ONE ×2 (11:06)
--- NOTE | 2020-04-09 11:16 | Progress Note-Post Operative ---
Post-Operative Progess Note Surgeon (s)/Supervisor Cutting And Boning (s) Surgeon DARIEN JEFF DO Supervisor Cutting And Boning: none Pre-Operative Diagnosis Left leg cellulitis/abscess Post-Operative Diagnosis same Procedure & Operative Findings Date of Procedure 04/09/20 Procedure Performed/Findings I&D with packing Anesthesia Type GET Estimated Blood Loss Estimated blood loss (mL): scant Specimens/Packing Specimens Removed abscess culture DARIEN JEFF DO Apr 09, 2020 11:16
[2020-04-09] MEDS ORDERED: MEPERIDINE (DEMEROL) INJ 50 MG/ML IVP STA (12:27)
[2020-04-09] MEDS ORDERED: MEPERIDINE (DEMEROL) INJ 100 MG/ML IV STA (12:32)
[2020-04-09] MEDS ORDERED: CYCLOBENZAPRINE 10 MG (FLEXERIL) TAB PO PRN (13:30)
[2020-04-09] MEDS ORDERED: ALPRAZolam 1 MG (XANAX) TAB PO PRN (13:30)
[2020-04-09] MEDS: lisINopril 20 MG (PRINIVIL) TABLET PO SCH (14:27)
[2020-04-09] MEDS: meTOprolol SUCCINATE 100 MG (TOPROL XL) TAB PO SCH (14:27)
[2020-04-09] MEDS: KETOROLAC 15 MG/ML VIAL IVP PRN (14:28)
[2020-04-09] MEDS: PIPERACILLIN/TAZO 4.5 GM/NS 100 ML IV SCH ×2 (16:52)
--- NOTE | 2020-04-09 17:03 | OPERATIVE REPORT ---
DATE OF SERVICE: PREOPERATIVE DIAGNOSIS: Left leg cellulitis, abscess. POSTOPERATIVE DIAGNOSIS: Left leg cellulitis, abscess. PROCEDURE: Incision and drainage with packing of left leg abscess. SURGEON: Elpidio Mccann DO. PRIMARY PRODUCTS INSPECTORS: None. ANESTHESIA: General endotracheal tube. SPECIMEN: Culture from abscess. BLOOD LOSS: Scant. FLUIDS: Per anesthesia. POSTOPERATIVE CONDITION: Stable. INDICATION FOR PROCEDURE: The patient is a 39-year-old female who came in early this morning with a leg abscess that she had a knot in the leg getting worse. FINDINGS: The patient had an abscess that was into the groin. The cellulitis area measured 16 x 16 cm. The abscess cavity was down and onto the muscle. PROCEDURE NOTE: After informed consent was obtained, the patient was brought to the operating room, placed on table in the lithotomy position. She was sterilely prepped and draped in normal fashion. Local lidocaine was used to infiltrate the skin above this abscess that was firm area, also felt like she had a firm area in the inguinal crease, but the cellulitis area was measured about 16 x 16 cm. I made an incision just below the inguinal crease after infiltrating with local, made an incision with a #15 blade, carried down through the skin into subcutaneous tissue, immediately got out purulent fluid. Culture was obtained and then expressed all of this fluid. This pocket went right down onto the muscle of the inner thigh. I able to then track up into the inguinal crease and down a little bit. This measured about 14 cm long, about 2 cm deep and about 4 cm wide. There was some necrotic fat, but no other necrotic tissue, copiously irrigated with normal saline. There was not really much bleeding and at this point, I then elected to pack with one inch iodoform packing. I used half of a bottle to pack this area. Area was cleaned and dried, dressing placed. The patient tolerated the procedure. Sponge, instrument and needle count correct at the end of the case. Job ID: [id number] DocumentID: [id number] Dictated Date: 04/09/2020 11:10:03 Numerical Control Machine Machinist Date: 04/09/2020 17:03:17 Dictated By: ELPIDIO MCCANN DO
[2020-04-10] VITALS: BP 117/75
[2020-04-10] MEDS: fentaNYL INJECTION 100 MCG/2 ML AMP IV PRN (00:43)
[2020-04-10] MEDS: KETOROLAC 15 MG/ML VIAL IVP PRN (03:36)
[2020-04-10] MEDS: D5 1/2 NS W/KCL 40 MEQ/L 1,000 ML IV SCH ×2 (03:37→05:41)
[2020-04-10 04:00] VITALS: BP 113/72
[2020-04-10] MEDS ORDERED: VANCOMYCIN 500 MG/NS 100 ML IV SCH ×2 (04:00)
[2020-04-10] MEDS ORDERED: VANCOMYCIN 1 GM/NS 250 ML IVPB IV SCH ×2 (04:00)
[2020-04-10] MEDS: PIPERACILLIN/TAZO 4.5 GM/NS 100 ML IV SCH ×2 (04:47)
--- NOTE | 2020-04-10 07:15 | Progress Note ---
Subjective Date Seen by a Provider: Apr 10, 2020 Time Seen by a Provider: 07:00 Subjective/Events-last exam Patient reports less discomfort in the inguinal area on the left side of thigh. She slept fairly well throughout the evening. Focused Exam Lactate Level 04/09/20 02:45: Lactic Acid Level 1.52 Objective Exam Vital Signs Date Time Temp Pulse Resp B/P (MAP) Pulse Ox O2 Delivery O2 Flow Rate FiO2 04/10/20 04:00 36.2 69 16 113/72 (86) 90 Room Air 04/10/20 00:00 38.0 86 16 117/75 (89) 95 Room Air 04/09/20 20:00 Room Air 04/09/20 19:58 37.2 85 16 101/67 (78) 95 Room Air 04/09/20 16:08 36.8 87 16 111/71 (84) 96 Room Air 04/09/20 13:00 36.5 98 16 167/90 (115) 90 Room Air 04/09/20 12:20 Room Air 04/09/20 12:10 36.5 18 155/98 (117) 95 Room Air 04/09/20 12:05 Room Air 04/09/20 12:00 14 144/99 (114) 97 Room Air 04/09/20 11:51 Room Air 04/09/20 11:50 18 142/96 (111) 100 OxyMask 10 04/09/20 11:40 12 115/80 (92) 100 OxyMask 10 04/09/20 11:35 OxyMask 10 04/09/20 11:30 16 128/85 (99) 100 OxyMask 10 04/09/20 11:20 OxyMask 10 04/09/20 11:20 36.2 18 103/74 (84) 100 OxyMask 10 04/09/20 08:37 97 Room Air 04/09/20 08:00 36.7 78 16 151/90 (110) 98 Room Air I & O 04/10/20 07:00 Intake Total 4652 ml Output Total 800 ml Balance 3852 ml Capillary Refill : Less Than 3 Seconds General Appearance: No Apparent Distress Respiratory: Lungs Clear Extremity: Other (The left inguinal area covered with surgical dressing) Results Lab Laboratory Tests 04/09/20 10:45: Coronavirus (COVID-19)(PCR) Negative Microbiology 04/09/20 Gram Stain - Final, Resulted 04/09/20 Anaerobic Culture, Resulted Pending 04/09/20 Surgical Culture, Resulted Pending 04/09/20 MRSA Screen - Final, Complete MRSA not isolated Assessment/Plan Assessment/Plan Assess & Plan/Chief Complaint 1. Cellulitis of left thigh with abscess formation -admitted through ED and placed on Vanc and zosyn -Dr Mccann seen patient in the emergency department on presentation. 04/10 -Status post incision and drainage day number 1 -Continue with vancomycin and Zosyn -Awaiting culture results Clinical Quality Measures Admission Status Admission Dx 1. Cellulitis of left thigh with abscess formation DVT/VTE Risk/Contraindication: Risk Factor Score Per Nursin RFS Level Per Nursing on Admit: 4+=Very High PATIENCE JOHNSTON MD Apr 10, 2020 07:14
[2020-04-10 08:03] VITALS: BP 120/76
--- NOTE | 2020-04-10 08:28 | Physician Query Clarification ---
PQ-Conflicting Diagnosis Admission/Discharge Admission Date: Apr 09, 2020 at 04:06 Discharge Date: The medical record reflects the following clinical scenario: History/Risk Factors: Cellulitis/Abscess of left thigh/groin. Clinical Findings: T 37.7, P 98, Resp 18, BP 137/91, WBC 10.3, Lactic acid 1.52. Treatment: Incision and drainage and packing of abscess. IV Vancomycin HCI 750mg, IV Zosyn 4.5gm. Question: Do you agree with the impression of the Sepsis per Dr. Sheridan, ED physician? Please document a response in Progress Note or Discharge Summary. 1. Yes 2. No 3. Other, with explanation of clinical findings 4. Clinically undetermined, no explanation for clinical findings. PHYSICIAN RESPONSE Do you agree w/Consulting Dx?: Other,explanation/clincal findings Explanation of clincal finding patient clinically had cellulitis with a thigh abscess that required I&D Please remember a lack of response to the above will prompt a phone page by CDI/Coding staff. In responding to this query, please exercise your independent professional judgment. The purpose of this communication is to more accurately reflect the complexity of your patients condition. The fact that a question is asked does not imply that any particular answer is desired or expected. Thank you for your timely response to this clarification. Requestors name: Carina Mack [facility] Phone # ext [phone] or [phone] THIS PHYSICIAN QUERY FORM IS A PERMANENT PART OF THE MEDICAL RECORD CARINA MACK Apr 10, 2020 08:28 PATIENCE JOHNSTON MD Apr 18, 2020 06:46
[2020-04-10] MEDS: meTOprolol SUCCINATE 100 MG (TOPROL XL) TAB PO SCH (09:12)
[2020-04-10] MEDS: lisINopril 20 MG (PRINIVIL) TABLET PO SCH (09:12)
[2020-04-10] MEDS ORDERED: VARE1TAB22 PO (09:50)
[2020-04-10] MEDS ORDERED: CITA10TA7 PO (09:50)
[2020-04-10] MEDS ORDERED: CYCL10TA9 PO (09:50)
[2020-04-10] MEDS ORDERED: MTP100TCR PO (09:50)
[2020-04-10] MEDS ORDERED: AMLO5TAB9 PO (09:50)
[2020-04-10] MEDS ORDERED: NORG1TAB86 PO (09:50)
--- NOTE | 2020-04-10 10:13 | NUR ---
SPOKE WITH THE PT AND WENT THRU THE EXT MED HISTORY TO COMPLETE THE MED REC PT WAS ABLE TO TELL ME WHEN/HOW MEDS ARE TAKEN AND THE INFORMATION MATCHES THE EXT MED HISTORY (ALL MEDS ARE LISTED ON THE EXT MED HISTORY) PT DENIES TAKING ANY OTC MEDS
[2020-04-10 11:29] VITALS: BP 135/81
--- NOTE | 2020-04-10 12:57 | Progress Note - Surgery ---
Subjective Time Seen by a Provider: 11:26 Subjective/Events-last exam Pt seen and examined, states pain controlled and would like to go home. Review of Systems General: No Chills, No Night Sweats Pulmonary: No Dyspnea, No Cough Gastrointestinal: No: Nausea, Vomiting Focused Exam Lactate Level 04/09/20 02:45: Lactic Acid Level 1.52 Objective Exam Vital Signs Date Time Temp Pulse Resp B/P (MAP) Pulse Ox O2 Delivery O2 Flow Rate FiO2 04/10/20 11:29 36.7 64 18 135/81 (99) 97 Room Air 04/10/20 08:03 37.0 64 16 120/76 (91) 93 Room Air 04/10/20 04:00 36.2 69 16 113/72 (86) 90 Room Air 04/10/20 00:00 38.0 86 16 117/75 (89) 95 Room Air 04/09/20 20:00 Room Air 04/09/20 19:58 37.2 85 16 101/67 (78) 95 Room Air 04/09/20 16:08 36.8 87 16 111/71 (84) 96 Room Air 04/09/20 13:00 36.5 98 16 167/90 (115) 90 Room Air I & O 04/10/20 07:00 Intake Total 4652 ml Output Total 800 ml Balance 3852 ml Capillary Refill : Less Than 3 Seconds General Appearance: No Apparent Distress, WD/WN Respiratory: Lungs Clear, No Accessory Muscle Use, No Respiratory Distress Cardiovascular: Regular Rate, Rhythm, No Murmur Extremity: Other (minimal erythema) Results Lab Microbiology 04/09/20 Gram Stain - Final, Resulted 04/09/20 Anaerobic Culture, Resulted Pending 04/09/20 Surgical Culture, Resulted Pending 04/09/20 MRSA Screen - Final, Complete MRSA not isolated Assessment/Plan Assessment/Plan Assessment/Plan S/P Left thigh I&D DC IV and DC home with PO ABX, change dressing daily with iodophor Clinical Quality Measures DVT/VTE Risk/Contraindication: Risk Factor Score Per Nursin RFS Level Per Nursing on Admit: 4+=Very High DARIEN JEFF DO Apr 10, 2020 12:57
[2020-04-10] MEDS ORDERED: SULF1TAB35 PO (13:00)
--- NOTE | 2020-04-10 13:02 | Discharge Inst-Surgical ---
Discharge Inst-Surgical Depart Medication/Instructions New, Converted or Re-Newed RX: Transmitted to Pharmacy Patient Instructions Follow up Appt: Make appointment for 1 week. [phone] Instructions: No strenuous activity. May shower in 24 hours, no tub bath or soaking. Use incentive spirometer at home as directed. No Smoking Skin/Wound Care: May remove bandages in am. You need to change Iodophor packing daily. Symptoms to Report: Appetite Changes, Extremity Discoloration, Numbness/Tingling, Swelling Increased, Bleeding Excessive, Eyesight Changes, Pain Increased, Urine Color Change, Constipation(Persistent), Fever over 101 degree F, Pain/Pressure in chest, Urinating Difficulty, Cough Up/Vomit Blood, Heart Beat Irreg/Pounding, Pain/Pressure in jaw, Cramps in feet or legs, Lightheadedness, Pain/Pressure in shoulder, Diarrhea(Persistent), Memory Changes Suddenly, Questions/Concerns, Weight gain consecutive days, Dizziness/Fainting, Nausea/Vomiting, Shortness of Breath, Weight gain over 2 pounds If questions or concerns contact your physician Or seek help at emergency department. Activity Activity as Tolerated: Yes Activity Instructions: Avoid Stress to Incision Driving Instructions: You May Drive Diet Discharge Diet: No Restrictions Diet After 24 Hours: Clear Liquid if Nauseous If Any Problems/Questions/Issu: Contact Your Physician, Go to Emergency Room Skin/Wound Care Infection Signs and Symptoms: Increased Redness, Foul Odor of Wound, Increased Drainage, Skin Itchy or Has a Rash, Increased Swelling, Temperature Above 101 F Wound Care Comment: Can go to Dr. Mccann's office to get help with daily dressing changes. Bathing Instructions: DARIEN Nieto DO Apr 10, 2020 13:02
--- NOTE | 2020-04-10 14:26 | Anesthesia-General Post-Op ---
General Patient Condition Mental Status/LOC: Same as Preop Cardiovascular: Satisfactory Nausea/Vomiting: Absent Respiratory: Satisfactory Pain: Controlled Complications: Absent Post Op Complications Complications None Follow Up Care/Instructions Patient Instructions None needed. Anesthesia/Patient Condition Patient Condition Patient is doing well, no complaints, stable vital signs, no apparent adverse anesthesia problems. RADHA HENNESSY DO Apr 10, 2020 14:26
--- NOTE | 2020-04-10 14:49 | NUR ---
DC'D PER WC WITH SO AND PSYCHIATRIC TECHNICIAN. RX AND INST AND VERBALIZED UNDERSTANDING. DRSGS SENT HOME WITH PT, BUT ANGRY THAT "BOXES" OF DRESSINGS COULD NOT BE SENT.
[2020-04-11] MEDS ORDERED: TROUGH ORDER-PHARMACY XX NR (03:00)
== END 2020-04-10 14:57 | disposition home or self-care (01) | DRG 580 ==
LOC: EDUNIT# 01:59 → ER 02:01 → 4TH 04:06
PROVIDERS: ADMIT Family Medicine; ATTEND Family Medicine
PROC: 0J9M0ZZ Drainage of Left Upper Leg Subcutaneous Tissue and Fascia, Open Approach (ICD-10-PCS; principal; 2020-04-09 10:38)
DX: L02.214 Cutaneous abscess of groin (principal); L03.116 Cellulitis of left lower limb; I10 Essential (primary) hypertension; F17.210 Nicotine dependence, cigarettes, uncomplicated; F41.9 Anxiety disorder, unspecified; F32.9 Major depressive disorder, single episode, unspecified
CPT/HCPCS: 36415; 71045; 80053; 81000; 83605; 84703; 85025; 85610; 85730; 86141; 87040; 87070; 87075; 87076; 87077; 87081; 87088; 87185; 87205; 87635; 96365; 96367; 96375; G0378

== ENCOUNTER → 2020-04-13 | Outpatient (CLI) | payer MEDICAID ==
[~2020-04-13] MED LIST changes: +AMLO5TAB9 PO; +CITA10TA12 PO; +CITA10TA7 PO; +MTP100TCR PO; +NORG1TAB86 PO; +SULF1TAB35 PO; +VARE1TAB22 PO
[2020-04-13 14:58] LABS: BILIRUBIN,URINE NEGATIVE (NEGATIVE); CLARITY,URINE CLEAR; COLOR,URINE YELLOW; GLUCOSE, URINE (UA) NEGATIVE (NEGATIVE); KETONES,URINE NEGATIVE (NEGATIVE); LEUKOCYTE ESTERASE ,URINE 2+ (NEGATIVE); NITRITE,URINE NEGATIVE (NEGATIVE); PROTEIN,URINE NEGATIVE (NEGATIVE)
[2020-04-13 15:12] LABS: BACTERIA,URINE FEW /HPF
== END ==
LOC: LAB 14:24
PROVIDERS: ATTEND Surgery
DX: R30.0 Dysuria (principal)
CPT/HCPCS: 81000; 87088

== ENCOUNTER → 2020-04-17 | Outpatient (CLI) | payer MEDICAID ==
--- NOTE | 2020-04-17 15:56 | Diagnostic Imaging Report ---
INDICATION: Left groin wound. Patient is status post recent incision and drainage. FINDINGS: Sonographic interrogation of the area of left groin wound was performed. There is a heterogeneous area of hypoechogenicity just cephalad to the left groin wound measuring 2.9 x 2.3 x 1.6 cm. There is some vascularity along the margins. This most likely represents phlegmonous tissue. No well-formed fluid collection or abscess is seen at this time. IMPRESSION: Probable inflammatory tissue just superior to the patient's left groin wound. No well-formed abscess is identified at this time. Continued follow-up clinically and perhaps with ultrasound would be recommended. Dictated by: Dictated on workstation # [id number]
== END ==
LOC: RAD 14:18
PROVIDERS: ATTEND Surgery
DX: T81.89XA Other complications of procedures, not elsewhere classified, initial encounter (principal)
CPT/HCPCS: 76881

== ENCOUNTER 2020-08-03 01:58 | Emergency (ER) | payer MEDICAID ==
[~2020-08-03] VITALS: Ht 153 cm; Wt 60.1 kg
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
[2020-08-03] MEDS ORDERED: MELO15TA14 PO (04:14)
[2020-08-03] MEDS ORDERED: CYCL10TA9 PO (04:14)
[2020-08-03] MEDS ORDERED: KETOROLAC 60 MG/2 ML VIAL IM ONE (04:15)
[2020-08-03 04:18] VITALS: BP 145/100
--- NOTE | 2020-08-03 06:23 | Diagnostic Imaging Report ---
PROCEDURE: CT head and CT cervical spine without contrast. TECHNIQUE: Multiple contiguous axial images were obtained through the brain and cervical spine without the use of intravenous contrast. Sagittal and coronal reformations through the cervical spine were then performed. Auto Exposure Controls were utilized during the CT exam to meet ALARA standards for radiation dose reduction. INDICATION: Headache. FINDINGS: The ventricles and sulci are within normal limits. There is no hydrocephalus or cerebral edema. There is no midline shift or mass effect. There is no intracranial mass, hemorrhage or extra-axial fluid collection. The visualized paranasal sinuses and mastoid air cells are clear. No fractures are identified. CERVICAL SPINE: Alignment is normal. There is no fracture or traumatic subluxation. The prevertebral soft tissues are within normal limits. The odontoid is intact and the lateral masses are well aligned. There are no soft tissue abnormalities. IMPRESSION: 1. No acute intracranial process. 2. No focal abnormality in the cervical spine. Dictated by: Dictated on workstation # [id number]
== END 2020-08-03 04:24 | disposition home or self-care (01) ==
LOC: EDUNIT# 01:58 → ER 02:02
DX: S09.90XA Unspecified injury of head, initial encounter (principal); S16.1XXA Strain of muscle, fascia and tendon at neck level, initial encounter; I10 Essential (primary) hypertension; F41.9 Anxiety disorder, unspecified; F32.9 Major depressive disorder, single episode, unspecified; R40.2142 Coma scale, eyes open, spontaneous, at arrival to emergency department; R40.2252 Coma scale, best verbal response, oriented, at arrival to emergency department; R40.2362 Coma scale, best motor response, obeys commands, at arrival to emergency department; F17.210 Nicotine dependence, cigarettes, uncomplicated; Z85.41 Personal history of malignant neoplasm of cervix uteri; W01.198A Fall on same level from slipping, tripping and stumbling with subsequent striking against other object, initial encounter
CPT/HCPCS: 70450; 72125

== ENCOUNTER 2020-08-03 17:02 | Emergency (ER) | payer MEDICAID ==
[~2020-08-03] VITALS: Ht 154.9 cm; Wt 60.7 kg
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
[2020-08-03] MEDS ORDERED: HYDROcodone/APAP 5 MG/325 MG (LORTAB) TAB PO ONE (17:30)
[2020-08-03 17:42] LABS: BASOPHILS # (AUTO) 0.1 10^3/uL (0.0-0.1); BASOPHILS % (AUTO) 0 % (0-10); EOSINOPHILS # (AUTO) 0.1 10^3/uL (0.0-0.3); EOSINOPHILS % (AUTO) 1 % (0-10); HEMATOCRIT 39 % (35-52); HEMOGLOBIN 12.6 g/dL (11.5-16.0); LYMPHOCYTES % (AUTO) 11 % (12-44); MEAN CORPUSCULAR HEMOGLOBIN 29 pg (25-34); MEAN CORPUSCULAR HGB CONC 33 g/dL (32-36); MEAN CORPUSCULAR VOLUME 90 fL (80-99); MEAN PLATELET VOLUME 10.2 fL (9.0-12.2); MONOCYTES # (AUTO) 0.8 10^3/uL (0.0-1.0); MONOCYTES % (AUTO) 5 % (0-12); NEUTROPHILS # (AUTO) 14.3 10^3/uL (1.8-7.8); NEUTROPHILS % (AUTO) 82 % (42-75); PLATELET COUNT 281 10^3/uL (130-400); WHITE BLOOD COUNT 17.3 10^3/uL (4.3-11.0)
--- NOTE | 2020-08-03 17:45 | NUR ---
Edie called with pt's permission. To call Edie back after pt returns from CT.
[2020-08-03 17:52] LABS: ALBUMIN 4.2 GM/DL (3.2-4.5); CHLORIDE 106 MMOL/L (98-107); POTASSIUM 3.2 MMOL/L (3.6-5.0); SODIUM 139 MMOL/L (135-145)
[2020-08-03 17:55] LABS: GLUCOSE 103 MG/DL (70-105); TOTAL PROTEIN 7.2 GM/DL (6.4-8.2)
[2020-08-03 17:56] LABS: CARBON DIOXIDE 24 MMOL/L (21-32)
[2020-08-03 17:57] LABS: BILIRUBIN,TOTAL 0.5 MG/DL (0.1-1.0)
[2020-08-03 17:58] LABS: ALKALINE PHOSPHATASE 61 U/L (40-136); CREATININE SERUM 0.89 MG/DL (0.60-1.30); GFR ESTIMATED > 60
[2020-08-03 17:59] LABS: BUN/CREATININE RATIO 13
[2020-08-03] MEDS ORDERED: HOLD METFORMIN - RECEIVED CONTRAST 20 ML VIAL IV SCH (18:00)
[2020-08-03] MEDS ORDERED: NS 100 ML (IVPB) BAG IV ONE (18:00)
[2020-08-03] MEDS ORDERED: IOHEXOL 350 MG/ML 100 ML (OMNIPAQUE 350) VIAL IV ONE (18:00)
[2020-08-03 18:01] LABS: ALANINE AMINOTRANSFERASE 12 U/L (0-55)
[2020-08-03 18:17] LABS: LYMPHOCYTES % (MANUAL) 11 %; MONOCYTES % (MANUAL) 8 %; NEUTROPHILS % (MANUAL) 81 %
[2020-08-03 18:18] LABS: RBC MORPH NORMAL
--- NOTE | 2020-08-03 18:27 | NUR ---
Pt on phone with Edie at this time.
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
[2020-08-03] MEDS ORDERED: RX-HYDROCODONE/APAP 5/325 MG #4 TAB PK PO ONE (19:08)
[2020-08-03] MEDS ORDERED: RX-HYDROCODONE/APAP 5/325 MG #4 TAB PK PO PRN (19:15)
[2020-08-03 19:19] VITALS: BP 132/99
== END 2020-08-03 19:19 | disposition home or self-care (01) ==
LOC: EDUNIT# 17:02 → ER 17:04
DX: S00.531A Contusion of lip, initial encounter (principal); S10.83XA Contusion of other specified part of neck, initial encounter; I10 Essential (primary) hypertension; F41.9 Anxiety disorder, unspecified; F32.9 Major depressive disorder, single episode, unspecified; Z85.41 Personal history of malignant neoplasm of cervix uteri; Z91.040 Latex allergy status; Z77.22 Contact with and (suspected) exposure to environmental tobacco smoke (acute) (chronic); Y04.8XXA Assault by other bodily force, initial encounter
CPT/HCPCS: 36415; 70450; 70491; 74177; 80053; 84703; 85007; 85027

== ENCOUNTER 2020-08-24 01:06 | Inpatient (IN) | payer MEDICAID ==
[~2020-08-24] VITALS: Ht 154 cm; Wt 56.8 kg
[~2020-08-24 01:06] MED LIST changes: +AMLO-250 PO; -AMLO5TAB9 PO
--- NOTE | 2020-08-24 01:17 | ED Chest Pain ---
General Stated Complaint: CHEST PAIN Source: patient Exam Limitations: no limitations History of Present Illness Date Seen by Provider: Aug 24, 2020 Time Seen by Provider: 01:15 Initial Comments 40-year-old female presents with substernal and right-sided chest pain. Reports that it started little while ago. It gets worse when she takes a deep breath. She states that she just finished up an antibiotic for a bronchitis and cough. She reports she's been having a cough for couple weeks. Patient denies any shortness of breath. She denies any loss of sense of taste or smell, nausea, vomiting, diarrhea, fevers or chills. The pain does not radiate. Allergies and Home Medications Allergies Coded Allergies: latex (Verified Allergy, Severe, SEVERE SWELLING, 04/07/18) Home Medications Alprazolam 1 Mg Tablet, 1 MG PO BID PRN for ANXIETY, (Reported) Amlodipine Besylate 5 Mg Tablet, 5 MG PO DAILY, (Reported) Citalopram Hydrobromide 10 Mg Tablet, 10 MG PO HS, (Reported) Cyclobenzaprine HCl 10 Mg Tablet, 10 MG PO TID PRN for MUSCLE SPASMS, (Reported) Cyclobenzaprine HCl 10 Mg Tablet, 10 MG PO Q8H PRN for SPASMS Prescribed by: MIRIAN HARRISON on 08/03/20413 Lisinopril 20 Mg Tablet, 20 MG PO DAILY, (Reported) Meloxicam 15 Mg Tablet, 15 MG PO DAILY Prescribed by: MIRIAN HARRISON on 08/03/20413 Metoprolol Succinate 100 Mg Tab.er.24h, 100 MG PO DAILY, (Reported) Norgestimate-Ethinyl Estradiol 1 Each Tablet, 1 EA PO DAILY, (Reported) Sulfamethoxazole/Trimethoprim 1 Each Tablet, 1 EACH PO BID Prescribed by: DARIEN JEFF on 04/10/20 1300 Varenicline Tartrate 1 Mg Tablet, 1 MG PO BID, (Reported) Patient Home Medication List Home Medication List Reviewed: Yes Review of Systems Review of Systems Constitutional: No chills, No fever, No malaise, No weakness Respiratory: Cough; Denies Shortness of Air, Denies SOA With Exertion, Denies SOA at Rest Cardiovascular: See HPI, Chest Pain; Denies Irregular Heart Rate, Denies Lightheadedness, Denies Palpitations Gastrointestinal: Denies Abdominal Pain, Denies Diarrhea, Denies Nausea, Denies Vomiting Musculoskeletal: no symptoms reported Skin: no symptoms reported Psychiatric/Neurological: No Symptoms Reported Endocrine: No Symptoms Reported Past Veygawy-Inlgnv-Qdfhqi Hx Past Med/Social Hx: Reviewed Nursing Past Med/Soc Hx Patient Social History Type Used: Cigarettes Former Smoker, Quit: Oct 27, 2016 2nd Hand Smoke Exposure: Yes Recent Foreign Travel: No Contact w/Someone Who Travel: No Recent Hopitalizations: No Immunizations Up To Date Tetanus Booster (TDap): Unknown Date of Pneumonia Vaccine: Mar 27, 2015 Seasonal Allergies Seasonal Allergies: No Past Medical History Surgeries: Yes (RIGHT HAND / TENDON REPAIR; CERVICAL SURGERY FOR DYSPLASIA) Breast, Orthopedic Respiratory: No Currently Using CPAP: No Currently Using BIPAP: No Cardiac: Yes Hypertension Neurological: No Reproductive Disorders: Yes (CERVICAL DYSPLASIA) Female Reproductive Disorders: Denies Sexually Transmitted Disease: No HIV/AIDS: No Genitourinary: No Gastrointestinal: No Musculoskeletal: No Endocrine: No HEENT: Yes (GLASSES ) Loss of Vision: Bilateral Cancer: Yes Cervical Did You Recieve Any Treatments: Yes What Type of Treatment Did You: Surgical Intervention Psychosocial: Yes Anxiety, Depression Integumentary: No Blood Disorders: No Adverse Reaction/Blood Tranf: No (N/A) Family Medical History Diabetes Physical Exam Vital Signs Vital Signs - First Documented 08/24/20 01:06 Temp 36.2 Pulse 80 Resp 18 B/P (MAP) 174/103 (126) Pulse Ox 97 O2 Delivery Room Air Capillary Refill : Height, Weight, BMI Height: 5'1.00" Weight: 146lbs. 9.0oz. 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 Norm as Tested Progress/Results/Core Measures Results/Orders Lab Results Laboratory Tests Test 08/24/20 01:10 08/24/20 03:05 Range/Units White Blood Count 12.5 H 4.3-11.0 10^3/uL Red Blood Count 4.53 3.80-5.11 10^6/uL Hemoglobin 13.0 11.5-16.0 g/dL Hematocrit 41 35-52 % Mean Corpuscular Volume 90 80-99 fL Mean Corpuscular Hemoglobin 29 25-34 pg Mean Corpuscular Hemoglobin Concent 32 32-36 g/dL Red Cell Distribution Width 14.0 10.0-14.5 % Platelet Count 326 130-400 10^3/uL Mean Platelet Volume 10.3 9.0-12.2 fL Immature Granulocyte % (Auto) 0 % Neutrophils (%) (Auto) 61 42-75 % Lymphocytes (%) (Auto) 29 12-44 % Monocytes (%) (Auto) 6 0-12 % Eosinophils (%) (Auto) 2 0-10 % Basophils (%) (Auto) 1 0-10 % Neutrophils # (Auto) 7.6 1.8-7.8 10^3/uL Lymphocytes # (Auto) 3.7 1.0-4.0 10^3/uL Monocytes # (Auto) 0.8 0.0-1.0 10^3/uL Eosinophils # (Auto) 0.3 0.0-0.3 10^3/uL Basophils # (Auto) 0.1 0.0-0.1 10^3/uL Immature Granulocyte # (Auto) 0.0 0.0-0.1 10^3/uL Prothrombin Time 12.5 12.2-14.7 SEC INR Comment 0.9 0.8-1.4 Activated Partial Thromboplast Time 27 24-35 SEC Sodium Level 139 135-145 MMOL/L Potassium Level 3.8 3.6-5.0 MMOL/L Chloride Level 108 H 98-107 MMOL/L Carbon Dioxide Level 22 21-32 MMOL/L Anion Gap 9 5-14 MMOL/L Blood Urea Nitrogen 8 7-18 MG/DL Creatinine 0.91 0.60-1.30 MG/DL Estimat Glomerular Filtration Rate > 60 BUN/Creatinine Ratio 9 Glucose Level 120 H 70-105 MG/DL Calcium Level 10.9 H 8.5-10.1 MG/DL Corrected Calcium 10.8 H 8.5-10.1 MG/DL Magnesium Level 2.3 1.6-2.4 MG/DL Total Bilirubin 0.2 0.1-1.0 MG/DL Aspartate Amino Transf (AST/SGOT) 8 5-34 U/L Alanine Aminotransferase (ALT/SGPT) 10 0-55 U/L Alkaline Phosphatase 73 40-136 U/L Myoglobin 18.8 10.0-92.0 NG/ML Troponin I < 0.028 0.061 H <0.028 NG/ML B-Type Natriuretic Peptide < 10.0 <100.0 PG/ML Total Protein 7.2 6.4-8.2 GM/DL Albumin 4.1 3.2-4.5 GM/DL My Orders Orders - AVELAR,SHIVA L DO Cbc With Automated Diff (08/24/20:17) Magnesium (08/24/20 01:17) Chest 1 View, Ap/Pa Only (08/24/20:17) Ekg Tracing (08/24/20:17) Comprehensive Metabolic Panel (08/24/20:17) Myoglobin Serum (08/24/20:17) Protime With Inr (08/24/20:17) Partial Thromboplastin Time (08/24/20:17) Monitor-Rhythm Ecg Trace Only (08/24/20:17) Lipid Panel (08/25/20 06:00) Ed Iv/Invasive Line Start (08/24/20 01:17) BNP (08/24/20:17) Troponin I (08/24/20 01:17) Aspirin Chewable Tablet (Baby Aspirin Ch (08/24/20 01:30) Troponin I (08/24/20 03:01) Ekg Tracing (08/24/20 04:07) Enoxaparin Injection (Lovenox Injection) (08/24/20 04:30) Medications Given in ED Current Medications Medications Dose Ordered Sig/Jeane Route Start Time Stop Time Status Last Admin Dose Admin Aspirin 324 mg ONCE ONCE PO 08/24/20 01:30 08/24/20 01:31 DC 08/24/20 01:31 324 MG Vital Signs/I&O 08/24/20 08/24/20 01:06 01:06 Temp 36.2 Pulse 80 Resp 18 B/P (MAP) 174/103 (126) Pulse Ox 97 O2 Delivery Room Air Initial ECG Impression Date: Aug 24, 2020 Initial ECG Impression Time: 01:10 Initial ECG Rhythm: Normal Sinus Initial ECG Impression: Nonspecific Changes Comment NSR, LVH, no acute changes EKG : EKG Time: 04:05 Rhythm: Normal Sinus Intervals: Normal ECG Comparisson: Unchanged Comment NSR, LVH, no acute changes Diagnostic Imaging Diagonstic Imaging: Xray Plain Films/CT/US/NM/MRI: chest Comments no acute findings Reviewed: Reviewed by Me Departure Communication (Admissions) Time/Spoke to Admitting Phy: 04:24 Okay to admit, please consult Dr. Sims Time/Spoke to Consulting Phy: 04:25 Aspirin, Lovenox, trend troponins Impression Primary Impression: Non-ST elevated myocardial infarction (non-STEMI) Additional Impression: Chest pain Qualified Codes: I25.9 - Chronic ischemic heart disease, unspecified Disposition: ADMITTED INPATIENT Condition: Stable Admissions Decision to Admit Reason: Admit from ER (General) Decision to Admit/Date: Aug 24, 2020 Time/Decision to Admit Time: 04:05 Departure-Patient Inst. Referrals: PATIENCE JOHNSTON MD (PCP/Family) Primary Care Physician SHIVA AVELAR DO Aug 24, 2020 01:17
[2020-08-24] MEDS ORDERED: ASPIRIN 81 MG CHEW (CHILDREN'S ASA) PO ONE (01:30)
[2020-08-24 01:39] LABS: ALBUMIN 4.1 GM/DL (3.2-4.5); CHLORIDE 108 MMOL/L (98-107); POTASSIUM 3.8 MMOL/L (3.6-5.0); SODIUM 139 MMOL/L (135-145)
[2020-08-24 01:40] LABS: CALCIUM 10.9 MG/DL (8.5-10.1)
[2020-08-24 01:41] LABS: GLUCOSE 120 MG/DL (70-105); TOTAL PROTEIN 7.2 GM/DL (6.4-8.2)
[2020-08-24 01:43] LABS: BASOPHILS # (AUTO) 0.1 10^3/uL (0.0-0.1); BASOPHILS % (AUTO) 1 % (0-10); BILIRUBIN,TOTAL 0.2 MG/DL (0.1-1.0); CARBON DIOXIDE 22 MMOL/L (21-32); EOSINOPHILS # (AUTO) 0.3 10^3/uL (0.0-0.3); EOSINOPHILS % (AUTO) 2 % (0-10); HEMATOCRIT 41 % (35-52); LYMPHOCYTES # (AUTO) 3.7 10^3/uL (1.0-4.0); LYMPHOCYTES % (AUTO) 29 % (12-44); MEAN CORPUSCULAR HEMOGLOBIN 29 pg (25-34); MEAN CORPUSCULAR HGB CONC 32 g/dL (32-36); MEAN CORPUSCULAR VOLUME 90 fL (80-99); MEAN PLATELET VOLUME 10.3 fL (9.0-12.2); MONOCYTES # (AUTO) 0.8 10^3/uL (0.0-1.0); MONOCYTES % (AUTO) 6 % (0-12); NEUTROPHILS # (AUTO) 7.6 10^3/uL (1.8-7.8); NEUTROPHILS % (AUTO) 61 % (42-75); PLATELET COUNT 326 10^3/uL (130-400); WHITE BLOOD COUNT 12.5 10^3/uL (4.3-11.0)
[2020-08-24 01:45] LABS: ALKALINE PHOSPHATASE 73 U/L (40-136); CREATININE SERUM 0.91 MG/DL (0.60-1.30); GFR ESTIMATED > 60
[2020-08-24 01:46] LABS: BUN/CREATININE RATIO 9
[2020-08-24 01:48] LABS: ALANINE AMINOTRANSFERASE 10 U/L (0-55)
[2020-08-24 01:49] LABS: MAGNESIUM 2.3 MG/DL (1.6-2.4)
[2020-08-24 01:50] LABS: INR 0.9 (0.8-1.4); PROTHROMBIN TIME PATIENT 12.5 SEC (12.2-14.7)
--- NOTE | 2020-08-24 02:00 | NUR ---
PATIENT RESTING QUIETLY IN ROOM. DENIES NEEDS AT THIS TIME, CALL LIGHT IN REACH, MONORTING MAINTAINED.
--- NOTE | 2020-08-24 03:00 | NUR ---
IN ROOM FOR BLOOD DRAW. PATIENT IS RESTING QUIETLY AND DENIES NEEDS AT THIS TIME. MONORTING MAINTAINED.
[2020-08-24] MEDS: ENOXAPARIN 60 MG/0.6 ML (LOVENOX) SYR SC SCH ×2 (04:33→16:54)
--- NOTE | 2020-08-24 04:45 | NUR ---
DR AVELAR NOTIFIED OF PATIENT'S BLOOD PRESSURE AND PATIENT HOME MEDS. MEDS ORDERED FOR ADMINISTRATION BY DR AVELAR.
--- NOTE | 2020-08-24 04:50 | NUR ---
DISCUSSED ADMISSION WITH PATIENT LETTING HER KNOW SHE MAY NEED TO STAY HERE IN THE ER UNTIL SHIFT CHANGE. PATIENT IS AGREEABLE AND UNDERSTANDING. VERBALIZES HER COMFORT AND DENIES NEEDS AT THIS TIME.
[2020-08-24] MEDS ORDERED: meTOproloL SUCCINATE 50 MG (TOPROL XL) TAB PO ONE (04:56)
[2020-08-24] MEDS ORDERED: lisINopril 10 MG (PRINIVIL) TABLET ONE (04:56)
[2020-08-24] MEDS: lisINopril 20 MG (PRINIVIL) TABLET PO SCH (04:59)
--- NOTE | 2020-08-24 05:20 | NUR ---
INFORMED PATIENT SHE WILL BE GOING TO ROOM 508 AFTER SHIFT CHNAGE. UNDERSTANDING VERBALIZED, CALL LIGHT IN REACH, MONITORING MAINTAINED.
--- NOTE | 2020-08-24 05:32 | Diagnostic Imaging Report ---
EXAMINATION: AP upright portable chest INDICATION: Chest pain with inspiration COMPARISON: Multiple priors, most recent performed on 04/09/2020. FINDINGS: The lungs are clear and the pulmonary vasculature is normal. No pneumothorax or large pleural effusion. Heart size and mediastinal contours are normal and unchanged. No acute osseous abnormality is identified. IMPRESSION: No radiographic evidence of acute chest disease. No significant change from prior. Dictated by: Dictated on workstation # [id number]
--- NOTE | 2020-08-24 06:59 | NUR ---
DR. JOHNSTON HERE TO SEE PT.
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
--- NOTE | 2020-08-24 07:20 | NUR ---
INTRODUCED SELF TO PT AND NOTIFIED HER WE WOULD BE TAKING HER TO [id number] SHORTLY. DENES NEEDS AT THIS TIME.
[2020-08-24 07:37] VITALS: BP 181/100
[2020-08-24 07:42] VITALS: BP 181/100
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
[2020-08-24] MEDS ORDERED: meTOprolol SUCCINATE 100 MG (TOPROL XL) TAB PO SCH (09:00)
[2020-08-24] MEDS ORDERED: REGADENOSON 0.4 MG/5 ML SYR (LEXISCAN) IV ONE (09:00)
[2020-08-24] MEDS ORDERED: CYCL10TA9 PO (10:09)
[2020-08-24] MEDS ORDERED: MELO15TA39 PO (10:09)
[2020-08-24] MEDS ORDERED: MEDR150V4 IM (10:09)
--- NOTE | 2020-08-24 11:16 | NUR ---
SPOKE WITH THE PT, WENT THRU THE EXT MED HISTORY AND CALLED [facility] TO COMPLETE THE MED REC PT COULD NOT REMEMBER THE NAMES OF HER MEDICATIONS BUT WHEN I NAMED THEM USING THE EXT MED HISTORY THE PT WAS ABLE TO TELL ME HOW SHE TAKES EACH. AMLODIPINE 5MG WAS LAST FILLED 04-11-2020 #90/90DS- I DID INCLUDE THE PAST DUE FILL DATE ON THE MED REC THE FOLLOWING MEDICATIONS ARE LISTED ON THE EXT MED HISTORY HOWEVER PT SAYS SHE IS NO LONGER TAKING: IMITREX, LIDOCAINE, TRI-LO-EZEQUIEL, AND CHANTIX PT DENIES TAKING ANY OTC MEDICATIONS
[2020-08-24 11:37] VITALS: BP 140/98
[2020-08-24] MEDS ORDERED: ACETAMINOPHEN 500 MG TAB (TYLENOL) PO PRN (14:30)
[2020-08-24 16:10] VITALS: BP 162/109
[2020-08-24] MEDS ORDERED: IBUPROFEN 800 MG (MOTRIN) TAB PO PRN (17:00)
[2020-08-24 20:00] VITALS: BP 159/99
[2020-08-24 21:00] VITALS: BP 140/88
--- NOTE | 2020-08-24 21:17 | NUR ---
pt bradycardia heart rate [id number]-this rn called dr. hackett to discuss pt previous vital signs & heart rate. this rn received orders dc Toprol & continue to monitor.
[2020-08-25 00:04] VITALS: BP 141/84
[2020-08-25 04:39] VITALS: BP 136/82
[2020-08-25] MEDS: ENOXAPARIN 60 MG/0.6 ML (LOVENOX) SYR SC SCH (04:43)
[2020-08-25 05:35] LABS: TRIGLYCERIDES 196 MG/DL (<150); VLDL CHOLESTEROL 39 MG/DL (5-40)
[2020-08-25 05:40] LABS: CHOLESTEROL 216 MG/DL (< 200)
[2020-08-25 05:41] LABS: HDL CHOLESTEROL 45 MG/DL (40-60)
--- NOTE | 2020-08-25 06:47 | Progress Note ---
Subjective Date Seen by a Provider: Aug 25, 2020 Time Seen by a Provider: 06:55 Subjective/Events-last exam Voices no chest pain this am. She has had no SOB. Awaiting her stress treadmill this am. Objective Exam Vital Signs Date Time Temp Pulse Resp B/P (MAP) Pulse Ox O2 Delivery O2 Flow Rate FiO2 08/25/20 04:40 Room Air 08/25/20 04:39 36.6 48 14 136/82 (100) 97 Room Air 08/25/20 01:00 50 08/25/20 00:17 Room Air 08/25/20 00:04 37.7 48 18 141/84 (103) 96 Room Air 08/24/20 21:00 46 140/88 (105) 08/24/20 20:00 37.0 61 18 159/99 (119) 97 Room Air 08/24/20 19:30 Room Air 08/24/20 19:30 Room Air 08/24/20 19:00 60 08/24/20 16:10 37.1 60 18 162/109 (126) 99 Room Air 08/24/20 15:46 Room Air 08/24/20 12:00 Room Air 08/24/20 11:55 67 08/24/20 11:37 37.6 74 19 140/98 (112) 98 08/24/20 08:00 Room Air 08/24/20 08:00 99 Room Air 08/24/20 08:00 50 08/24/20 07:42 52 21 181/100 (127) 98 Room Air 08/24/20 07:37 52 21 181/100 98 Room Air 08/24/20 07:27 56 16 155/99 97 Room Air I & O 08/25/20 07:00 Intake Total 1285 ml Output Total 1800 ml Balance -515 ml Capillary Refill : Less Than 3 Seconds General Appearance: No Apparent Distress Neck: Non Tender Respiratory: Lungs Clear Cardiovascular: Regular Rate, Rhythm Results Lab Laboratory Tests 08/25/20 05:06: Troponin I < 0.028, Triglycerides Level 196H, Cholesterol Level 216H, LDL Cholesterol Direct 168H, VLDL Cholesterol 39, HDL Cholesterol 45 Assessment/Plan Assessment/Plan Assess & Plan/Chief Complaint 1. Chest pain -appears to be cardiac in nature 08/25/2020 -LDL elevated at 169 2. Elevated troponin -At this point diagnosis non-STEMI ME -Cardiology to fully evaluate this morning 08/25/2020 -Troponin w/i normal range this am -Cardiac stress testing this am per Dr Benitez 3. Hypertension control marginal -Hypertensive regimen to be evaluated during the course of her stay 4. Episodes of bradycardia -monitoring 5. Situational stress Clinical Quality Measures Admission Status Admission Dx 1. Chest pain 2. Elevated troponin 3. Hypertension control marginal 4. Situational stress AMI/AHF: ASA po Prior to arrival: No DVT/VTE Risk/Contraindication: Risk Factor Score Per Nursin RFS Level Per Nursing on Admit: 2=Moderate PATIENCE JOHNSTON MD Aug 25, 2020 06:47
[2020-08-25] MEDS: lisINopril 20 MG (PRINIVIL) TABLET PO SCH (07:47)
--- NOTE | 2020-08-25 07:49 | NUR ---
B/P 167/123. DR. NOLASCO NOTIFIED. ORDER TO GIVE AM DOSE OF LISINOPRIL.
[2020-08-25 08:00] VITALS: BP 170/102
[2020-08-25] MEDS ORDERED: CATHETER FLUSH 10 ML SYR IV PRN (08:30)
--- NOTE | 2020-08-25 08:36 | Cardiology Progress Note ---
Subjective Date Seen by Provider: Aug 25, 2020 Time Seen by Provider: 08:34 Subjective/Events-last exam She was seen at bedside, laying down comfortably, denied any active chest pain, has been bradycardic at night Review of Systems General: No Chills, No Night Sweats, No Fatigue, No Malaise, No Appetite, No Other HEENT: No Head Aches, No Visual Changes, No Eye Pain, No Ear Pain, No Dysphasia, No Sinus Congestion, No Post Nasal Drip, No Sore Throat, No Other Pulmonary: No Dyspnea, No Cough, No Pleuritic Chest Pain, No Other Cardiovascular: No: Chest Pain, Palpitations, Orthopnea, Paroxysmal Noc. Dyspnea, Edema, Lt Headedness, Other Objective-Cardiology Exam Last Set of Vital Signs Vital Signs 08/25/20 08:00 Temp 36.4 Pulse 51 Resp 11 B/P (MAP) 170/102 (124) Pulse Ox 98 O2 Delivery Room Air Capillary Refill : Less Than 3 Seconds I&O Intake and Output 08/25/20 00:00 Intake Total 685 ml Output Total 700 ml Balance -15 ml Intake Oral 685 ml Output Urine Total 700 ml Daily Weight Change No No General: Alert, Oriented X3, Cooperative HEENT: Atraumatic, PERRLA Neck: Supple, No JVD, No Thyromegaly Lungs: Clear to Auscultation, Normal Air Movement Heart: Regular Rate, Normal S1, Normal S2, No Murmurs Abdomen: Normal Bowel Sounds, Soft, No Tenderness, No Hepatosplenomegaly, No Masses Extremities: No Clubbing, No Cyanosis, No Edema, Normal Pulses, No Tenderness/Swelling Skin: No Rashes, No Breakdown, No Significant Lesion Neuro: Normal Gait, Normal Speech, Strength at 5/5 X4 Ext, Normal Tone, Sensation Intact Psych/Mental Status: Mental Status NL, Mood NL A/P-Cardiology Admission Diagnosis Chest pain elevated troponin HTN Tobaccoism Assessment/Plan Chest pain, nonspecific etiology, atypical in presentation, planning to evaluate stress test today Sinus node dysfunction, sinus bradycardia, heart rate in the 40s, I will stop beta blockers. Monitor tolerance and response Resistant hypertension, restart lisinopril, add hydrochlorothiazide and monitor tolerance and response Mild elevation in the second troponin, repeat troponin was normal. Probably within the margin of lab error. No myocardial infarction Tobaccoism Fam. Hx of CAD Recent bronchitis Clinical Quality Measures AMI/AHF: ASA po Prior to arrival: No DVT/VTE Risk/Contraindication: Risk Factor Score Per Nursin RFS Level Per Nursing on Admit: 2=Moderate KENAN NOLASCO MD Aug 25, 2020 08:36
--- NOTE | 2020-08-25 08:49 | NUR ---
IN STRESS TEST.
--- NOTE | 2020-08-25 11:17 | Cardiology Stress Test Report ---
Stress Test Report Date of Procedure/Referring: Date of Procedure: Aug 25, 2020 PCP Mikey Cortes MD Admitting Physician Mikey Cortes MD Indications: Chest pain Baseline Heart Rate: 53 Baseline Blood Pressure: Blood Pressure Systolic: 170 Blood Pressure Diastolic: 102 Vital Signs Date Time Temp Pulse Resp B/P (MAP) Pulse Ox O2 Delivery O2 Flow Rate FiO2 08/24/20 01:06 36.2 80 18 174/103 (126) 97 08/24/20 01:06 Room Air Baseline Vital Signs Vital Signs Date Time Temp Pulse Resp B/P (MAP) Pulse Ox O2 Delivery O2 Flow Rate FiO2 08/24/20 01:06 36.2 80 18 174/103 (126) 97 08/24/20 01:06 Room Air Baseline EKG: Baseline EKG: normal sinus rhythm Summary: After explaining the procedure and details to the patient, she signed the consent and was brought to the stress nuclear laboratory. Patient exercised on standard Juan protocol, EKG, heart rate and blood pressure were monitored continuously, resting and stress doses of radio tracer were injected, imaging was acquired and reviewed in the short axis, horizontal long axis and vertical long axis views Patient was able to exercise for a total of 6:30 minutes on Juan protocol, METs 7.9 Maximum heart rate 154 Maximum blood pressure 233/107 Stress EKG, Minimal nondiagnostic changes Recovery EKG, Return to baseline TID: 1.08 SSS: 4 SDS: 2 EF: 65 Conclusion: 1. Good exercise tolerance for 6 minutes 30 seconds on standard Juan protocol 7.9 METs achieving 85 percent of maximum expected heart rate with peak heart rate 1 54 bpm 2. Baseline hypertension with severe hypertensive response to exercise with peak blood pressure 233/107 return to baseline during recovery 3. Minimal nondiagnostic EKG changes with exercise returned to baseline during recovery 4. Diaphragmatic attenuation with extracardiac attenuation, no significant ischemia or infarction on SPECT images 5. Normal left ventricular size, EF 65 percent KENAN NOLASCO MD Aug 25, 2020 11:17
[2020-08-25] MEDS ORDERED: HYDR25TA4 PO (11:19)
[2020-08-25 11:57] VITALS: BP 164/82
--- NOTE | 2020-08-25 12:10 | NUR ---
IV AND TELE DC'D. REVIEWED DC INST AND VERBALIZED UNDERSTANDING. DC'D PER WC TO HOME.
== END 2020-08-25 12:11 | disposition home or self-care (01) | DRG 313 ==
LOC: EDUNIT# 01:06 → EDSTATUS 01:08 → ER 01:08 → RMINBED 04:24 → CSD 04:25
PROVIDERS: ADMIT Family Medicine; ATTEND Family Medicine
DX: R07.89 Other chest pain (principal); I10 Essential (primary) hypertension; R77.8 Other specified abnormalities of plasma proteins; F43.9 Reaction to severe stress, unspecified; F41.9 Anxiety disorder, unspecified; F32.9 Major depressive disorder, single episode, unspecified; R00.1 Bradycardia, unspecified; F17.210 Nicotine dependence, cigarettes, uncomplicated; Z85.41 Personal history of malignant neoplasm of cervix uteri; Z82.49 Family history of ischemic heart disease and other diseases of the circulatory system
CPT/HCPCS: 36415; 71045; 78452; 80053; 80061; 83735; 83874; 83880; 84484; 85025; 85610; 85730; 93005; 93017; 93041; 93306

== ENCOUNTER 2021-06-22 18:45 | Emergency (ER) | payer MEDICAID ==
[~2021-06-22] VITALS: Ht 167 cm; Wt 56.8 kg
[~2021-06-22 18:45] MED LIST changes: +HYDR25TA4 PO; -LISI-552 PO; +LISI20TA26 PO; +MEDR150V4 IM; +MELO15TA39 PO; -SULF1TAB35 PO; +SULF1TAB38 PO
[2021-06-22 20:18] LABS: CLARITY,URINE CLOUDY; COLOR,URINE YELLOW; GLUCOSE, URINE (UA) NEGATIVE (NEGATIVE); KETONES,URINE NEGATIVE (NEGATIVE); LEUKOCYTE ESTERASE ,URINE NEGATIVE (NEGATIVE); NITRITE,URINE NEGATIVE (NEGATIVE); PH,URINE 5.5 (5-9); PROTEIN,URINE 1+ (NEGATIVE)
[2021-06-22 20:26] LABS: BASOPHILS # (AUTO) 0.1 10^3/uL (0.0-0.1); BASOPHILS % (AUTO) 1 % (0-10); EOSINOPHILS # (AUTO) 0.3 10^3/uL (0.0-0.3); EOSINOPHILS % (AUTO) 3 % (0-10); HEMATOCRIT 49 % (35-52); HEMOGLOBIN 16.2 g/dL (11.5-16.0); LYMPHOCYTES # (AUTO) 2.2 10^3/uL (1.0-4.0); LYMPHOCYTES % (AUTO) 22 % (12-44); MEAN CORPUSCULAR HEMOGLOBIN 31 pg (25-34); MEAN CORPUSCULAR HGB CONC 33 g/dL (32-36); MEAN CORPUSCULAR VOLUME 95 fL (80-99); MEAN PLATELET VOLUME 9.6 fL (9.0-12.2); MONOCYTES # (AUTO) 0.8 10^3/uL (0.0-1.0); MONOCYTES % (AUTO) 8 % (0-12); NEUTROPHILS # (AUTO) 6.8 10^3/uL (1.8-7.8); NEUTROPHILS % (AUTO) 67 % (42-75); PLATELET COUNT 262 10^3/uL (130-400); WHITE BLOOD COUNT 10.2 10^3/uL (4.3-11.0)
--- NOTE | 2021-06-22 20:27 | ED GU-Female ---
General Chief Complaint: Female Reproductive Stated Complaint: VAGINAL BLEEDING Source: patient Exam Limitations: no limitations History of Present Illness Date Seen by Provider: Jun 22, 2021 Time Seen by Provider: 19:57 Initial Comments Patient presents to the ER by private conveyance with chief complaint of 6 weeks of vaginal bleeding in the last day or 2 she has had some cramping right lower quadrant abdominal pain and vomiting. No abdominal or pelvic surgeries. She is a G6, P4 with no recent tests. She is going through a recent divorce and does not have access to her medication she typically takes lisinopril 40 mg and hydrochlorothiazide for blood pressure. She has an appointment on Friday with Dr. Johnston but did not want a wait since these new symptoms started. She went to [facility] and had STD testing but no pelvic exam 2 weeks ago all of which was negative. They did urine, vaginal swabs and blood testing. She denies any chest pain shortness of air or exertional dyspnea. She is known to Dr. Benitez because she had a heart attack. She denies use of any drugs or smoking. She is not on any Plavix, aspirin or blood thinners. She was on Depo- Provera until her last dose in September. She rates her bleeding as greater than a. Passing some clots more than a chickens egg. Allergies and Home Medications Allergies Coded Allergies: latex (Verified Allergy, Severe, SEVERE SWELLING, 04/07/18) Home Medications Alprazolam 1 Mg Tablet, 1 MG PO BID PRN for ANXIETY, (Reported) Amlodipine Besylate 5 Mg Tablet, 5 MG PO DAILY, (Reported) LAST FILLED 04-11-2020 #90/90 DAY SUPPLY Citalopram Hydrobromide 10 Mg Tablet, 10 MG PO DAILY, (Reported) Cyclobenzaprine HCl 10 Mg Tablet, 10 MG PO TID PRN for MUSCLE SPASMS, (Reported) Hydrochlorothiazide 25 Mg Tablet, 25 MG PO DAILY Prescribed by: KENAN BENITEZ on 08/25/20 1119 Hydrochlorothiazide 12.5 Mg Tablet, 12.5 MG PO DAILY Prescribed by: ELVIN MURO on 06/22/212099 Lisinopril 20 Mg Tablet, 20 MG PO DAILY, (Reported) Lisinopril 40 Mg Tablet, 40 MG PO DAILY Prescribed by: ELVIN MURO on 06/22/212099 Medroxyprogesterone Acetate 150 Mg/1 Ml Vial, 1 ML IM EVERY 3 MONTHS, (Reported) Metronidazole 500 Mg Tablet, 500 MG PO BID Prescribed by: ELVIN MURO on 06/22/21 3017 Patient Home Medication List Home Medication List Reviewed: Yes Review of Systems Review of Systems Constitutional: No chills, No diaphoresis EENTM: No ear discharge, No ear pain Respiratory: No cough Cardiovascular: No chest pain, No palpitations Gastrointestinal: RLQ (pain); No abdominal pain, No nausea Genitourinary: see HPI; denies burning, denies discharge, denies dysuria Musculoskeletal: No back pain, No joint pain All Other Systemes Reviewed Negative Unless Noted: Yes Past Pxyoqae-Voxaif-Ollbov Hx Patient Social History Tobacco Use?: No Use of E-Cig and/or Vaping dev: No Substance use?: No Alcohol Use?: No Immunizations Up To Date Tetanus Booster (TDap): Unknown Seasonal Allergies Seasonal Allergies: No Past Medical History Surgeries: Yes (RIGHT HAND / TENDON REPAIR; CERVICAL SURGERY FOR DYSPLASIA) Breast, Orthopedic Respiratory: No Currently Using CPAP: No Currently Using BIPAP: No Cardiac: Yes Hypertension Neurological: No Reproductive Disorders: Yes (CERVICAL DYSPLASIA) Female Reproductive Disorders: Denies Sexually Transmitted Disease: No HIV/AIDS: No Genitourinary: No Gastrointestinal: No Musculoskeletal: No Endocrine: No HEENT: Yes (GLASSES ) Loss of Vision: Bilateral Cancer: Yes Cervical Did You Recieve Any Treatments: Yes What Type of Treatment Did You: Surgical Intervention Psychosocial: Yes Anxiety, Depression Integumentary: No Blood Disorders: No Adverse Reaction/Blood Tranf: No (N/A) Family Medical History CAD Under 55 Years Old, Diabetes Physical Exam Vital Signs Vital Signs - First Documented 06/22/21 20:03 Temp 36.7 Pulse 100 Resp 18 B/P (MAP) 178/127 (144) Pulse Ox 100 O2 Delivery Room Air Capillary Refill : Height, Weight, BMI Height: 5'1.00" Weight: 146lbs. 9.0oz. [id number]; 25.80 BMI Method:Stated General Appearance: WD/WN, no apparent distress HEENT: PERRL/EOMI, pharynx normal Neck: full range of motion, normal inspection Cardiovascular: normal peripheral pulses, regular rate, rhythm Respiratory: lungs clear, normal breath sounds, no respiratory distress, no accessory muscle use Gastrointestinal: normal bowel sounds, soft, no organomegaly, tenderness (RLQ mild TTP and LUQ TTP) Genital/Rectal: normal genital exam (Normal external genital exam), tenderness (Tenderness to palpation of the right ovary without prominence), other (Small amount of sanguinous secretions without pooling in the vaginal vault. Cervix is multiparous and closed. No discharge noted otherwise. Left ovary symmetric to right ovary and uterus small and firm.) Neurologic/Psychiatric: alert, normal mood/affect, oriented x 3 Skin: normal color, warm/dry Progress/Results/Core Measures Suspected Sepsis SIRS Temperature: Pulse: Respiratory Rate: Laboratory Tests 06/22/21 20:17: White Blood Count 10.2 Blood Pressure / Mean: Laboratory Tests 06/22/21 20:17: Creatinine 0.88, INR Comment 0.9, Platelet Count 262, Total Bilirubin 0.3 Results/Orders Lab Results Laboratory Tests Test 06/22/21 20:06 06/22/21 20:17 Range/Units Urine Color YELLOW Urine Clarity CLOUDY Urine pH 5.5 5-9 Urine Specific [place] 1.025 H 1.016-1.022 Urine Protein 1+ H NEGATIVE Urine Glucose (UA) NEGATIVE NEGATIVE Urine Ketones NEGATIVE NEGATIVE Urine Nitrite NEGATIVE NEGATIVE Urine Bilirubin 1+ H NEGATIVE Urine Urobilinogen 1.0 < = 1.0 MG/DL Urine Leukocyte Esterase NEGATIVE NEGATIVE Urine RBC (Auto) 3+ H NEGATIVE Urine RBC 2-5 H /HPF Urine WBC 0-2 /HPF Urine Squamous Epithelial Cells 10-25 H /HPF Urine Crystals NONE /LPF Urine Bacteria MODERATE H /HPF Urine Casts NONE /LPF Urine Mucus MODERATE H /LPF Urine Culture Indicated YES White Blood Count 10.2 4.3-11.0 10^3/uL Red Blood Count 5.16 H 3.80-5.11 10^6/uL Hemoglobin 16.2 H 11.5-16.0 g/dL Hematocrit 49 35-52 % Mean Corpuscular Volume 95 80-99 fL Mean Corpuscular Hemoglobin 31 25-34 pg Mean Corpuscular Hemoglobin Concent 33 32-36 g/dL Red Cell Distribution Width 12.6 10.0-14.5 % Platelet Count 262 130-400 10^3/uL Mean Platelet Volume 9.6 9.0-12.2 fL Immature Granulocyte % (Auto) 0 % Neutrophils (%) (Auto) 67 42-75 % Lymphocytes (%) (Auto) 22 12-44 % Monocytes (%) (Auto) 8 0-12 % Eosinophils (%) (Auto) 3 0-10 % Basophils (%) (Auto) 1 0-10 % Neutrophils # (Auto) 6.8 1.8-7.8 10^3/uL Lymphocytes # (Auto) 2.2 1.0-4.0 10^3/uL Monocytes # (Auto) 0.8 0.0-1.0 10^3/uL Eosinophils # (Auto) 0.3 0.0-0.3 10^3/uL Basophils # (Auto) 0.1 0.0-0.1 10^3/uL Immature Granulocyte # (Auto) 0.0 0.0-0.1 10^3/uL Prothrombin Time 12.8 12.2-14.7 SEC INR Comment 0.9 0.8-1.4 Sodium Level 139 135-145 MMOL/L Potassium Level 3.6 3.6-5.0 MMOL/L Chloride Level 105 98-107 MMOL/L Carbon Dioxide Level 26 21-32 MMOL/L Anion Gap 8 5-14 MMOL/L Blood Urea Nitrogen 8 7-18 MG/DL Creatinine 0.88 0.60-1.30 MG/DL Estimat Glomerular Filtration Rate 71 BUN/Creatinine Ratio 9 Glucose Level 106 H 70-105 MG/DL Calcium Level 11.8 H 8.5-10.1 MG/DL Corrected Calcium 11.5 H 8.5-10.1 MG/DL Total Bilirubin 0.3 0.1-1.0 MG/DL Aspartate Amino Transf (AST/SGOT) 17 5-34 U/L Alanine Aminotransferase (ALT/SGPT) 19 0-55 U/L Alkaline Phosphatase 70 40-136 U/L Total Protein 8.0 6.4-8.2 GM/DL Albumin 4.4 3.2-4.5 GM/DL My Orders Orders - ELVIN MURO Ua Culture If Indicated (06/22/21 19:55) Urine Bedside (06/22/21 19:55) Cbc With Automated Diff (06/22/21 19:55) Comprehensive Metabolic Panel (06/22/21 19:55) Protime With Inr (06/22/21 19:55) Wet Prep (06/22/21 20:16) Urine Culture (06/22/21 20:06) Metronidazole Tablet (Flagyl Tablet) (06/22/21 22:00) Vital Signs/I&O 06/22/21 20:03 Temp 36.7 Pulse 100 Resp 18 B/P (MAP) 178/127 (144) Pulse Ox 100 O2 Delivery Room Air Capillary Refill : Progress Note : Time: 20:20 Progress Note Plan to check some labs including a hemoglobin and a wet prep speculum exam. We have offered her a refill of her blood pressure medicines. Up until this point the bleeding has been painless. Seems therefore unlikely she has ovarian torsion or some other emergent uterine finding. She has a strong family history of coronary disease but not of cancer of a gynecologic nature. This provider suspects that her disorganized bleeding is related to withdrawal from the Depo-Medrol however it would be reasonable to have her follow-up outpatient with a sugar controller. Plan to check a TSH. Departure Impression Primary Impression: Abnormal uterine bleeding (AUB) Additional Impression: Bacterial vaginitis Disposition: HOME, SELF-CARE Condition: Stable Departure-Patient Inst. Decision time for Depature: 21:59 Referrals: PATIENCE JOHNSTON MD (PCP/Family) Primary Care Physician Patient Instructions: Bleeding Between Periods, Bacterial Vaginosis (DC) Add. Discharge Instructions: Keep your follow-up appointment on Friday. Zofran 1 tablet every 6 hours as necessary for nausea. Tylenol 1000 mg every 8 hours as necessary for pain. Ibuprofen or naproxen as necessary for pain. Resume your blood pressure medications as directed. Return to the ER promptly if you are having severe chest pain, shortness of breath with exertion, or passing large blood clots greater than the chickens egg. Flagyl 500 mg twice a day for the next week. All discharge instructions reviewed with patient and/or family. Voiced understanding. Scripts Ondansetron (Ondansetron Odt) 4 Mg Tab.rapdis 4 MG PO Q6H PRN for NAUSEA/VOMITING, #8 TAB 0 Refills Prov: ELVIN MRUO 06/22/21 Metronidazole (Flagyl) 500 Mg Tablet 500 MG PO BID for 7 Days, #14 TAB 0 Refills Prov: ELVIN MURO 06/22/21 Hydrochlorothiazide (Hydrochlorothiazide) 12.5 Mg Tablet 12.5 MG PO DAILY for 14 Days, #14 TAB 0 Refills Prov: ELVIN MURO 06/22/21 Lisinopril (Lisinopril) 40 Mg Tablet 40 MG PO DAILY for 14 Days, #14 TAB 0 Refills Prov: ELVIN MURO 06/22/21 Copy Copies To 1: PATIENCE JOHNSTON MD, TITUS J Jun 22, 2021 20:27
[2021-06-22 20:29] LABS: BILIRUBIN,URINE 1+ (NEGATIVE)
[2021-06-22 20:31] LABS: BACTERIA,URINE MODERATE /HPF; WBC,URINE 0-2 /HPF
[2021-06-22 20:36] LABS: ALBUMIN 4.4 GM/DL (3.2-4.5); POTASSIUM 3.6 MMOL/L (3.6-5.0)
[2021-06-22 20:37] LABS: CALCIUM 11.8 MG/DL (8.5-10.1)
[2021-06-22 20:39] LABS: INR 0.9 (0.8-1.4); PROTHROMBIN TIME PATIENT 12.8 SEC (12.2-14.7)
[2021-06-22 20:40] LABS: BILIRUBIN,TOTAL 0.3 MG/DL (0.1-1.0)
[2021-06-22 20:42] LABS: CREATININE SERUM 0.88 MG/DL (0.60-1.30)
[2021-06-22] MEDS ORDERED: HYDR12.56 PO (21:00)
[2021-06-22] MEDS ORDERED: LISI40TA9 PO (21:00)
[2021-06-22] MEDS ORDERED: METR500T PO (21:59)
[2021-06-22] MEDS ORDERED: metroNIDAZOLE 500 MG (FLAGYL) TAB PO ONE (22:00)
[2021-06-22 22:07] VITALS: BP 163/134
[2021-06-22] MEDS ORDERED: ONDA4TAB11 PO (22:11)
== END 2021-06-22 22:07 | disposition home or self-care (01) ==
LOC: EDUNIT# 18:45 → ER 18:46
DX: N76.0 Acute vaginitis (principal); I10 Essential (primary) hypertension; T46.4X6A Underdosing of angiotensin-converting-enzyme inhibitors, initial encounter; T50.2X6A Underdosing of carbonic-anhydrase inhibitors, benzothiadiazides and other diuretics, initial encounter; F41.9 Anxiety disorder, unspecified; F32.9 Major depressive disorder, single episode, unspecified; Z91.138 Patient's unintentional underdosing of medication regimen for other reason; Z79.899 Other long term (current) drug therapy
CPT/HCPCS: 36415; 80053; 81000; 84703; 85025; 85610; 87088; 87210; 99284

== ENCOUNTER → 2021-06-26 | Outpatient (CLI) | payer MEDICAID ==
[~2021-06-26] MED LIST changes: +HYDR12.56 PO; +LISI40TA9 PO; +METR500T PO; +ONDA4TAB11 PO
--- NOTE | 2021-06-26 14:56 | Diagnostic Imaging Report ---
PROCEDURE: Pelvic comp/transvaginal sonogram. TECHNIQUE: Complete transabdominal and transvaginal pelvic ultrasound was performed. In addition, limited pelvic Doppler was performed. INDICATION: Abnormal uterine bleeding. Uterus is anteverted measuring 9.1 x 5.2 x 5.9 cm. Endometrium is 6 mm in thickness. No myometrial mass is detected. There are cervical nabothian cysts present. Right ovary measures 2.5 x 1.9 x 2.1 cm and the left ovary measures 3.3 x 1.5 x 2.7 cm. Right ovary does contain a 14 mm cyst. There is blood flow to both ovaries. No adnexal mass is seen. There is trace free pelvic fluid noted. IMPRESSION: Small right ovarian cyst. Study is otherwise unremarkable. Dictated by: Dictated on workstation # [id number]
== END ==
LOC: RAD 12:45
PROVIDERS: ATTEND Family Medicine
DX: N83.201 Unspecified ovarian cyst, right side (principal)
CPT/HCPCS: 76830; 76856

== ENCOUNTER 2021-11-17 15:26 | Emergency (ER) | payer MEDICAID ==
[~2021-11-17] VITALS: Ht 154 cm; Wt 60.0 kg
[~2021-11-17 15:26] MED LIST changes: -CITA10TA7 PO; +CITA10TA9 PO; +CYCL10TA25 PO
[2021-11-17] MEDS ORDERED: METOCLOPRAMIDE INJ 10 MG/2 ML (REGLAN) IVP ONE (16:45)
[2021-11-17] MEDS ORDERED: KETOROLAC 30 MG/ML VIAL IVP ONE (16:45)
[2021-11-17] MEDS ORDERED: diphenhydrAMINE 50 MG/ML INJ (BENADRYL) IV ONE (16:45)
--- NOTE | 2021-11-17 16:52 | ED Headache ---
General Chief Complaint: Head/Cervical Problems Stated Complaint: CHANG,BACK PAIN Nursing Triage Note: ARRIVED VIA AMB TO ROOM 02. COMPLAINS OF SEVERE HEAD AND BACK PAIN STARTING THIS AM. HAS TAKEN TYLENOL AND A MUSCLE RELAXER. Source: patient Exam Limitations: no limitations History of Present Illness Date Seen by Provider: Nov 17, 2021 Time Seen by Provider: 16:30 Initial Comments Patient is a 41-year-old female who presents to the emergency room with a chief complaint of severe headache that radiates down her back into her legs. Patient states she woke up this morning and the pain started suddenly around 8 AM. She denies any trauma, falls, recent illness. She has no other symptoms reported except for headache that radiates from her forehead down the back of her head through her neck between her shoulder blades down her back and more her right leg than her left leg. She denies any bowel or bladder incontinence. She has been able to void spontaneously. She has had food today she is not nauseous. No visual changes. No problems with balance or coordination. No numbness, tingling or weakness. No recent fevers or chills. She reports she is supposed to be on medications for high blood pressure, lisinopril 20 mg and some medication that starts "with an H". Her blood pressure is quite high at 180/111. She "forgets" to take her medications. Patient tells me the only thing she is taking today is a couple of Tylenol at 2:00. All other review of systems reviewed and negative except as stated. Timing/Duration: other (10 hours) Severity/Quality: severe Location: global Prior Headaches/Recent Trauma: occasional headaches Modifying Factors: worse with movement Associated Symptoms: No confusion, No fatigue, No facial pain, No fever/chills, No flushing, No nausea/vomiting, No nasal congestion, No nasal drainage, No numbness in legs/feet, No rash, No seizures, No sinus infection, No stiff neck, No vision changes, No weakness Allergies and Home Medications Allergies Coded Allergies: latex (Verified Allergy, Severe, SEVERE SWELLING, 04/07/18) Patient Home Medication List Home Medication List Reviewed: Yes Alprazolam (Xanax) 1 Mg Tablet, 1 MG PO BID PRN for ANXIETY, (Reported) Entered as Reported by: GILES AYOUB on 04/07/18 0948 Amlodipine Besylate (Amlodipine Besylate) 5 Mg Tablet, 5 MG PO DAILY, (Reported) Entered as Reported by: AGUSTIN COMBS on 04/10/20 0950 Citalopram Hydrobromide (Citalopram HBr) 10 Mg Tablet, 10 MG PO DAILY, (Reported) Entered as Reported by: AGUSTIN COMBS on 04/10/20 0950 Cyclobenzaprine HCl (Cyclobenzaprine HCl) 10 Mg Tablet, 10 MG PO TID PRN for MUSCLE SPASMS, (Reported) Entered as Reported by: AGUSTIN COMBS on 08/24/20 1009 Cyclobenzaprine HCl (Cyclobenzaprine HCl) 10 Mg Tablet, 10 MG PO Q8H PRN for muscle spasm Prescribed by: MAITE SAAVEDRA on 11/17/21 165 Hydrochlorothiazide (Hydrochlorothiazide) 25 Mg Tablet, 25 MG PO DAILY Prescribed by: KENAN NOLASCO on 08/25/20 1119 Hydrochlorothiazide (Hydrochlorothiazide) 12.5 Mg Tablet, 12.5 MG PO DAILY Prescribed by: ELVIN MURO on 06/22/212099 Lisinopril (Lisinopril) 20 Mg Tablet, 20 MG PO DAILY, (Reported) Entered as Reported by: GILES AYOUB on 04/07/1848 Lisinopril (Lisinopril) 40 Mg Tablet, 40 MG PO DAILY Prescribed by: ELVIN MURO on 06/22/212099 Medroxyprogesterone Acetate (Medroxyprogesterone Acetate) 150 Mg/1 Ml Vial, 1 ML IM EVERY 3 MONTHS, (Reported) Entered as Reported by: AGUSTIN COMBS on 08/24/20 1009 Metronidazole (Flagyl) 500 Mg Tablet, 500 MG PO BID Prescribed by: ELVIN MURO on 06/22/212158 Naproxen (Naprosyn) 500 Mg Tablet, 500 MG PO BID PRN for headache Prescribed by: MAITE SAAVEDRA on 11/17/21 165 Ondansetron (Ondansetron Odt) 4 Mg Tab.rapdis, 4 MG PO Q6H PRN for NAUSEA/VOMITING Prescribed by: ELVIN MURO on 06/22/212210 Review of Systems Review of Systems Constitutional: see HPI Eyes: See HPI Ears, Nose, Mouth, Throat: no symptoms reported Respiratory: no symptoms reported Cardiovascular: no symptoms reported Gastrointestinal: no symptoms reported Genitourinary: no symptoms reported Musculoskeletal: no symptoms reported Skin: no symptoms reported Psychiatric/Neurological: Headache All Other Systems Reviewed Negative Unless Noted: Yes Past Wfpbdnt-Pdrxwf-Nodzjv Hx Patient Social History Smoking Status: Current Everyday Smoker Substance use?: No Alcohol Use?: No Immunizations Up To Date Tetanus Booster (TDap): Unknown Seasonal Allergies Seasonal Allergies: No Past Medical History Surgeries: Yes (RIGHT HAND / TENDON REPAIR; CERVICAL SURGERY FOR DYSPLASIA) Breast, Orthopedic Respiratory: No Currently Using CPAP: No Currently Using BIPAP: No Cardiac: Yes Hypertension Neurological: No Reproductive Disorders: Yes (CERVICAL DYSPLASIA) Female Reproductive Disorders: Denies Sexually Transmitted Disease: No HIV/AIDS: No Genitourinary: No Gastrointestinal: No Musculoskeletal: No Endocrine: No HEENT: Yes (GLASSES ) Loss of Vision: Bilateral Cancer: Yes Cervical Did You Recieve Any Treatments: Yes What Type of Treatment Did You: Surgical Intervention Psychosocial: Yes Anxiety, Depression Integumentary: No Blood Disorders: No Adverse Reaction/Blood Tranf: No (N/A) Family Medical History CAD Under 55 Years Old, Diabetes Physical Exam Vital Signs Vital Signs - First Documented 11/17/21 15:50 Temp 36.3 Pulse 123 Resp 16 B/P (MAP) 182/102 (128) Pulse Ox 98 O2 Delivery Room Air Capillary Refill : Less Than 3 Seconds Height, Weight, BMI Height: 5'1.00" Weight: 146lbs. 9.0oz. [id number]; 25.00 BMI Method:Stated General Appearance: WD/WN, mild distress (aooears to feel unwell) HEENT: PERRL/EOMI, normal ENT inspection, TMs normal, pharynx normal Neck: non-tender, full range of motion, supple, normal inspection Cardiovascular: regular rate, rhythm Respiratory: lungs clear, normal breath sounds, no respiratory distress, no accessory muscle use Gastrointestinal: normal bowel sounds, non tender, soft Back: normal inspection, no vertebral tenderness Extremities: normal range of motion, non-tender, normal inspection, no pedal edema, no calf tenderness Psychiatric: alert, oriented x 3, depressed affect; No disoriented x 3, No lethargic Crainal Nerves: normal hearing, normal speech, PERRL; No abnormal speech, No facial asymmetry Coordination/Gait: normal finger to nose Motor/Sensory: no motor deficit, no sensory deficit; No sensory deficit; other (2+ DTR bilateral patellar) Skin: normal color, warm/dry Progress/Results/Core Measures Results/Orders My Orders Orders - MAITE SAAVEDRA MD Ed Iv/Invasive Line Start (11/17/21 16:43) Ct Head Wo (11/17/21 16:43) Ketorolac Injection (Toradol Injection) (11/17/21 16:45) Diphenhydramine Injection (Benadryl Inje (11/17/21 16:45) Metoclopramide Injection (Reglan Injecti (11/17/21 16:45) Urine Bedside (11/17/21 17:07) Orphenadrine Inj (Ed Only) (Norflex Inje (11/17/21 18:30) Medications Given in ED Current Medications Medications Dose Ordered Sig/Jeane Route Start Time Stop Time Status Last Admin Dose Admin Diphenhydramine HCl 25 mg ONCE ONCE IV 11/17/21 16:45 11/17/21 16:46 DC 11/17/21 16:51 25 MG Ketorolac Tromethamine 15 mg ONCE ONCE IVP 11/17/21 16:45 11/17/21 16:46 DC 11/17/21 16:52 15 MG Metoclopramide HCl 10 mg ONCE ONCE IVP 11/17/21 16:45 11/17/21 16:46 DC 11/17/21 16:51 10 MG Vital Signs/I&O 11/17/21 15:50 Temp 36.3 Pulse 123 Resp 16 B/P (MAP) 182/102 (128) Pulse Ox 98 O2 Delivery Room Air Blood Pressure Mean: 128 Progress Progress Note : Time: 18:21 Progress Note feeling much better, looks much better. resting comfortably. Neuro exam is normal. CT negative for acute intracranial abnormailty. Low suspicion for SAH. She still has a little pain. Will follow up with some muscle relaxer. Home with meds. Diagnostic Imaging Diagonstic Imaging: CT Comments [facility], [place] NAME: GEOFF BARRAZA [facility] REC#: [id number] PT STATUS: REG ER : 1980 PHYSICIAN: MAITE SAAVEDRA MD ADMIT DATE: 11/17/21/ER Draft Date of Exam:11/17/21 CT HEAD WO PROCEDURE: CT head without contrast. TECHNIQUE: Multiple contiguous axial images were obtained through the brain without the use of intravenous contrast. Auto Exposure Controls were utilized during the CT exam to meet ALARA standards for radiation dose reduction. INDICATION: Severe head pain. COMPARISON: 08/03/2020. FINDINGS: There is no intracranial hemorrhage, hydrocephalus, edema, mass, mass effect or evidence for elevated pressures. There are no abnormal extra-axial fluid collections. Orbits, sinuses and calvarium unremarkable. IMPRESSION: Stable normal CT head. Dictated on workstation # [id number] Dict: 11/17/211727 Trans: 11/17/211732 PJ [id number] Interpreted by: RUBIN VENRON Electronically signed by: Departure Impression Primary Impression: Acute headache Qualified Codes: R51.9 - Headache, unspecified Disposition: 01 HOME, SELF-CARE Condition: Stable Departure-Patient Inst. Decision time for Depature: 16:49 Referrals: PATIENCE JOHNSTON MD (PCP/Family) Primary Care Physician Patient Instructions: Headache, Adult (DC) Add. Discharge Instructions: Drink plenty of fluids to stay well hydrated. You can take the flexeril - once every 8 hours as needed to help with headache. Do not drive and take this medication. Naproxen 500mg one twice a day over the next 2-3 days as needed for headache. Always take this medication with food. You very much need to make sure you are taking your blood pressure medication to reduce your risk of heart attack and early stroke which could leave you unable to care for yourself. Please call and follow up with your primary care physician. Scripts Naproxen (Naprosyn) 500 Mg Tablet 500 MG PO BID PRN for headache, #14 TAB 0 Refills Prov: MAITE SAAVEDRA MD 11/17/21 Cyclobenzaprine HCl (Cyclobenzaprine HCl) 10 Mg Tablet 10 MG PO Q8H PRN for muscle spasm, #10 TAB Prov: MAITE SAAVEDRA MD 11/17/21 MAITE SAAVEDRA MD Nov 17, 2021 16:52
[2021-11-17] MEDS ORDERED: NAPR-1071 PO (16:55)
[2021-11-17] MEDS ORDERED: CYCL10TA25 PO (16:55)
--- NOTE | 2021-11-17 17:34 | Diagnostic Imaging Report ---
PROCEDURE: CT head without contrast. TECHNIQUE: Multiple contiguous axial images were obtained through the brain without the use of intravenous contrast. Auto Exposure Controls were utilized during the CT exam to meet ALARA standards for radiation dose reduction. INDICATION: Severe head pain. COMPARISON: 08/03/2020. FINDINGS: There is no intracranial hemorrhage, hydrocephalus, edema, mass, mass effect or evidence for elevated pressures. There are no abnormal extra-axial fluid collections. Orbits, sinuses and calvarium unremarkable. IMPRESSION: Stable normal CT head. Dictated by: Dictated on workstation # [id number]
[2021-11-17] MEDS ORDERED: ORPHENADRINE 60 MG/2 ML (NORFLEX) AMP (ED ONLY) IV ONE (18:30)
[2021-11-17 18:47] VITALS: BP 143/91
== END 2021-11-17 18:47 | disposition home or self-care (01) ==
LOC: EDUNIT# 15:26 → ER 15:28
DX: R51.9 Headache, unspecified (principal); I10 Essential (primary) hypertension; F17.210 Nicotine dependence, cigarettes, uncomplicated
CPT/HCPCS: 70450; 84703

== ENCOUNTER → 2022-04-05 | Outpatient (REF) ==
[~2022-04-05] MED LIST changes: +NAPR-1071 PO
--- NOTE | 2022-04-05 13:18 | Diagnostic Imaging Report ---
INDICATION: Right shoulder injury and pain. TIME OF EXAM: 1:08 PM 3 views right shoulder demonstrate normal glenohumeral and acromioclavicular alignment. Acromiohumeral space is normal. No fracture or dislocation is identified. IMPRESSION: No acute bony abnormalities detected. Dictated by: Dictated on workstation # [id number]
== END | disposition home or self-care (01) ==
LOC: OCC 12:52
PROVIDERS: ATTEND Nurse Practitioner Family
DX: Z01.818 Encounter for other preprocedural examination (principal)
CPT/HCPCS: 73030